=== PATIENT | male | born 1965 | race Caucasian/White ===

== ENCOUNTER 2017-02-04 12:13 | Emergency (ER) | payer OTHER, BC ==
[2017-02-04] MEDS ORDERED: Sodium Chloride 0.9% 10 ML Syringe FLUSH PRN (12:27)
[2017-02-04] MEDS ORDERED: Ondansetron 4 MG/2 ML SDV IVPUSH ONE (12:48)
[2017-02-04] MEDS ORDERED: Sodium Chloride 0.9% 1,000 ML IV ONE (12:48)
[2017-02-04] MEDS ORDERED: Morphine 2 MG/ML Syringe IVPUSH ONE (12:48)
[2017-02-04] MEDS ORDERED: Loperamide 1 MG/5 ML Soln 5 ML UD Cup PO ONE (13:02)
[2017-02-04] MEDS ORDERED: Ketorolac 30 MG/ML SDV IVPUSH ONE (13:02)
[2017-02-04] MEDS ORDERED: Loperamide 2 MG Tab PO ONE (13:06)
[2017-02-04 13:11] LABS: CHLORIDE,CL 100 mmol/L (98-107); SODIUM,NA 135 mmol/L (136-145)
[2017-02-04 13:39] VITALS: BP 143/77
--- NOTE | 2017-02-04 14:12 | EDM.PDOC ---
ED HPI GENERAL MEDICAL PROBLEM - General Chief Complaint: Abdominal Pain Stated Complaint: abdominal pain, diarrhea Time Seen by Provider: 02/04/17 12:27 Source of Information: Reports: Patient History Limitations: Reports: No Limitations - History of Present Illness INITIAL COMMENTS - FREE TEXT/NARRATIVE: Patient drove self to ER with complaint of 12 hours of loose stools and abdominal cramping. No obvious food exposures yesterday to suggest food poisoning. ate same food and feels well. Stools are watery and without blood. Cramping improves after each bowel movement and worsens prior to BM. Feels sweaty when cramping peaks, but otherwise has had no fever/chills. Nauseated. No emesis. Approximately 15 bowel movements since symptoms began. ROS negative for HEENT changes/headache. Resp negative for cough/wheezing/changes. No chest or back pain. negative for changes. No generalized aches/limb changes. Denies neuro changes. Did take first dose of new Statin yesterday. Abdomen Pain Score (Numeric/FACES): 6 - Related Data Allergies Allergy/AdvReac Type Severity Reaction Status Date / Time No Known Allergies Allergy Verified 02/04/17 12:14 Home Meds: Home Meds Metoprolol Succinate [Toprol XL] 200 mg PO DAILY 02/04/17 [History] atorvaSTATin [Lipitor] 10 mg PO DAILY 02/04/17 [History] Past Medical History Cardiovascular History: Reports: High Cholesterol, Hypertension Gastrointestinal History: Reports: Gastritis Social & Family History - Tobacco Use Smoking Status *Q: Former Smoker Used Tobacco, but Quit: Yes Month Tobacco Last Used: Quit years ago - Recreational Drug Use Recreational Drug Use: No ED ROS GENERAL - Review of Systems Review Of Systems: ROS reveals no pertinent complaints other than HPI. ED EXAM, GI/ABD - Physical Exam Exam: See Below Exam Limited By: No Limitations General Appearance: Alert, WD/WN, No Apparent Distress Eyes: Bilateral: Normal Appearance, EOMI Ears: Normal External Exam Nose: Normal Inspection Throat/Mouth: Normal Inspection, Normal Lips, Normal Teeth, Normal Gums, Normal Oropharynx, Normal Voice, No Airway Compromise Head: Atraumatic, Normocephalic Neck: Normal Inspection, Supple, Non-Tender, Full Range of Motion Respiratory/Chest: No Respiratory Distress, Lungs Clear, Normal Breath Sounds, No Accessory Muscle Use, Chest Non-Tender Cardiovascular: Normal Peripheral Pulses, Regular Rate, Rhythm, No Edema, No Murmur GI/Abdominal Exam: Soft, No Distention, No Mass, Tender (mildly tender all 4 quadrants, more so periumbilically.), Abnormal Bowel Sounds (diminished in all 4 quadrants). No: Guarding, Rigid, Rebound (Male) Exam: Deferred Rectal (Males) Exam: Deferred Back Exam: Normal Inspection, Full Range of Motion. No: CVA Tenderness (L), CVA Tenderness (R), Muscle Spasm, Paraspinal Tenderness, Vertebral Tenderness Extremities: Normal Inspection, Normal Range of Motion, Non-Tender, No Pedal Edema, Normal Capillary Refill Neurological: Alert, Oriented, Normal Cognition, Normal Gait, No Motor/Sensory Deficits Psychiatric: Normal Affect, Normal Mood Skin Exam: Warm, Dry, Intact, Normal Color, No Rash Course - Vital Signs Last Recorded V/S: Last Vital Signs Temp 36.8 C 02/04/17 12:27 Pulse 69 02/04/17 12:27 Resp 20 02/04/17 12:27 BP 143/77 H 02/04/17 12:27 Pulse Ox 99 02/04/17 12:27 - Orders/Labs/Meds Orders: Active Orders 24 hr Category Date Time Status Abdomen 2V AP Flat Upright [CR] Stat Exams 02/04/17 12:27 Taken UA W/MICROSCOPIC [URIN] Stat Lab 02/04/17 12:27 Uncollected Sodium Chloride 0.9% [Saline Flush] Med 02/04/17 12:27 Active 10 ml FLUSH ASDIRECTED PRN Saline Lock Insert [OM.PC] Routine Oth 02/04/17 12:27 Ordered Medication Orders Sodium Chloride (Saline Flush) 10 ml FLUSH ASDIRECTED PRN PRN Reason: Keep Vein Open Last Admin: 02/04/17 13:16 Dose: 10 ml Labs: Laboratory Tests 02/04/17 02/04/17 Range/Units 12:44 12:44 WBC 10.0 (4.0-10.2) K/uL RBC 5.24 (4.33-5.41) M/uL Hgb 16.5 (13.1-16.8) g/dL Hct 47.2 (39.0-49.0) % MCV 90.1 (84.0-98.0) fL MCH 31.5 (28.2-33.3) pg MCHC 35.0 (31.7-36.0) g/dL RDW 12.7 (11.2-14.1) % Plt Count 203 (150-350) K/uL Neut % (Auto) 80.9 H (45.0-80.0) % Lymph % (Auto) 10.1 (10.0-50.0) % Real % (Auto) 8.0 (2.0-14.0) % Eos % (Auto) 0.8 (0.0-5.0) % Baso % (Auto) 0.2 (0.0-2.0) % Neut # (Auto) 8.12 H (1.40-7.00) K/uL Lymph # (Auto) 1.01 (0.50-3.50) K/uL Real # (Auto) 0.80 (0.00-1.00) K/uL Eos # (Auto) 0.08 (0.00-0.50) K/uL Baso # (Auto) 0.02 (0.00-0.20) K/uL Sodium 135 L (136-145) mmol/L Potassium 4.3 (3.5-5.1) mmol/L Chloride 100 (98-107) mmol/L Carbon Dioxide 24.3 (21.0-32.0) mmol/L BUN 18 (7-18) mg/dL Creatinine 1.03 (0.51-1.17) mg/dL Est Cr Clr Drug Dosing TNP Estimated GFR (MDRD) > 60 mL/min Glucose 112 H (74-106) mg/dL Calcium 9.6 (8.5-10.1) mg/dL Total Bilirubin 0.6 (0.2-1.0) mg/dL AST 31 (15-37) U/L ALT 80 H (12-78) U/L Alkaline Phosphatase 101 (46-116) IU/L Total Protein 8.4 H (6.4-8.2) g/dL Albumin 4.4 (3.4-5.0) g/dL Meds: Medications Generic Name Dose Route Start Last Admin Trade Name Freq PRN Reason Stop Dose Admin Sodium Chloride 10 ml 02/04/17 12:27 02/04/17 13:16 Saline Flush FLUSH 10 ml ASDIRECTED PRN Administration Keep Vein Open Discontinued Medications Generic Name Dose Route Start Last Admin Trade Name Dino PRN Reason Stop Dose Admin Sodium Chloride 1,000 mls @ 999 mls/hr 02/04/17 12:48 02/04/17 12:56 Normal Saline IV 02/04/17 13:48 999 mls/hr .BOLUS ONE Administration Ketorolac Tromethamine 30 mg 02/04/17 13:02 02/04/17 13:14 Toradol IVPUSH 02/04/17 13:03 30 mg ONETIME ONE Administration Loperamide HCl 4 mg 02/04/17 13:02 02/04/17 13:08 Imodium PO 02/04/17 13:03 Not Given ONETIME ONE Loperamide HCl 4 mg 02/04/17 13:06 02/04/17 13:14 Imodium Ad PO 02/04/17 13:07 4 mg ONETIME ONE Administration Morphine Sulfate 2 mg 02/04/17 12:48 02/04/17 13:08 Morphine IVPUSH 02/04/17 12:49 Not Given ONETIME ONE Ondansetron HCl 4 mg 02/04/17 12:48 02/04/17 13:14 Zofran IVPUSH 02/04/17 12:49 4 mg ONETIME ONE Administration - Radiology Interpretation Free Text/Narrative:: Some air/fluid levels noted suggestive of viral ileus. No free air noted. - Re-Assessments/Exams Free Text/Narrative Re-Assessment/Exam: Patient given IV fluid bolus along with Toradol and Zofran. Was feeling much improved when re-evaluated. WBC normal. Did not give UA. CBC and Chem overall unremarkable. Work slip given. Patient to advance fluids/food as tolerated. Recommended clear liquids for now. To follow up as needed. Suspect single dose Lipitor would not give this amount of GI disturbance, however diarrhea is a listed side effect of Lipitor. Recommended that patient hold off on taking additional Lipitor for one week then trying it again. If similar GI symptoms return then he should discontinue that medication and follow up with his provider. Departure - Departure Time of Disposition: 14:10 Disposition: Home, Self-Care 01 Condition: Good Clinical Impression: Gastroenteritis - Discharge Information Instructions: Loperamide tablets or capsules, Ketorolac injection, Ondansetron injection, Viral Gastroenteritis, Adult, [id number], Diarrhea, Adult, Easy-to- Read Referrals: Kala Sommers PA-C [Primary Care Provider] - Forms: ED Department Discharge, ED Return to Work/School Form Additional Instructions: Advance diet as tolerated. Imodium as needed for continued loose stools. Follow up as needed if you have worsening problems. - My Orders Last 24 Hours: My Active Orders 02/04/17 12:27 Abdomen 2V AP Flat Upright [CR] Stat UA W/MICROSCOPIC [URIN] Stat Sodium Chloride 0.9% [Saline Flush] 10 ml FLUSH ASDIRECTED PRN Saline Lock Insert [OM.PC] Routine - Assessment/Plan Last 24 Hours: My Active Orders 02/04/17 12:27 Abdomen 2V AP Flat Upright [CR] Stat UA W/MICROSCOPIC [URIN] Stat Sodium Chloride 0.9% [Saline Flush] 10 ml FLUSH ASDIRECTED PRN Saline Lock Insert [OM.PC] Routine
== END 2017-02-04 14:20 | disposition home or self-care (01) ==
LOC: LL.ED 12:13
DX: K52.9 Noninfective gastroenteritis and colitis, unspecified (principal); Z87.891 Personal history of nicotine dependence
CPT/HCPCS: 36415; 74020; 80053; 85025; 96361; 96374; 96375; 99284; A9270; J1885; J2405; J7030; J7050

== ENCOUNTER 2017-04-10 12:03 | Day surgery (SDC) | payer OTHER, BC ==
[~2017-04-10 12:03] MED LIST: Lactated Ringers 1,000 ML IV SCH; Sodium Chloride 0.9% 10 ML Syringe FLUSH PRN
[2017-04-10] MEDS ORDERED: fentaNYL 100 MCG/2 ML SDV ONE ×2 (14:21→14:27)
[2017-04-10] MEDS ORDERED: Midazolam 1 MG/ML 2 ML SDV ONE ×2 (14:21→14:27)
[2017-04-10] MEDS ORDERED: Propofol 200 MG/20 ML SDV ONE ×2 (14:22→14:27)
--- NOTE | 2017-04-10 14:24 | PCM.PN ---
- General Info Date of Service: 04/10/17 - Review of Systems Systems Review Comment:: 51-year-old male referred by Arnav Horne for colonoscopy. This is his initial screening colonoscopy. He denies any recent colon problems. He states his mother had colon polyps. He is medically stable to proceed with no significant change in his health status since his recent history and physical which is reviewed. I discussed the proposed colonoscopy with the patient. Risks such as but not limited to bleeding and GI injury reviewed. He appears to understand and agrees to proceed. - Patient Data Vitals - Most Recent: Last Vital Signs Temp 97.7 F 04/10/17 12:24 Pulse 56 L 04/10/17 12:24 Resp 20 04/10/17 12:24 BP 136/95 H 04/10/17 12:24 Pulse Ox 100 04/10/17 12:24 Weight - Most Recent: 113.398 kg Med Orders - Current: Current Medications Lactated Ringer's (Ringers, Lactated) 1,000 mls @ 125 mls/hr IV ASDIRECTED MAXINE Last Admin: 04/10/17 12:43 Dose: 125 mls/hr Sodium Chloride (Saline Flush) 10 ml FLUSH ASDIRECTED PRN PRN Reason: Keep Vein Open - Problem List Review Problem List Initiated/Reviewed/Updated: Yes - My Orders Last 24 Hours: My Active Orders 04/10/17 12:00 Patient Status [ADT] Routine Peripheral IV Care [RC] . DIRECTED Verify Patient Consent Obtain [RC] ASDIRECTED Lactated Ringers [Ringers, Lactated] 1,000 ml IV ASDIRECTED Sodium Chloride 0.9% [Saline Flush] 10 ml FLUSH ASDIRECTED PRN Peripheral IV Insertion Adult [OM.PC] Routine - Assessment Assessment:: Colon cancer screening - Plan Plan:: Colonoscopy
--- NOTE | 2017-04-10 15:12 | PCM.OPNOTE ---
- General Post-Op/Procedure Note Date of Surgery/Procedure: 04/10/17 Operative Procedure(s): Colonoscopy with polypectomy Findings: Multiple colon polyps Pre Op Diagnosis: Colon cancer screening Post-Op Diagnosis: Colon polyps Anesthesia Technique: MAC Primary Surgeon: Kobe Lebron Pathology: Colon polyps Output, Urine Amount: 0 EBL in mLs: 0 Complications: None Condition: Good Free Text/Narrative:: Intake & Output 04/10/17 04/10/17 04/10/17 06:59 14:59 22:59 Intake Total 1000 Balance 1000
[2017-04-10 19:04] VITALS: BP 161/92
--- NOTE | 2017-04-11 08:06 | OR ---
Date of Procedure: 04/10/2017 PREOPERATIVE DIAGNOSIS: Colon cancer screening. POSTOPERATIVE DIAGNOSIS: Colon polyps. OPERATION PERFORMED: Colonoscopy with polypectomy. INDICATIONS FOR SURGERY: This 51-year-old male presents today for his initial screening colonoscopy. He denies any recent change in bowel pattern. FINDINGS: Multiple polyps were noted on today's exam. There is a 6-mm polyp in the rectum, 10 cm from the anal verge, an 8 mm polyp in the sigmoid colon, 15 cm from the anal verge. There was a 5 mm polyp of the splenic flexure, a 5 mm polyp in the mid transverse colon, and cluster of three polyps in the region of the hepatic flexure, these range in size from 5 to 8 mm. Each of these polyps is semi pedunculated. The remainder of the colon appears normal as does the distal portion of the terminal ileum. PROCEDURE IN DETAIL: The patient was taken to the operating room. He was given intravenous sedation and with him in the left lateral decubitus position, digital rectal exam was performed showing no rectal masses. The Olympus colonoscope was inserted into the rectum. Retroflexed examination of the rectal canal was performed. The scope was then carefully advanced under direct visualization and during advancement of the scope, the above-described polyps were identified. As these polyps were encountered, each are removed with cautery snare and retrieved into a polyp trap. Once the cecum had been reached, cecal acquisition was confirmed by noting the normal internal cecal anatomy including the appendiceal orifice and ileocecal valve. The light was also noted to transilluminate the abdominal wall in the right lower quadrant. The ileocecal valve was cannulated and the terminal ileum also examined and found to appear normal. Slowly, the scope was then withdrawn, sequentially re-examining the colonic segments. Once the entire colon and rectum had been fully examined with no sign of any complicating process, the scope was removed and the patient was taken from the operating room in satisfactory condition. ESTIMATED BLOOD LOSS: Zero. COMPLICATIONS: None. PROGNOSIS: Good. STEVE Lebron MD /[id number]
== END 2017-04-10 17:00 | disposition home or self-care (01) ==
LOC: LL.SDS 12:03
PROVIDERS: ATTEND Surgery
DX: Z12.11 Encounter for screening for malignant neoplasm of colon (principal); D12.3 Benign neoplasm of transverse colon; D12.5 Benign neoplasm of sigmoid colon; K62.1 Rectal polyp; I10 Essential (primary) hypertension; E78.00 Pure hypercholesterolemia, unspecified; Z79.899 Other long term (current) drug therapy; Z87.891 Personal history of nicotine dependence; Z83.71 Family history of colonic polyps; Z98.890 Other specified postprocedural states; Z83.3 Family history of diabetes mellitus
CPT/HCPCS: 45385; J2250; J2704; J3010; J7120; 00810-QZ

== ENCOUNTER 2021-04-09 20:13 | Inpatient (IN) | payer BC, OTHER ==
[2021-04-09] MEDS ORDERED: Sodium Chloride 0.9% 1,000 ML IV SCH ×2 (20:30→21:30)
--- NOTE | 2021-04-09 20:43 | EDM.PDOC ---
ED HPI GENERAL MEDICAL PROBLEM - General Chief Complaint: General Stated Complaint: cough, syncopal episode, SOB Time Seen by Provider: 04/09/21 20:25 Source of Information: Reports: Patient, Family History Limitations: Reports: No Limitations - History of Present Illness INITIAL COMMENTS - FREE TEXT/NARRATIVE: Patient presents to the ED with his after a syncopal event at home. He has been ill for 6 days with fever that was present for about three days, followed by cough, headache, bodyaches and loss of appetite. he has been taking aleve for pain with last dose at 15:00. He has not sick contacts. Is not vaccinated against COVID 19. Has hypertension and takes a beta anibal for this. Notes that his urine has been dark in the last couple of days, but thinks it could be due to his alkaselzer cold medication that he is taking. Normal stools, but less due to less food intake. No loss of taste or smell. biggest complaint over the last couple of days is fatigue, shortness of breath with activity. Tonight he got up to get a glass of milk, sat back down with it and had a syncopal episode. He slumped over in his chair on the counter. He came to quickly and was fine. no headache, premonition or chest pain prior to. brought him in with no neurological deficit. No lung disease. 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: aleve - Related Data Allergies Allergy/AdvReac Type Severity Reaction Status Date / Time No Known Allergies Allergy Verified 04/10/17 12:26 Home Meds: Home Meds Metoprolol Succinate [Toprol XL] 200 mg PO DAILY 02/04/17 [History] atorvaSTATin [Lipitor] 10 mg PO BEDTIME 04/09/21 [History] Past Medical History Cardiovascular History: Reports: High Cholesterol, Hypertension Respiratory History: Reports: None Gastrointestinal History: Reports: None Genitourinary History: Reports: None Musculoskeletal History: Reports: Fracture Neurological History: Reports: None Psychiatric History: Reports: None Endocrine/Metabolic History: Reports: Obesity/BMI 30+ Other Endocrine/Metabolic History: Hx mildly elevated glucose levels with normal A1c Hematologic History: Reports: None Immunologic History: Reports: None Oncologic (Cancer) History: Reports: None Dermatologic History: Reports: None - Past Surgical History HEENT Surgical History: Reports: Other (See Below) Other HEENT Surgeries/Procedures: Cyst removal on neck Social & Family History - Tobacco Use Tobacco Use Status *Q: Never Tobacco User - Caffeine Use Caffeine Use: Reports: Tea - Alcohol Use Alcohol Use History: Yes Date/Time of Last Drink Comment: 04/02/2021 - Recreational Drug Use Recreational Drug Use: No Drug Use in Last 12 Months: No ED ROS GENERAL - Review of Systems Review Of Systems: See Below Constitutional: Reports: Fever, Chills, Malaise, Weakness, Fatigue, Decreased Appetite HEENT: Denies: Ear Discharge, Eye Discharge, Sinus Problem, Throat Pain, Throat Swelling, Vertigo Respiratory: Reports: Shortness of Breath, Cough. Denies: Wheezing, Pleuritic Chest Pain, Sputum Cardiovascular: Reports: Dyspnea on Exertion, Syncope. Denies: Chest Pain, Blood Pressure Problem, Edema GI/Abdominal: Denies: Abdominal Pain, Constipation, Diarrhea, Nausea, Stool Incontinence, Vomiting : Reports: Other (dark urine for a couple of days) Skin: Reports: No Symptoms Neurological: Reports: Headache, Syncope, Weakness Psychiatric: Reports: No Symptoms Hematologic/Lymphatic: Reports: No Symptoms Immunologic: Reports: No Symptoms ED EXAM, GENERAL - Physical Exam Exam: See Below Exam Limited By: No Limitations General Appearance: Alert, WD/WN, No Apparent Distress Eye Exam: Bilateral Eye: EOMI, Normal Inspection, PERRL Ears: Normal External Exam, Normal Canal, Hearing Grossly Normal, Normal TMs Nose: Normal Inspection, Normal Mucosa, No Blood Throat/Mouth: Normal Lips, Normal Teeth, Normal Voice, Other (mild tacky mucous membranes) Head: Atraumatic Neck: Normal Inspection Respiratory/Chest: No Respiratory Distress, Normal Breath Sounds, No Accessory Muscle Use, Decreased Breath Sounds (bases). No: Crackles, Rales, Wheezing Cardiovascular: Normal Peripheral Pulses, Regular Rate, Rhythm, No Edema, No Murmur GI/Abdominal: Normal Bowel Sounds, Soft, Non-Tender, No Distention Back Exam: Normal Inspection, Full Range of Motion. No: CVA Tenderness (L), CVA Tenderness (R) Extremities: Normal Inspection, Normal Range of Motion, Non-Tender, Normal Capillary Refill, Other (skin tenting) Neurological: Alert, Oriented, CN II-XII Intact, Normal Cognition, Normal Gait, No Motor/Sensory Deficits Psychiatric: Normal Affect Skin Exam: Warm, Dry, No Rash #1 Interpretation EKG Date: 04/09/21 Time: 22:24 Rhythm: NSR Campbell: Normal P-Wave: Present QRS: Normal ST-T: Normal Comparison: NA - No Prior EKG EKG Interpretation Comments: baseline artifact, poor quality Course - Vital Signs Last Recorded V/S: Last Vital Signs Temp 36.9 C 04/09/21 22:49 Pulse 81 04/09/21 22:49 Resp 20 04/09/21 22:49 BP 152/86 H 04/09/21 22:49 Pulse Ox 91 L 04/09/21 22:49 - Orders/Labs/Meds Orders: Active Orders 24 hr Category Date Time Status Admission Status [Patient Status] [ADT] Routine ADT 04/09/21 21:52 Active EKG Documentation Completion [RC] ASDIRECTED Care 04/09/21 21:30 Active Peripheral IV Care [RC] . DIRECTED Care 04/09/21 20:25 Active PE Chest [Ang Chest] [CT] Stat Exams 04/09/21 21:35 Taken UA RFX MILTON AND CULT IF INDIC [URIN] Stat Lab 04/09/21 20:39 Ordered Sodium Chloride 0.9% [Normal Saline] 1,000 ml Med 04/09/21 20:30 Active IV ASDIRECTED Sodium Chloride 0.9% [Normal Saline] 1,000 ml Med 04/09/21 21:30 Active IV ASDIRECTED Sodium Chloride 0.9% [Saline Flush] Med 04/09/21 20:25 Active 10 ml FLUSH ASDIRECTED PRN atorvaSTATin [Lipitor] Med 04/10/21 20:00 Active 10 mg PO BEDTIME Peripheral IV Insertion Adult [OM.PC] Routine Oth 04/09/21 20:25 Ordered Medication Orders Acetaminophen (Acetaminophen 325 Mg Tab) 650 mg PO Q4H PRN PRN Reason: Fever Greater Than 101 Hydrocodone Bitart/Acetaminophen (Acetaminophen/Hydrocodone 325-5 Mg Tab) 1 tab PO Q4H PRN PRN Reason: Pain (moderate 4-6) Albuterol (Albuterol 0.083% 2.5 Mg/3 Ml Neb Soln) 2.5 mg NEB Q2H PRN PRN Reason: Shortness Of Breath/wheezing Albuterol/Ipratropium (Albuterol/Ipratropium 3.0-0.5 Mg/3 Ml Neb Soln) 3 ml NEB BID [facility] Ascorbic Acid (Ascorbic Acid 500 Mg Tab) 500 mg PO BID [facility] Atorvastatin Calcium (Atorvastatin 10 Mg Tab) 10 mg PO BEDTIME [facility] Benzonatate (Benzonatate 100 Mg Cap) 200 mg PO TID [facility] Bisacodyl (Bisacodyl 5 Mg Tab) 5 mg PO DAILY PRN PRN Reason: Constipation Cholecalciferol (Cholecalciferol (Vitamin D3) 5,000 Unit Tab) 5,000 unit PO DAILY [facility] Dexamethasone (Dexamethasone 2 Mg Tab) 6 mg PO DAILY [facility] Stop: 04/19/21 08:01 Enoxaparin Sodium (Enoxaparin 40 Mg/0.4 Ml Syringe) 40 mg SUBCUT DAILY [facility] Sodium Chloride (Normal Saline) 1,000 mls @ 999 mls/hr IV ASDIRECTED [facility] Last Admin: 04/09/21 20:50 Dose: 999 mls/hr Documented by: BERHANE Sodium Chloride (Normal Saline) 1,000 mls @ 999 mls/hr IV ASDIRECTED [facility] Last Admin: 04/09/21 21:50 Dose: 999 mls/hr Documented by: BERHANE Remdesivir 100 mg/ Sodium (Chloride) 100 mls @ 100 mls/hr IV Q24H [facility] Stop: 04/13/21 09:59 Ibuprofen (Ibuprofen 600 Mg Tab) 600 mg PO Q6H PRN PRN Reason: Pain (mild 1-3) Melatonin (Melatonin 3 Mg Tab) 6 mg PO BEDTIME PRN PRN Reason: Insomnia Metoprolol Succinate (Metoprolol Succinate 50 Mg Tab.Er) 200 mg PO DAILY [facility] Ondansetron HCl (Ondansetron 4 Mg Tab.Dis) 4 mg PO Q4H PRN PRN Reason: Nausea/Vomiting Ondansetron HCl (Ondansetron 4 Mg/2 Ml Sdv) 4 mg IVPUSH Q4H PRN PRN Reason: Nausea/Vomiting Sodium Chloride (Sodium Chloride 0.9% 10 Ml Syringe) 10 ml FLUSH ASDIRECTED PRN PRN Reason: Keep Vein Open Zinc Gluconate (Zinc (Zinc Gluconate) 50 Mg Tab) 50 mg PO DAILY [facility] Labs: Laboratory Tests 04/09/21 04/09/21 04/09/21 Range/Units 20:25 20:45 20:45 WBC 6.2 (4.0-10.2) K/uL RBC 4.68 (4.33-5.41) M/uL Hgb 14.3 D (13.1-16.8) g/dL Hct 42.4 (39.0-49.0) % MCV 90.6 (84.0-98.0) fL MCH 30.6 (28.2-33.3) pg MCHC 33.7 (31.7-36.0) g/dL RDW 12.8 (11.2-14.1) % Plt Count 105 L D (150-350) K/uL Neut % (Auto) 84.2 H (45.0-80.0) % Lymph % (Auto) 11.6 (10.0-50.0) % Bulloch % (Auto) 4.2 (2.0-14.0) % Eos % (Auto) 0.0 (0.0-5.0) % Baso % (Auto) 0.0 (0.0-2.0) % Neut # (Auto) 5.22 (1.40-7.00) K/uL Lymph # (Auto) 0.72 (0.50-3.50) K/uL Bulloch # (Auto) 0.26 (0.00-1.00) K/uL Eos # (Auto) 0.00 (0.00-0.50) K/uL Baso # (Auto) 0.00 (0.00-0.20) K/uL D-Dimer, Quantitative 1710 H (0-400) ng/mL Sodium (136-145) mmol/L Potassium (3.5-5.1) mmol/L Chloride (98-107) mmol/L Carbon Dioxide (21.0-32.0) mmol/L Anion Gap (7-15) meq/L BUN (7-18) mg/dL Creatinine (0.51-1.17) mg/dL Est Cr Clr Drug Dosing Estimated GFR (MDRD) mL/min Glucose (70-99) mg/dL Calcium (8.5-10.1) mg/dL Magnesium (1.8-2.4) mg/dL Total Bilirubin (0.2-1.0) mg/dL AST (15-37) U/L ALT (12-78) U/L Alkaline Phosphatase (46-116) IU/L Troponin I High Sens (<=76) ng/L C-Reactive Protein (<=0.9) mg/dL Total Protein (6.4-8.2) g/dL Albumin (3.4-5.0) g/dL SARS-CoV-2 Ag (Rapid) Positive A (NEGATIVE) 04/09/21 04/09/21 Range/Units 20:45 20:45 WBC (4.0-10.2) K/uL RBC (4.33-5.41) M/uL Hgb (13.1-16.8) g/dL Hct (39.0-49.0) % MCV (84.0-98.0) fL MCH (28.2-33.3) pg MCHC (31.7-36.0) g/dL RDW (11.2-14.1) % Plt Count (150-350) K/uL Neut % (Auto) (45.0-80.0) % Lymph % (Auto) (10.0-50.0) % Bulloch % (Auto) (2.0-14.0) % Eos % (Auto) (0.0-5.0) % Baso % (Auto) (0.0-2.0) % Neut # (Auto) (1.40-7.00) K/uL Lymph # (Auto) (0.50-3.50) K/uL Bulloch # (Auto) (0.00-1.00) K/uL Eos # (Auto) (0.00-0.50) K/uL Baso # (Auto) (0.00-0.20) K/uL D-Dimer, Quantitative (0-400) ng/mL Sodium 137 (136-145) mmol/L Potassium 4.1 (3.5-5.1) mmol/L Chloride 99 (98-107) mmol/L Carbon Dioxide 27.5 (21.0-32.0) mmol/L Anion Gap 10.5 (7-15) meq/L BUN 14 (7-18) mg/dL Creatinine 0.98 (0.51-1.17) mg/dL Est Cr Clr Drug Dosing TNP Estimated GFR (MDRD) > 60 mL/min Glucose 139 H (70-99) mg/dL Calcium 8.4 L (8.5-10.1) mg/dL Magnesium 2.4 (1.8-2.4) mg/dL Total Bilirubin 0.5 (0.2-1.0) mg/dL AST 57 H (15-37) U/L ALT 64 (12-78) U/L Alkaline Phosphatase 72 (46-116) IU/L Troponin I High Sens 5 (<=76) ng/L C-Reactive Protein 23.2 H (<=0.9) mg/dL Total Protein 6.9 (6.4-8.2) g/dL Albumin 3.3 L (3.4-5.0) g/dL SARS-CoV-2 Ag (Rapid) (NEGATIVE) Meds: Medications Generic Name Dose Route Start Last Admin Trade Name Freq PRN Reason Stop Dose Admin Acetaminophen 650 mg 04/09/21 22:04 Acetaminophen 325 Mg Tab PO Q4H PRN Fever Greater Than 101 Hydrocodone Bitart/Acetaminophen 1 tab 04/09/21 22:04 Acetaminophen/Hydrocodone 325-5 Mg Tab PO Q4H PRN Pain (moderate 4-6) Albuterol 2.5 mg 04/09/21 22:04 Albuterol 0.083% 2.5 Mg/3 Ml Neb Soln NEB Q2H PRN Shortness Of Breath/wheezing Albuterol/Ipratropium 3 ml 04/10/21 08:00 Albuterol/Ipratropium 3.0-0.5 Mg/3 Ml Neb Soln NEB BID [facility] Ascorbic Acid 500 mg 04/10/21 08:00 Ascorbic Acid 500 Mg Tab PO BID [facility] Atorvastatin Calcium 10 mg 04/10/21 20:00 Atorvastatin 10 Mg Tab PO BEDTIME [facility] Benzonatate 200 mg 04/10/21 08:00 Benzonatate 100 Mg Cap PO TID [facility] Bisacodyl 5 mg 04/09/21 22:04 Bisacodyl 5 Mg Tab PO DAILY PRN Constipation Cholecalciferol 5,000 unit 04/10/21 08:00 Cholecalciferol (Vitamin D3) 5,000 Unit Tab PO DAILY [facility] Dexamethasone 6 mg 04/10/21 08:00 Dexamethasone 2 Mg Tab PO 04/19/21 08:01 DAILY [facility] Enoxaparin Sodium 40 mg 04/10/21 08:00 Enoxaparin 40 Mg/0.4 Ml Syringe SUBCUT DAILY [facility] Sodium Chloride 1,000 mls @ 999 mls/hr 04/09/21 20:30 04/09/21 20:50 Normal Saline IV 999 mls/hr ASDIRECTED [facility] Administration Sodium Chloride 1,000 mls @ 999 mls/hr 04/09/21 21:30 04/09/21 21:50 Normal Saline IV 999 mls/hr ASDIRECTED [facility] Administration Remdesivir 100 mg/ Sodium 100 mls @ 100 mls/hr 04/10/21 09:00 Chloride IV 04/13/21 09:59 Q24H [facility] Ibuprofen 600 mg 04/09/21 22:04 Ibuprofen 600 Mg Tab PO Q6H PRN Pain (mild 1-3) Melatonin 6 mg 04/09/21 22:04 Melatonin 3 Mg Tab PO BEDTIME PRN Insomnia Metoprolol Succinate 200 mg 04/10/21 08:00 Metoprolol Succinate 50 Mg Tab.Er PO DAILY [facility] Ondansetron HCl 4 mg 04/09/21 22:04 Ondansetron 4 Mg Tab.Dis PO Q4H PRN Nausea/Vomiting Ondansetron HCl 4 mg 04/09/21 22:04 Ondansetron 4 Mg/2 Ml Sdv IVPUSH Q4H PRN Nausea/Vomiting Sodium Chloride 10 ml 04/09/21 20:25 Sodium Chloride 0.9% 10 Ml Syringe FLUSH ASDIRECTED PRN Keep Vein Open Zinc Gluconate 50 mg 04/10/21 08:00 Zinc (Zinc Gluconate) 50 Mg Tab PO DAILY [facility] Discontinued Medications Generic Name Dose Route Start Last Admin Trade Name Freq PRN Reason Stop Dose Admin Dexamethasone 6 mg 04/09/21 21:48 04/09/21 21:57 Dexamethasone 2 Mg Tab PO 04/09/21 21:49 6 mg ONETIME ONE Administration Remdesivir 200 mg/ Sodium 250 mls @ 250 mls/hr 04/09/21 21:49 04/09/21 23:14 Chloride IV 04/09/21 22:48 250 mls/hr ONETIME ONE Administration Iopamidol 100 ml 04/09/21 21:52 04/09/21 22:42 Iopamidol 755 Mg/Ml 100 Ml Bottle IVPUSH 04/09/21 21:53 100 ml ONETIME ONE Administration Non-Formulary Medication 200 mg 04/10/21 08:00 Metoprolol Succinate [Toprol Xl] PO DAILY [facility] - Radiology Interpretation Free Text/Narrative:: ct pe protocol with moderate covid pneumonia, no PE, discussed with radiologist, see report - Re-Assessments/Exams Free Text/Narrative Re-Assessment/Exam: 04/09/21 20:44 patient is clinically dehydrated, not taking in fluids, but difficult to find a vein in. Will start an IV, give one liter of normal saline, check labs, to include troponin, ddimer and check covid. Not a smoker, last drink 7 days ago. no drug use. Is open to treatments for covid. Sats at rest on room air are 89- 91%. Breathing is not labored. will await the ddimer to determine imaging 04/09/21 21:32 Patient is positive for covid. sats of 89% at rest. Needs admission, remdesivir and decadron. Discussed incentive spirometer, nebs, oxygen, and proning. patient is agreeable. is vaccinated and he has notified work as he has been there this week 04/09/21 21:48 ddimer and crp are elevated, will get a ct pe protocol, then admit. 04/09/21 23:00 Patient is moved to his room as inpatient. Allowed to walk to the bathroom without oxygen. Did drop to 75%, recovered quickly with oxygen at 2-3 liters. Needs oxygen at all times. Departure - Departure Time of Disposition: 23:00 Disposition: Admitted As Inpatient 66 Condition: Good Clinical Impression: Acute respiratory disease due to COVID-19 virus, Hypoxia, Thrombocytopenia associated with COVID-19 - Discharge Information Sepsis Event Note (ED) - Evaluation Sepsis Screening Result: No Definite Risk - Focused Exam Vital Signs: Vital Signs Temp Pulse Resp BP Pulse Ox 04/09/21 21:25 37.6 C 86 27 H 152/77 H 91 L 04/09/21 21:10 84 28 H 139/69 91 L 04/09/21 20:55 84 26 H 137/74 91 L 04/09/21 20:24 81 24 H 135/72 91 L 04/09/21 20:17 37.2 C 79 18 138/75 91 L - My Orders Last 24 Hours: My Active Orders 04/09/21 20:25 Peripheral IV Care [RC] . DIRECTED Sodium Chloride 0.9% [Saline Flush] 10 ml FLUSH ASDIRECTED PRN Peripheral IV Insertion Adult [OM.PC] Routine 04/09/21 20:30 Sodium Chloride 0.9% [Normal Saline] 1,000 ml IV ASDIRECTED 04/09/21 20:39 UA RFX MILTON AND CULT IF INDIC [URIN] Stat 04/09/21 21:30 EKG Documentation Completion [RC] ASDIRECTED Sodium Chloride 0.9% [Normal Saline] 1,000 ml IV ASDIRECTED 04/09/21 21:35 PE Chest [Ang Chest] [CT] Stat 04/09/21 21:52 Admission Status [Patient Status] [ADT] Routine 04/10/21 20:00 atorvaSTATin [Lipitor] 10 mg PO BEDTIME - Assessment/Plan Last 24 Hours: My Active Orders 04/09/21 20:25 Peripheral IV Care [RC] . DIRECTED Sodium Chloride 0.9% [Saline Flush] 10 ml FLUSH ASDIRECTED PRN Peripheral IV Insertion Adult [OM.PC] Routine 04/09/21 20:30 Sodium Chloride 0.9% [Normal Saline] 1,000 ml IV ASDIRECTED 04/09/21 20:39 UA RFX [place] AND CULT IF INDIC [URIN] Stat 04/09/21 21:30 EKG Documentation Completion [RC] ASDIRECTED Sodium Chloride 0.9% [Normal Saline] 1,000 ml IV ASDIRECTED 04/09/21 21:35 PE Chest [Ang Chest] [CT] Stat 04/09/21 21:52 Admission Status [Patient Status] [ADT] Routine 04/10/21 20:00 atorvaSTATin [Lipitor] 10 mg PO BEDTIME
[2021-04-09 21:24] LABS: ANION GAP 10.5 meq/L (7-15); CHLORIDE,CL 99 mmol/L (98-107); SODIUM,NA 137 mmol/L (136-145)
[2021-04-09] MEDS ORDERED: Dexamethasone 2 MG Tab PO ONE (21:48)
[2021-04-09] MEDS ORDERED: REMDESIVIR 200 MG in Sodium Chloride 0.9% 250 ML IV ONE (21:49)
[2021-04-09] MEDS ORDERED: Iopamidol 755 Mg/ML 100 ML Bottle IVPUSH ONE (21:52)
[2021-04-09] MEDS ORDERED: Melatonin 3 MG Tab PO PRN (22:04)
[2021-04-09] MEDS ORDERED: Ondansetron 4 MG/2 ML SDV IVPUSH PRN (22:04)
[2021-04-09] MEDS ORDERED: Ibuprofen 600 MG Tab PO PRN (22:04)
[2021-04-09] MEDS ORDERED: Acetaminophen/HYDROcodone 325-5 MG Tab PO PRN (22:04)
[2021-04-09] MEDS ORDERED: Ondansetron 4 MG Tab.DIS PO PRN (22:04)
[2021-04-09] MEDS ORDERED: Bisacodyl 5 MG Tab PO PRN (22:04)
[2021-04-10] MEDS: Albuterol 0.083% 2.5 MG/3 ML Neb Soln NEB PRN (00:34)
[2021-04-10] MEDS: Sodium Chloride 0.9% 10 ML Syringe FLUSH PRN (00:35)
[2021-04-10] MEDS ORDERED: METOPROLOL SUCCINATE 200 MG PO SCH (08:00)
[2021-04-10] MEDS: Albuterol/Ipratropium 3.0-0.5 MG/3 ML Neb Soln NEB SCH ×2 (08:01→17:30)
[2021-04-10] MEDS: Enoxaparin 40 MG/0.4 ML Syringe SUBCUT SCH (08:01)
[2021-04-10] MEDS: Dexamethasone 2 MG Tab PO SCH (08:02)
[2021-04-10] MEDS: Cholecalciferol (Vitamin D3) 5,000 UNIT Tab PO SCH (08:03)
[2021-04-10] MEDS: Metoprolol Succinate 50 MG Tab.ER PO SCH (08:03)
[2021-04-10] MEDS: Zinc (Zinc Gluconate) 50 MG Tab PO SCH (08:03)
[2021-04-10] MEDS: Benzonatate 100 MG Cap PO SCH ×3 (08:03→17:31)
[2021-04-10] MEDS: Ascorbic Acid 500 MG Tab PO SCH ×2 (08:03→17:30)
[2021-04-10 08:19] LABS: ANION GAP 9.3 meq/L (7-15); CHLORIDE,CL 103 mmol/L (98-107); SODIUM,NA 140 mmol/L (136-145)
[2021-04-10] MEDS ORDERED: REMDESIVIR 100 MG in Sodium Chloride 0.9% 100 ML IV SCH (09:00)
--- NOTE | 2021-04-10 10:30 | PCM.PN ---
- General Info Date of Service: 04/10/21 Admission Dx/Problem (Free Text): Admission Diagnosis/Problem Admission Diagnosis/Problem Acute respiratory failure with hypoxemia due to covid 19 Subjective Update: Patient had a good night. Managed to sleep prone. Sats are 93% on 3.5 lpm nc. feeling better. Doing the incentive spirometer to 1999. EAting today and taking in fluids. no pain. no fevers. Had first dose of remdesivir yesterday Functional Status: Reports: Pain Controlled, Tolerating Diet, Ambulating, Urinating, Incentive Spirometry. Denies: New Symptoms - Review of Systems General: Reports: Fatigue HEENT: Reports: No Symptoms Pulmonary: Reports: Shortness of Breath, Cough (unchanged, but improvement in deep breaths) Cardiovascular: Reports: No Symptoms Gastrointestinal: Reports: No Symptoms Genitourinary: Reports: No Symptoms Musculoskeletal: Reports: Other (myalgias improving) Skin: Reports: No Symptoms Neurological: Reports: No Symptoms. Denies: Confusion (improving mentation per the ) Psychiatric: Reports: No Symptoms - Patient Data Vitals - Most Recent: Last Vital Signs Temp 36.4 C 04/10/21 08:00 Pulse 70 04/10/21 08:03 Resp 20 04/10/21 08:00 BP 134/86 04/10/21 08:03 Pulse Ox 96 04/10/21 08:00 Weight - Most Recent: 114.305 kg I&O - Last 24 Hours: Intake & Output 04/09/21 04/10/21 04/10/21 22:59 06:59 14:59 Intake Total 2690 Output Total 850 Balance 1840 Imaging Impressions - Last 24 Hours: CT chest PE without pulmonary embolus, moderate covid pneumonia Lab Results Last 24 Hours: Laboratory Results - last 24 hr 04/09/21 04/09/21 04/09/21 Range/Units 20:25 20:39 20:45 WBC 6.2 (4.0-10.2) K/uL RBC 4.68 (4.33-5.41) M/uL Hgb 14.3 D (13.1-16.8) g/dL Hct 42.4 (39.0-49.0) % MCV 90.6 (84.0-98.0) fL MCH 30.6 (28.2-33.3) pg MCHC 33.7 (31.7-36.0) g/dL RDW 12.8 (11.2-14.1) % Plt Count 105 L D (150-350) K/uL Neut % (Auto) 84.2 H (45.0-80.0) % Lymph % (Auto) 11.6 (10.0-50.0) % Donley % (Auto) 4.2 (2.0-14.0) % Eos % (Auto) 0.0 (0.0-5.0) % Baso % (Auto) 0.0 (0.0-2.0) % Neut # (Auto) 5.22 (1.40-7.00) K/uL Lymph # (Auto) 0.72 (0.50-3.50) K/uL Donley # (Auto) 0.26 (0.00-1.00) K/uL Eos # (Auto) 0.00 (0.00-0.50) K/uL Baso # (Auto) 0.00 (0.00-0.20) K/uL D-Dimer, Quantitative (0-400) ng/mL Sodium (136-145) mmol/L Potassium (3.5-5.1) mmol/L Chloride (98-107) mmol/L Carbon Dioxide (21.0-32.0) mmol/L Anion Gap (7-15) meq/L BUN (7-18) mg/dL Creatinine (0.51-1.17) mg/dL Est Cr Clr Drug Dosing Estimated GFR (MDRD) mL/min Glucose (70-99) mg/dL Calcium (8.5-10.1) mg/dL Magnesium (1.8-2.4) mg/dL Total Bilirubin (0.2-1.0) mg/dL Direct Bilirubin (0.0-0.2) mg/dL AST (15-37) U/L ALT (12-78) U/L Alkaline Phosphatase (46-116) IU/L Troponin I High Sens (<=76) ng/L C-Reactive Protein (<=0.9) mg/dL Total Protein (6.4-8.2) g/dL Albumin (3.4-5.0) g/dL Specimen Type Urincc Urine Color Yellow Urine Appearance Clear Urine pH 7.0 (5.0-9.0) Ur Specific Cutler 1.010 (1.005-1.030) Urine Protein Negative (NEGATIVE) mg/dL Urine Glucose (UA) Negative (NEGATIVE) mg/dL Urine Ketones Negative (NEGATIVE) mg/dL Urine Occult Blood Negative (NEGATIVE) Urine Nitrite Negative (NEGATIVE) Urine Bilirubin Negative (NEGATIVE) Urine Urobilinogen 1.0 (0.2-1.0) E.U./dL Ur Leukocyte Esterase Negative (NEGATIVE) SARS-CoV-2 Ag (Rapid) Positive A (NEGATIVE) 04/09/21 04/09/21 04/09/21 Range/Units 20:45 20:45 20:45 WBC (4.0-10.2) K/uL RBC (4.33-5.41) M/uL Hgb (13.1-16.8) g/dL Hct (39.0-49.0) % MCV (84.0-98.0) fL MCH (28.2-33.3) pg MCHC (31.7-36.0) g/dL RDW (11.2-14.1) % Plt Count (150-350) K/uL Neut % (Auto) (45.0-80.0) % Lymph % (Auto) (10.0-50.0) % Donley % (Auto) (2.0-14.0) % Eos % (Auto) (0.0-5.0) % Baso % (Auto) (0.0-2.0) % Neut # (Auto) (1.40-7.00) K/uL Lymph # (Auto) (0.50-3.50) K/uL Donley # (Auto) (0.00-1.00) K/uL Eos # (Auto) (0.00-0.50) K/uL Baso # (Auto) (0.00-0.20) K/uL D-Dimer, Quantitative 1710 H (0-400) ng/mL Sodium 137 (136-145) mmol/L Potassium 4.1 (3.5-5.1) mmol/L Chloride 99 (98-107) mmol/L Carbon Dioxide 27.5 (21.0-32.0) mmol/L Anion Gap 10.5 (7-15) meq/L BUN 14 (7-18) mg/dL Creatinine 0.98 (0.51-1.17) mg/dL Est Cr Clr Drug Dosing TNP Estimated GFR (MDRD) > 60 mL/min Glucose 139 H (70-99) mg/dL Calcium 8.4 L (8.5-10.1) mg/dL Magnesium 2.4 (1.8-2.4) mg/dL Total Bilirubin 0.5 (0.2-1.0) mg/dL Direct Bilirubin (0.0-0.2) mg/dL AST 57 H (15-37) U/L ALT 64 (12-78) U/L Alkaline Phosphatase 72 (46-116) IU/L Troponin I High Sens 5 (<=76) ng/L C-Reactive Protein 23.2 H (<=0.9) mg/dL Total Protein 6.9 (6.4-8.2) g/dL Albumin 3.3 L (3.4-5.0) g/dL Specimen Type Urine Color Urine Appearance Urine pH (5.0-9.0) Ur Specific Cutler (1.005-1.030) Urine Protein (NEGATIVE) mg/dL Urine Glucose (UA) (NEGATIVE) mg/dL Urine Ketones (NEGATIVE) mg/dL Urine Occult Blood (NEGATIVE) Urine Nitrite (NEGATIVE) Urine Bilirubin (NEGATIVE) Urine Urobilinogen (0.2-1.0) E.U./dL Ur Leukocyte Esterase (NEGATIVE) SARS-CoV-2 Ag (Rapid) (NEGATIVE) 04/10/21 04/10/21 04/10/21 Range/Units 07:35 07:35 07:35 WBC 6.3 (4.0-10.2) K/uL RBC 4.69 (4.33-5.41) M/uL Hgb 14.5 (13.1-16.8) g/dL Hct 43.0 (39.0-49.0) % MCV 91.7 (84.0-98.0) fL MCH 30.9 (28.2-33.3) pg MCHC 33.7 (31.7-36.0) g/dL RDW 13.0 (11.2-14.1) % Plt Count 127 L (150-350) K/uL Neut % (Auto) 88.0 H (45.0-80.0) % Lymph % (Auto) 8.2 L (10.0-50.0) % Donley % (Auto) 3.8 (2.0-14.0) % Eos % (Auto) 0.0 (0.0-5.0) % Baso % (Auto) 0.0 (0.0-2.0) % Neut # (Auto) 5.58 (1.40-7.00) K/uL Lymph # (Auto) 0.52 (0.50-3.50) K/uL Donley # (Auto) 0.24 (0.00-1.00) K/uL Eos # (Auto) 0.00 (0.00-0.50) K/uL Baso # (Auto) 0.00 (0.00-0.20) K/uL D-Dimer, Quantitative (0-400) ng/mL Sodium 140 (136-145) mmol/L Potassium 4.7 (3.5-5.1) mmol/L Chloride 103 (98-107) mmol/L Carbon Dioxide 27.7 (21.0-32.0) mmol/L Anion Gap 9.3 (7-15) meq/L BUN 11 (7-18) mg/dL Creatinine 0.93 (0.51-1.17) mg/dL Est Cr Clr Drug Dosing 92.67 Estimated GFR (MDRD) > 60 mL/min Glucose 158 H (70-99) mg/dL Calcium 8.6 (8.5-10.1) mg/dL Magnesium (1.8-2.4) mg/dL Total Bilirubin 0.4 (0.2-1.0) mg/dL Direct Bilirubin 0.1 (0.0-0.2) mg/dL AST 50 H (15-37) U/L ALT 60 (12-78) U/L Alkaline Phosphatase 71 (46-116) IU/L Troponin I High Sens 6 (<=76) ng/L C-Reactive Protein (<=0.9) mg/dL Total Protein 7.0 (6.4-8.2) g/dL Albumin 3.0 L (3.4-5.0) g/dL Specimen Type Urine Color Urine Appearance Urine pH (5.0-9.0) Ur Specific Cutler (1.005-1.030) Urine Protein (NEGATIVE) mg/dL Urine Glucose (UA) (NEGATIVE) mg/dL Urine Ketones (NEGATIVE) mg/dL Urine Occult Blood (NEGATIVE) Urine Nitrite (NEGATIVE) Urine Bilirubin (NEGATIVE) Urine Urobilinogen (0.2-1.0) E.U./dL Ur Leukocyte Esterase (NEGATIVE) SARS-CoV-2 Ag (Rapid) (NEGATIVE) Med Orders - Current: Current Medications Acetaminophen (Acetaminophen 325 Mg Tab) 650 mg PO Q4H PRN PRN Reason: Fever Greater Than 101 Hydrocodone Bitart/Acetaminophen (Acetaminophen/Hydrocodone 325-5 Mg Tab) 1 tab PO Q4H PRN PRN Reason: Pain (moderate 4-6) Albuterol (Albuterol 0.083% 2.5 Mg/3 Ml Neb Soln) 2.5 mg NEB Q2H PRN PRN Reason: Shortness Of Breath/wheezing Last Admin: 04/10/21 00:34 Dose: 2.5 mg Documented by: Albuterol/Ipratropium (Albuterol/Ipratropium 3.0-0.5 Mg/3 Ml Neb Soln) 3 ml NEB BID [facility] Last Admin: 04/10/21 08:01 Dose: 3 ml Documented by: Ascorbic Acid (Ascorbic Acid 500 Mg Tab) 500 mg PO BID [facility] Last Admin: 04/10/21 08:03 Dose: 500 mg Documented by: Atorvastatin Calcium (Atorvastatin 10 Mg Tab) 10 mg PO BEDTIME [facility] Benzonatate (Benzonatate 100 Mg Cap) 200 mg PO TID [facility] Last Admin: 04/10/21 08:03 Dose: 200 mg Documented by: Bisacodyl (Bisacodyl 5 Mg Tab) 5 mg PO DAILY PRN PRN Reason: Constipation Cholecalciferol (Cholecalciferol (Vitamin D3) 5,000 Unit Tab) 5,000 unit PO DAILY [facility] Last Admin: 04/10/21 08:03 Dose: 5,000 unit Documented by: Dexamethasone (Dexamethasone 2 Mg Tab) 6 mg PO DAILY [facility] Stop: 04/19/21 08:01 Last Admin: 04/10/21 08:02 Dose: 6 mg Documented by: Enoxaparin Sodium (Enoxaparin 40 Mg/0.4 Ml Syringe) 40 mg SUBCUT DAILY [facility] Last Admin: 04/10/21 08:01 Dose: 40 mg Documented by: Sodium Chloride (Normal Saline) 1,000 mls @ 999 mls/hr IV ASDIRECTED [facility] Last Admin: 04/09/21 20:50 Dose: 999 mls/hr Documented by: Sodium Chloride (Normal Saline) 1,000 mls @ 999 mls/hr IV ASDIRECTED [facility] Last Admin: 04/09/21 21:50 Dose: 999 mls/hr Documented by: Remdesivir 100 mg/ Sodium (Chloride) 100 mls @ 100 mls/hr IV Q24H [facility] Stop: 04/13/21 21:59 Ibuprofen (Ibuprofen 600 Mg Tab) 600 mg PO Q6H PRN PRN Reason: Pain (mild 1-3) Melatonin (Melatonin 3 Mg Tab) 6 mg PO BEDTIME PRN PRN Reason: Insomnia Metoprolol Succinate (Metoprolol Succinate 50 Mg Tab.Er) 200 mg PO DAILY [facility] Last Admin: 04/10/21 08:03 Dose: 200 mg Documented by: Ondansetron HCl (Ondansetron 4 Mg Tab.Dis) 4 mg PO Q4H PRN PRN Reason: Nausea/Vomiting Ondansetron HCl (Ondansetron 4 Mg/2 Ml Sdv) 4 mg IVPUSH Q4H PRN PRN Reason: Nausea/Vomiting Sodium Chloride (Sodium Chloride 0.9% 10 Ml Syringe) 10 ml FLUSH ASDIRECTED PRN PRN Reason: Keep Vein Open Last Admin: 04/10/21 00:35 Dose: 10 ml Documented by: Zinc Gluconate (Zinc (Zinc Gluconate) 50 Mg Tab) 50 mg PO DAILY [facility] Last Admin: 04/10/21 08:03 Dose: 50 mg Documented by: Discontinued Medications Dexamethasone (Dexamethasone 2 Mg Tab) 6 mg PO ONETIME ONE Stop: 04/09/21 21:49 Last Admin: 04/09/21 21:57 Dose: 6 mg Documented by: Remdesivir 200 mg/ Sodium (Chloride) 250 mls @ 250 mls/hr IV ONETIME ONE Stop: 04/09/21 22:48 Last Admin: 04/09/21 23:14 Dose: 250 mls/hr Documented by: Remdesivir 100 mg/ Sodium (Chloride) 100 mls @ 100 mls/hr IV Q24H [facility] Stop: 04/13/21 09:59 Iopamidol (Iopamidol 755 Mg/Ml 100 Ml Bottle) 100 ml IVPUSH ONETIME ONE Stop: 04/09/21 21:53 Last Admin: 04/09/21 22:42 Dose: 100 ml Documented by: Non-Formulary Medication (Metoprolol Succinate [Toprol Xl]) 200 mg PO DAILY MAIXNE - Exam Quality Assessment: Supplemental Oxygen (3.5 lpm nc) General: Alert, Oriented, Cooperative HEENT: Pupils Equal, Pupils Reactive Neck: Trachea Midline, No JVD Lungs: Normal Respiratory Effort, Decreased Breath Sounds (bases, but improved inspirations). No: Crackles, Rales Cardiovascular: Regular Rate, Regular Rhythm, No Murmurs GI/Abdominal Exam: Normal Bowel Sounds, Soft, Non-Tender, No Organomegaly Extremities: Normal Inspection, Normal Range of Motion, Non-Tender, No Pedal Edema, Normal Capillary Refill Peripheral Pulses: 3+: Posterior Tibial (L), Posterior Tibial (R), Dorsalis Pedis (L), Dorsalis Pedis (R) Skin: Warm Neurological: No New Focal Deficit Psy/Mental Status: Alert, Normal Affect, Normal Mood - Patient Data Lab Results Last 24 hrs: Laboratory Results - last 24 hr 04/09/21 04/09/21 04/09/21 Range/Units 20:25 20:39 20:45 WBC 6.2 (4.0-10.2) K/uL RBC 4.68 (4.33-5.41) M/uL Hgb 14.3 D (13.1-16.8) g/dL Hct 42.4 (39.0-49.0) % MCV 90.6 (84.0-98.0) fL MCH 30.6 (28.2-33.3) pg MCHC 33.7 (31.7-36.0) g/dL RDW 12.8 (11.2-14.1) % Plt Count 105 L D (150-350) K/uL Neut % (Auto) 84.2 H (45.0-80.0) % Lymph % (Auto) 11.6 (10.0-50.0) % Donley % (Auto) 4.2 (2.0-14.0) % Eos % (Auto) 0.0 (0.0-5.0) % Baso % (Auto) 0.0 (0.0-2.0) % Neut # (Auto) 5.22 (1.40-7.00) K/uL Lymph # (Auto) 0.72 (0.50-3.50) K/uL Donley # (Auto) 0.26 (0.00-1.00) K/uL Eos # (Auto) 0.00 (0.00-0.50) K/uL Baso # (Auto) 0.00 (0.00-0.20) K/uL D-Dimer, Quantitative (0-400) ng/mL Sodium (136-145) mmol/L Potassium (3.5-5.1) mmol/L Chloride (98-107) mmol/L Carbon Dioxide (21.0-32.0) mmol/L Anion Gap (7-15) meq/L BUN (7-18) mg/dL Creatinine (0.51-1.17) mg/dL Est Cr Clr Drug Dosing Estimated GFR (MDRD) mL/min Glucose (70-99) mg/dL Calcium (8.5-10.1) mg/dL Magnesium (1.8-2.4) mg/dL Total Bilirubin (0.2-1.0) mg/dL Direct Bilirubin (0.0-0.2) mg/dL AST (15-37) U/L ALT (12-78) U/L Alkaline Phosphatase (46-116) IU/L Troponin I High Sens (<=76) ng/L C-Reactive Protein (<=0.9) mg/dL Total Protein (6.4-8.2) g/dL Albumin (3.4-5.0) g/dL Specimen Type Urincc Urine Color Yellow Urine Appearance Clear Urine pH 7.0 (5.0-9.0) Ur Specific Cutler 1.010 (1.005-1.030) Urine Protein Negative (NEGATIVE) mg/dL Urine Glucose (UA) Negative (NEGATIVE) mg/dL Urine Ketones Negative (NEGATIVE) mg/dL Urine Occult Blood Negative (NEGATIVE) Urine Nitrite Negative (NEGATIVE) Urine Bilirubin Negative (NEGATIVE) Urine Urobilinogen 1.0 (0.2-1.0) E.U./dL Ur Leukocyte Esterase Negative (NEGATIVE) SARS-CoV-2 Ag (Rapid) Positive A (NEGATIVE) 04/09/21 04/09/21 04/09/21 Range/Units 20:45 20:45 20:45 WBC (4.0-10.2) K/uL RBC (4.33-5.41) M/uL Hgb (13.1-16.8) g/dL Hct (39.0-49.0) % MCV (84.0-98.0) fL MCH (28.2-33.3) pg MCHC (31.7-36.0) g/dL RDW (11.2-14.1) % Plt Count (150-350) K/uL Neut % (Auto) (45.0-80.0) % Lymph % (Auto) (10.0-50.0) % Donley % (Auto) (2.0-14.0) % Eos % (Auto) (0.0-5.0) % Baso % (Auto) (0.0-2.0) % Neut # (Auto) (1.40-7.00) K/uL Lymph # (Auto) (0.50-3.50) K/uL Donley # (Auto) (0.00-1.00) K/uL Eos # (Auto) (0.00-0.50) K/uL Baso # (Auto) (0.00-0.20) K/uL D-Dimer, Quantitative 1710 H (0-400) ng/mL Sodium 137 (136-145) mmol/L Potassium 4.1 (3.5-5.1) mmol/L Chloride 99 (98-107) mmol/L Carbon Dioxide 27.5 (21.0-32.0) mmol/L Anion Gap 10.5 (7-15) meq/L BUN 14 (7-18) mg/dL Creatinine 0.98 (0.51-1.17) mg/dL Est Cr Clr Drug Dosing TNP Estimated GFR (MDRD) > 60 mL/min Glucose 139 H (70-99) mg/dL Calcium 8.4 L (8.5-10.1) mg/dL Magnesium 2.4 (1.8-2.4) mg/dL Total Bilirubin 0.5 (0.2-1.0) mg/dL Direct Bilirubin (0.0-0.2) mg/dL AST 57 H (15-37) U/L ALT 64 (12-78) U/L Alkaline Phosphatase 72 (46-116) IU/L Troponin I High Sens 5 (<=76) ng/L C-Reactive Protein 23.2 H (<=0.9) mg/dL Total Protein 6.9 (6.4-8.2) g/dL Albumin 3.3 L (3.4-5.0) g/dL Specimen Type Urine Color Urine Appearance Urine pH (5.0-9.0) Ur Specific Cutler (1.005-1.030) Urine Protein (NEGATIVE) mg/dL Urine Glucose (UA) (NEGATIVE) mg/dL Urine Ketones (NEGATIVE) mg/dL Urine Occult Blood (NEGATIVE) Urine Nitrite (NEGATIVE) Urine Bilirubin (NEGATIVE) Urine Urobilinogen (0.2-1.0) E.U./dL Ur Leukocyte Esterase (NEGATIVE) SARS-CoV-2 Ag (Rapid) (NEGATIVE) 04/10/21 04/10/21 04/10/21 Range/Units 07:35 07:35 07:35 WBC 6.3 (4.0-10.2) K/uL RBC 4.69 (4.33-5.41) M/uL Hgb 14.5 (13.1-16.8) g/dL Hct 43.0 (39.0-49.0) % MCV 91.7 (84.0-98.0) fL MCH 30.9 (28.2-33.3) pg MCHC 33.7 (31.7-36.0) g/dL RDW 13.0 (11.2-14.1) % Plt Count 127 L (150-350) K/uL Neut % (Auto) 88.0 H (45.0-80.0) % Lymph % (Auto) 8.2 L (10.0-50.0) % Donley % (Auto) 3.8 (2.0-14.0) % Eos % (Auto) 0.0 (0.0-5.0) % Baso % (Auto) 0.0 (0.0-2.0) % Neut # (Auto) 5.58 (1.40-7.00) K/uL Lymph # (Auto) 0.52 (0.50-3.50) K/uL Donley # (Auto) 0.24 (0.00-1.00) K/uL Eos # (Auto) 0.00 (0.00-0.50) K/uL Baso # (Auto) 0.00 (0.00-0.20) K/uL D-Dimer, Quantitative (0-400) ng/mL Sodium 140 (136-145) mmol/L Potassium 4.7 (3.5-5.1) mmol/L Chloride 103 (98-107) mmol/L Carbon Dioxide 27.7 (21.0-32.0) mmol/L Anion Gap 9.3 (7-15) meq/L BUN 11 (7-18) mg/dL Creatinine 0.93 (0.51-1.17) mg/dL Est Cr Clr Drug Dosing 92.67 Estimated GFR (MDRD) > 60 mL/min Glucose 158 H (70-99) mg/dL Calcium 8.6 (8.5-10.1) mg/dL Magnesium (1.8-2.4) mg/dL Total Bilirubin 0.4 (0.2-1.0) mg/dL Direct Bilirubin 0.1 (0.0-0.2) mg/dL AST 50 H (15-37) U/L ALT 60 (12-78) U/L Alkaline Phosphatase 71 (46-116) IU/L Troponin I High Sens 6 (<=76) ng/L C-Reactive Protein (<=0.9) mg/dL Total Protein 7.0 (6.4-8.2) g/dL Albumin 3.0 L (3.4-5.0) g/dL Specimen Type Urine Color Urine Appearance Urine pH (5.0-9.0) Ur Specific Cutler (1.005-1.030) Urine Protein (NEGATIVE) mg/dL Urine Glucose (UA) (NEGATIVE) mg/dL Urine Ketones (NEGATIVE) mg/dL Urine Occult Blood (NEGATIVE) Urine Nitrite (NEGATIVE) Urine Bilirubin (NEGATIVE) Urine Urobilinogen (0.2-1.0) E.U./dL Ur Leukocyte Esterase (NEGATIVE) SARS-CoV-2 Ag (Rapid) (NEGATIVE) Result Diagrams: 04/10/21 07:35 04/10/21 07:35 Sepsis Event Note - Evaluation Sepsis Screening Result: No Definite Risk - Focused Exam Vital Signs: Vital Signs Temp Pulse Pulse Resp BP BP Pulse Ox 04/10/21 08:03 70 134/86 11/28/21 08:00 36.4 C 70 20 134/86 96 04/10/21 06:04 20 94 L 04/10/21 02:00 94 L 04/09/21 22:49 36.9 C 81 20 152/86 H 91 L - Problem List & Annotations (1) Hypoxia SNOMED Code(s): 841304729 Code(s): R09.02 - HYPOXEMIA Status: Acute Priority: High Current Visit: No Annotation/Comment:: doing well on 3.5 lpm on NC. Doing incentive spirometery. increased ability for deep breathing. had one dose of remdesivir, decadron, continue course (2) Thrombocytopenia associated with COVID-19 SNOMED Code(s): 290268321 Code(s): U07.1 - COVID-19; D69.59 - OTHER SECONDARY THROMBOCYTOPENIA Sta tus: Acute Priority: Medium Current Visit: No Annotation/Comment:: Improved slight, associated withacute COVID 19. will continue to monitor. no bleeding. (3) Acute respiratory disease due to COVID-19 virus SNOMED Code(s): 692954751, 629467440 Code(s): U07.1 - COVID-19; J06.9 - ACUTE UPPER RESPIRATORY INFECTION, UNSPECIFIED Status: Acute Priority: High Current Visit: No Annotation/Comment:: see above hypoxemia , continue covid 19 treatments. - Problem List Review Problem List Initiated/Reviewed/Updated: Yes - My Orders Last 24 Hours: My Active Orders 04/09/21 20:25 Peripheral IV Care [RC] . DIRECTED Sodium Chloride 0.9% [Saline Flush] 10 ml FLUSH ASDIRECTED PRN Peripheral IV Insertion Adult [OM.PC] Routine 04/09/21 20:30 Sodium Chloride 0.9% [Normal Saline] 1,000 ml IV ASDIRECTED 04/09/21 21:30 Sodium Chloride 0.9% [Normal Saline] 1,000 ml IV ASDIRECTED 04/09/21 21:35 PE Chest [Ang Chest] [CT] Stat 04/09/21 21:52 Admission Status [Patient Status] [ADT] Routine 04/09/21 22:04 Ambulate [RC] ASDIRECTED Height and Weight [RC] DAILY May Shower [RC] ASDIRECTED RT Incentive Spirometry [RC] Q1HWA Up ad Emily [RC] ASDIRECTED Vital Signs [RC] 00,08,16 Acetaminophen [TylenoL] 650 mg PO Q4H PRN Acetaminophen/HYDROcodone [[place] 325-5 MG] 1 tab PO Q4H PRN Albuterol [Proventil Neb Soln] 2.5 mg NEB Q2H PRN Ibuprofen [Motrin] 600 mg PO Q6H PRN Melatonin 6 mg PO BEDTIME PRN Ondansetron [Zofran ODT] 4 mg PO Q4H PRN Ondansetron [Zofran] 4 mg IVPUSH Q4H PRN bisacodyL [Dulcolax] 5 mg PO DAILY PRN Resuscitation Status Routine 04/09/21 22:05 Oxygen Therapy [RC] 2300 Positioning, Patient [RC] ASDIRECTED VTE/DVT Education [RC] PER UNIT ROUTINE Isolation [COMM] Stat 04/09/21 22:08 Intake and Output [RC] 06,18 Pulse Oximetry [RC] 04/09/21 22:09 RT Aerosol Therapy [RC] 04/10/21 Breakfast Regular Diet [DIET] 04/10/21 08:00 Albuterol/Ipratropium [DuoNeb 3.0-0.5 MG/3 ML] 3 ml NEB BID Ascorbic Acid [Vitamin C] 500 mg PO BID Benzonatate [Tessalon Perles] 200 mg PO TID Cholecalciferol (Vitamin D3) [Vitamin D3] 5,000 unit PO DAILY Enoxaparin [Lovenox] 40 mg SUBCUT DAILY Metoprolol Succinate [Toprol XL] 200 mg PO DAILY Zinc Gluconate [Zinc] 50 mg PO DAILY dexAMETHasone 6 mg PO DAILY 04/10/21 20:00 atorvaSTATin [Lipitor] 10 mg PO BEDTIME 04/10/21 21:00 Remdesivir 100 mg Sodium Chloride 0.9% [Normal Saline] 100 ml IV Q24H 04/11/21 05:00 BILIRUBIN DIRECT [CHEM] DAILY CBC WITH AUTO DIFF [HEME] DAILY COMPREHENSIVE METABOLIC PN,CMP [CHEM] DAILY 04/12/21 05:00 BILIRUBIN DIRECT [CHEM] DAILY CBC WITH AUTO DIFF [HEME] DAILY COMPREHENSIVE METABOLIC PN,CMP [CHEM] DAILY 04/13/21 05:00 BILIRUBIN DIRECT [CHEM] DAILY CBC WITH AUTO DIFF [HEME] DAILY COMPREHENSIVE METABOLIC PN,CMP [CHEM] DAILY - Assessment Assessment:: Acute respiratory failure from covid 19 getting remdesivir and decadron on supplemental oxygen thrombocytopenia due to covid 19 - Plan Plan:: Continue remdesivir, and decadron with supplemental oxygen. Getting vitamin c, d and zinc. continue current medications for chronic hypertension and hyperlipidemia as they are stable. Anticipate discharge after last dose of remdesivir. May need supplemental oxygen. Continue prone position, continue lovenox prophylaxis for dvt
[2021-04-10] MEDS: atorvaSTATin 10 MG Tab PO SCH (21:16)
[2021-04-10] MEDS: REMDESIVIR 100 MG in Sodium Chloride 0.9% 100 ML IV SCH (21:16)
[2021-04-10] MEDS: Sodium Chloride 0.9% 10 ML Syringe FLUSH SCH (21:19)
[2021-04-11] MEDS: Albuterol 0.083% 2.5 MG/3 ML Neb Soln NEB PRN (04:39)
[2021-04-11] MEDS: Enoxaparin 40 MG/0.4 ML Syringe SUBCUT SCH (07:28)
[2021-04-11] MEDS: Benzonatate 100 MG Cap PO SCH ×3 (07:28→17:20)
[2021-04-11] MEDS: Zinc (Zinc Gluconate) 50 MG Tab PO SCH (07:29)
[2021-04-11] MEDS: Cholecalciferol (Vitamin D3) 5,000 UNIT Tab PO SCH (07:29)
[2021-04-11] MEDS: Dexamethasone 2 MG Tab PO SCH (07:29)
[2021-04-11] MEDS: Metoprolol Succinate 50 MG Tab.ER PO SCH (07:30)
[2021-04-11] MEDS: Ascorbic Acid 500 MG Tab PO SCH ×2 (07:30→17:20)
[2021-04-11] MEDS: Albuterol/Ipratropium 3.0-0.5 MG/3 ML Neb Soln NEB SCH ×2 (07:31→17:20)
--- NOTE | 2021-04-11 08:10 | PCM.PN ---
- General Info Date of Service: 04/11/21 Admission Dx/Problem (Free Text): Admission Diagnosis/Problem Admission Diagnosis/Problem Acute respiratory failure with hypoxemia due to COVID19 Subjective Update: Patient is doing better mentation thomas. Thinking clear, doing daily tasks like ambulating the room, doing some squats in the room and doing his own nebulizer. He does well when he is prone and likes to sleep this way. Sats are usually 94% on 3-4 liters when prone. When he is upright on laying supine, his sats are 89- 90%. Did have an episode of losing his oxygen during sleep last night, sats dropped significantly and he developed some right chest pain. This resolved with replacement of the oxygen and a nebulizer. This morning he is feeling ok, sats are a little lower, was sweaty once last night when he lost his oxygen but otherwise feeling ok Functional Status: Reports: Pain Controlled, Tolerating Diet, Ambulating, Incentive Spirometry - Review of Systems General: Reports: Weakness. Denies: Fever HEENT: Reports: No Symptoms. Denies: Sinus Congestion, Rhinitis Pulmonary: Reports: Shortness of Breath, Cough (no new symptoms) Cardiovascular: Reports: Chest Pain (rigthsided last night briefly) Genitourinary: Reports: No Symptoms Musculoskeletal: Reports: No Symptoms Skin: Reports: No Symptoms Neurological: Reports: No Symptoms Psychiatric: Reports: No Symptoms - Patient Data Vitals - Most Recent: Last Vital Signs Temp 37.2 C 04/11/21 07:25 Pulse 65 04/11/21 07:30 Resp 18 04/11/21 07:25 BP 134/82 04/11/21 07:30 Pulse Ox 93 L 04/11/21 07:25 Weight - Most Recent: 113.398 kg I&O - Last 24 Hours: Intake & Output 04/10/21 04/11/21 04/11/21 22:59 06:59 14:59 Intake Total 800 500 Balance 800 500 Imaging Impressions - Last 24 Hours: chest x-ray portable today, preliminary reading Lab Results Last 24 Hours: Laboratory Results - last 24 hr 04/09/21 04/10/21 04/10/21 Range/Units 20:39 07:35 07:35 WBC (4.0-10.2) K/uL RBC (4.33-5.41) M/uL Hgb (13.1-16.8) g/dL Hct (39.0-49.0) % MCV (84.0-98.0) fL MCH (28.2-33.3) pg MCHC (31.7-36.0) g/dL RDW (11.2-14.1) % Plt Count (150-350) K/uL Neut % (Auto) (45.0-80.0) % Lymph % (Auto) (10.0-50.0) % Bland % (Auto) (2.0-14.0) % Eos % (Auto) (0.0-5.0) % Baso % (Auto) (0.0-2.0) % Neut # (Auto) (1.40-7.00) K/uL Lymph # (Auto) (0.50-3.50) K/uL Bland # (Auto) (0.00-1.00) K/uL Eos # (Auto) (0.00-0.50) K/uL Baso # (Auto) (0.00-0.20) K/uL Sodium 140 (136-145) mmol/L Potassium 4.7 (3.5-5.1) mmol/L Chloride 103 (98-107) mmol/L Carbon Dioxide 27.7 (21.0-32.0) mmol/L Anion Gap 9.3 (7-15) meq/L BUN 11 (7-18) mg/dL Creatinine 0.93 (0.51-1.17) mg/dL Est Cr Clr Drug Dosing 92.67 mL/min Estimated GFR (MDRD) > 60 mL/min Glucose 158 H (70-99) mg/dL Calcium 8.6 (8.5-10.1) mg/dL Total Bilirubin 0.4 (0.2-1.0) mg/dL Direct Bilirubin 0.1 (0.0-0.2) mg/dL AST 50 H (15-37) U/L ALT 60 (12-78) U/L Alkaline Phosphatase 71 (46-116) IU/L Troponin I High Sens 6 (<=76) ng/L Total Protein 7.0 (6.4-8.2) g/dL Albumin 3.0 L (3.4-5.0) g/dL Specimen Type Urincc Urine Color Yellow Urine Appearance Clear Urine pH 7.0 (5.0-9.0) Ur Specific [place] 1.010 (1.005-1.030) Urine Protein Negative (NEGATIVE) mg/dL Urine Glucose (UA) Negative (NEGATIVE) mg/dL Urine Ketones Negative (NEGATIVE) mg/dL Urine Occult Blood Negative (NEGATIVE) Urine Nitrite Negative (NEGATIVE) Urine Bilirubin Negative (NEGATIVE) Urine Urobilinogen 1.0 (0.2-1.0) E.U./dL Ur Leukocyte Esterase Negative (NEGATIVE) 04/11/21 Range/Units 07:05 WBC 10.3 H (4.0-10.2) K/uL RBC 4.55 (4.33-5.41) M/uL Hgb 13.9 (13.1-16.8) g/dL Hct 41.7 (39.0-49.0) % MCV 91.6 (84.0-98.0) fL MCH 30.5 (28.2-33.3) pg MCHC 33.3 (31.7-36.0) g/dL RDW 12.9 (11.2-14.1) % Plt Count 166 (150-350) K/uL Neut % (Auto) 86.1 H (45.0-80.0) % Lymph % (Auto) 8.1 L (10.0-50.0) % Bland % (Auto) 5.7 (2.0-14.0) % Eos % (Auto) 0.0 (0.0-5.0) % Baso % (Auto) 0.1 (0.0-2.0) % Neut # (Auto) 8.88 H (1.40-7.00) K/uL Lymph # (Auto) 0.83 (0.50-3.50) K/uL Bland # (Auto) 0.59 (0.00-1.00) K/uL Eos # (Auto) 0.00 (0.00-0.50) K/uL Baso # (Auto) 0.01 (0.00-0.20) K/uL Sodium (136-145) mmol/L Potassium (3.5-5.1) mmol/L Chloride (98-107) mmol/L Carbon Dioxide (21.0-32.0) mmol/L Anion Gap (7-15) meq/L BUN (7-18) mg/dL Creatinine (0.51-1.17) mg/dL Est Cr Clr Drug Dosing mL/min Estimated GFR (MDRD) mL/min Glucose (70-99) mg/dL Calcium (8.5-10.1) mg/dL Total Bilirubin (0.2-1.0) mg/dL Direct Bilirubin (0.0-0.2) mg/dL AST (15-37) U/L ALT (12-78) U/L Alkaline Phosphatase (46-116) IU/L Troponin I High Sens (<=76) ng/L Total Protein (6.4-8.2) g/dL Albumin (3.4-5.0) g/dL Specimen Type Urine Color Urine Appearance Urine pH (5.0-9.0) Ur Specific [place] (1.005-1.030) Urine Protein (NEGATIVE) mg/dL Urine Glucose (UA) (NEGATIVE) mg/dL Urine Ketones (NEGATIVE) mg/dL Urine Occult Blood (NEGATIVE) Urine Nitrite (NEGATIVE) Urine Bilirubin (NEGATIVE) Urine Urobilinogen (0.2-1.0) E.U./dL Ur Leukocyte Esterase (NEGATIVE) Med Orders - Current: Current Medications Acetaminophen (Acetaminophen 325 Mg Tab) 650 mg PO Q4H PRN PRN Reason: Fever Greater Than 101 Hydrocodone Bitart/Acetaminophen (Acetaminophen/Hydrocodone 325-5 Mg Tab) 1 tab PO Q4H PRN PRN Reason: Pain (moderate 4-6) Albuterol (Albuterol 0.083% 2.5 Mg/3 Ml Neb Soln) 2.5 mg NEB Q2H PRN PRN Reason: Shortness Of Breath/wheezing Last Admin: 04/11/21 04:39 Dose: 2.5 mg Documented by: Albuterol/Ipratropium (Albuterol/Ipratropium 3.0-0.5 Mg/3 Ml Neb Soln) 3 ml NEB BID [facility] Last Admin: 04/11/21 07:31 Dose: 3 ml Documented by: Ascorbic Acid (Ascorbic Acid 500 Mg Tab) 500 mg PO BID [facility] Last Admin: 04/11/21 07:30 Dose: 500 mg Documented by: Atorvastatin Calcium (Atorvastatin 10 Mg Tab) 10 mg PO BEDTIME [facility] Last Admin: 04/10/21 21:16 Dose: 10 mg Documented by: Benzonatate (Benzonatate 100 Mg Cap) 200 mg PO TID [facility] Last Admin: 04/11/21 07:28 Dose: 200 mg Documented by: Bisacodyl (Bisacodyl 5 Mg Tab) 5 mg PO DAILY PRN PRN Reason: Constipation Cholecalciferol (Cholecalciferol (Vitamin D3) 5,000 Unit Tab) 5,000 unit PO DAILY [facility] Last Admin: 04/11/21 07:29 Dose: 5,000 unit Documented by: Dexamethasone (Dexamethasone 2 Mg Tab) 6 mg PO DAILY [facility] Stop: 04/19/21 08:01 Last Admin: 04/11/21 07:29 Dose: 6 mg Documented by: Enoxaparin Sodium (Enoxaparin 40 Mg/0.4 Ml Syringe) 40 mg SUBCUT DAILY [facility] Last Admin: 04/11/21 07:28 Dose: 40 mg Documented by: Sodium Chloride (Normal Saline) 1,000 mls @ 999 mls/hr IV ASDIRECTED [facility] Last Admin: 04/09/21 20:50 Dose: 999 mls/hr Documented by: Sodium Chloride (Normal Saline) 1,000 mls @ 999 mls/hr IV ASDIRECTED [facility] Last Admin: 04/09/21 21:50 Dose: 999 mls/hr Documented by: Remdesivir 100 mg/ Sodium (Chloride) 100 mls @ 100 mls/hr IV Q24H [facility] Stop: 04/13/21 21:59 Last Admin: 04/10/21 21:16 Dose: 100 mls/hr Documented by: Ibuprofen (Ibuprofen 600 Mg Tab) 600 mg PO Q6H PRN PRN Reason: Pain (mild 1-3) Melatonin (Melatonin 3 Mg Tab) 6 mg PO BEDTIME PRN PRN Reason: Insomnia Metoprolol Succinate (Metoprolol Succinate 50 Mg Tab.Er) 200 mg PO DAILY [facility] Last Admin: 04/11/21 07:30 Dose: 200 mg Documented by: Ondansetron HCl (Ondansetron 4 Mg Tab.Dis) 4 mg PO Q4H PRN PRN Reason: Nausea/Vomiting Ondansetron HCl (Ondansetron 4 Mg/2 Ml Sdv) 4 mg IVPUSH Q4H PRN PRN Reason: Nausea/Vomiting Sodium Chloride (Sodium Chloride 0.9% 10 Ml Syringe) 10 ml FLUSH ASDIRECTED PRN PRN Reason: Keep Vein Open Last Admin: 04/10/21 00:35 Dose: 10 ml Documented by: Sodium Chloride (Sodium Chloride 0.9% 10 Ml Syringe) 30 ml FLUSH DAILY@2200 [facility] Stop: 04/13/21 22:01 Last Admin: 04/10/21 21:19 Dose: 30 ml Documented by: Zinc Gluconate (Zinc (Zinc Gluconate) 50 Mg Tab) 50 mg PO DAILY [facility] Last Admin: 04/11/21 07:29 Dose: 50 mg Documented by: Discontinued Medications Dexamethasone (Dexamethasone 2 Mg Tab) 6 mg PO ONETIME ONE Stop: 04/09/21 21:49 Last Admin: 04/09/21 21:57 Dose: 6 mg Documented by: Remdesivir 200 mg/ Sodium (Chloride) 250 mls @ 250 mls/hr IV ONETIME ONE Stop: 04/09/21 22:48 Last Admin: 04/09/21 23:14 Dose: 250 mls/hr Documented by: Remdesivir 100 mg/ Sodium (Chloride) 100 mls @ 100 mls/hr IV Q24H [facility] Stop: 04/13/21 09:59 Iopamidol (Iopamidol 755 Mg/Ml 100 Ml Bottle) 100 ml IVPUSH ONETIME ONE Stop: 04/09/21 21:53 Last Admin: 04/09/21 22:42 Dose: 100 ml Documented by: Non-Formulary Medication (Metoprolol Succinate [Toprol Xl]) 200 mg PO DAILY [facility] - Exam Quality Assessment: Supplemental Oxygen (4lpm) General: Alert, Oriented, Cooperative HEENT: Pupils Equal Neck: Supple Lungs: Decreased Breath Sounds (bases, right greatly than left, no wheezes or crackles) Cardiovascular: Regular Rate, Regular Rhythm GI/Abdominal Exam: Normal Bowel Sounds, Soft Extremities: Normal Inspection, Normal Range of Motion, Non-Tender, No Pedal Edema Skin: Warm Neurological: No New Focal Deficit Psy/Mental Status: Alert, Normal Affect, Normal Mood - Patient Data Lab Results Last 24 hrs: Laboratory Results - last 24 hr 04/09/21 04/10/21 04/10/21 Range/Units 20:39 07:35 07:35 WBC (4.0-10.2) K/uL RBC (4.33-5.41) M/uL Hgb (13.1-16.8) g/dL Hct (39.0-49.0) % MCV (84.0-98.0) fL MCH (28.2-33.3) pg MCHC (31.7-36.0) g/dL RDW (11.2-14.1) % Plt Count (150-350) K/uL Neut % (Auto) (45.0-80.0) % Lymph % (Auto) (10.0-50.0) % Bland % (Auto) (2.0-14.0) % Eos % (Auto) (0.0-5.0) % Baso % (Auto) (0.0-2.0) % Neut # (Auto) (1.40-7.00) K/uL Lymph # (Auto) (0.50-3.50) K/uL Bland # (Auto) (0.00-1.00) K/uL Eos # (Auto) (0.00-0.50) K/uL Baso # (Auto) (0.00-0.20) K/uL Sodium 140 (136-145) mmol/L Potassium 4.7 (3.5-5.1) mmol/L Chloride 103 (98-107) mmol/L Carbon Dioxide 27.7 (21.0-32.0) mmol/L Anion Gap 9.3 (7-15) meq/L BUN 11 (7-18) mg/dL Creatinine 0.93 (0.51-1.17) mg/dL Est Cr Clr Drug Dosing 92.67 mL/min Estimated GFR (MDRD) > 60 mL/min Glucose 158 H (70-99) mg/dL Calcium 8.6 (8.5-10.1) mg/dL Total Bilirubin 0.4 (0.2-1.0) mg/dL Direct Bilirubin 0.1 (0.0-0.2) mg/dL AST 50 H (15-37) U/L ALT 60 (12-78) U/L Alkaline Phosphatase 71 (46-116) IU/L Troponin I High Sens 6 (<=76) ng/L Total Protein 7.0 (6.4-8.2) g/dL Albumin 3.0 L (3.4-5.0) g/dL Specimen Type Urincc Urine Color Yellow Urine Appearance Clear Urine pH 7.0 (5.0-9.0) Ur Specific [place] 1.010 (1.005-1.030) Urine Protein Negative (NEGATIVE) mg/dL Urine Glucose (UA) Negative (NEGATIVE) mg/dL Urine Ketones Negative (NEGATIVE) mg/dL Urine Occult Blood Negative (NEGATIVE) Urine Nitrite Negative (NEGATIVE) Urine Bilirubin Negative (NEGATIVE) Urine Urobilinogen 1.0 (0.2-1.0) E.U./dL Ur Leukocyte Esterase Negative (NEGATIVE) 04/11/21 Range/Units 07:05 WBC 10.3 H (4.0-10.2) K/uL RBC 4.55 (4.33-5.41) M/uL Hgb 13.9 (13.1-16.8) g/dL Hct 41.7 (39.0-49.0) % MCV 91.6 (84.0-98.0) fL MCH 30.5 (28.2-33.3) pg MCHC 33.3 (31.7-36.0) g/dL RDW 12.9 (11.2-14.1) % Plt Count 166 (150-350) K/uL Neut % (Auto) 86.1 H (45.0-80.0) % Lymph % (Auto) 8.1 L (10.0-50.0) % Bland % (Auto) 5.7 (2.0-14.0) % Eos % (Auto) 0.0 (0.0-5.0) % Baso % (Auto) 0.1 (0.0-2.0) % Neut # (Auto) 8.88 H (1.40-7.00) K/uL Lymph # (Auto) 0.83 (0.50-3.50) K/uL Bland # (Auto) 0.59 (0.00-1.00) K/uL Eos # (Auto) 0.00 (0.00-0.50) K/uL Baso # (Auto) 0.01 (0.00-0.20) K/uL Sodium (136-145) mmol/L Potassium (3.5-5.1) mmol/L Chloride (98-107) mmol/L Carbon Dioxide (21.0-32.0) mmol/L Anion Gap (7-15) meq/L BUN (7-18) mg/dL Creatinine (0.51-1.17) mg/dL Est Cr Clr Drug Dosing mL/min Estimated GFR (MDRD) mL/min Glucose (70-99) mg/dL Calcium (8.5-10.1) mg/dL Total Bilirubin (0.2-1.0) mg/dL Direct Bilirubin (0.0-0.2) mg/dL AST (15-37) U/L ALT (12-78) U/L Alkaline Phosphatase (46-116) IU/L Troponin I High Sens (<=76) ng/L Total Protein (6.4-8.2) g/dL Albumin (3.4-5.0) g/dL Specimen Type Urine Color Urine Appearance Urine pH (5.0-9.0) Ur Specific [place] (1.005-1.030) Urine Protein (NEGATIVE) mg/dL Urine Glucose (UA) (NEGATIVE) mg/dL Urine Ketones (NEGATIVE) mg/dL Urine Occult Blood (NEGATIVE) Urine Nitrite (NEGATIVE) Urine Bilirubin (NEGATIVE) Urine Urobilinogen (0.2-1.0) E.U./dL Ur Leukocyte Esterase (NEGATIVE) Result Diagrams: 04/11/21 07:05 04/10/21 07:35 Imaging Impressions Last 24 hrs: chest x-ray wtih hazy opacities diffusely throughout the lungs are probably witout significant change when compared to the 04/09/[address] see report. Sepsis Event Note - Evaluation Sepsis Screening Result: No Definite Risk - Focused Exam Vital Signs: Vital Signs Temp Pulse Pulse Resp BP BP Pulse Ox 04/11/21 07:30 65 134/82 04/11/21 07:25 37.2 C 65 18 134/82 93 L 04/10/21 21:11 36.9 C 67 14 120/76 92 L - Problem List & Annotations (1) Hypoxia SNOMED Code(s): 297462894 Code(s): R09.02 - HYPOXEMIA Status: Acute Priority: High Current Visit: No Annotation/Comment:: doing incentive spirometer, on 4 lpm today, gets winded with ambulation, sats better with proning to 94%, marginal at 89-90% otherwise. Continue with redmesivir, decadron. White count increased today, with increased need of oxygen and marginal turn on his sats, chest x-ray done portable, will cover with azithromycin. will increase O2 to 5 lpm and if this does not help, highflow will be initiated. doing well on 3.5 lpm on NC. Doing incentive spirometery. increased ability for deep breathing. had one dose of remdesivir, decadron, continue course (2) Thrombocytopenia associated with COVID-19 SNOMED Code(s): 091843461 Code(s): U07.1 - COVID-19; D69.59 - OTHER SECONDARY THROMBOCYTOPENIA Status: Acute Priority: Medium Current Visit: No Annotation/Comment:: 04/11/2021 improved, above 150 now, continue to monitor. (3) Acute respiratory disease due to COVID-19 virus SNOMED Code(s): 424578786, 817501115 Code(s): U07.1 - COVID-19; J06.9 - ACUTE UPPER RESPIRATORY INFECTION, UNSPECIFIED Status: Acute Priority: High Current Visit: No Annotation/Comment:: 04/11/2021 stable, slight increased need for oxygen, continue treatments Improved slight, associated withacute COVID 19. will continue to monitor. no bleeding see above hypoxemia , continue covid 19 treatments. - Problem List Review Problem List Initiated/Reviewed/Updated: Yes - My Orders Last 24 Hours: My Active Orders 04/10/21 Breakfast Regular Diet [DIET] 04/10/21 08:00 Albuterol/Ipratropium [DuoNeb 3.0-0.5 MG/3 ML] 3 ml NEB BID Ascorbic Acid [Vitamin C] 500 mg PO BID Benzonatate [Tessalon Perles] 200 mg PO TID Cholecalciferol (Vitamin D3) [Vitamin D3] 5,000 unit PO DAILY Enoxaparin [Lovenox] 40 mg SUBCUT DAILY Metoprolol Succinate [Toprol XL] 200 mg PO DAILY Zinc Gluconate [Zinc] 50 mg PO DAILY dexAMETHasone 6 mg PO DAILY 04/10/21 20:00 atorvaSTATin [Lipitor] 10 mg PO BEDTIME 04/10/21 21:00 Remdesivir 100 mg Sodium Chloride 0.9% [Normal Saline] 100 ml IV Q24H 04/10/21 22:00 Sodium Chloride 0.9% [Saline Flush] 30 ml FLUSH DAILY@2200 04/11/21 07:05 BILIRUBIN DIRECT [CHEM] DAILY COMPREHENSIVE METABOLIC PN,CMP [CHEM] DAILY 04/11/21 07:40 Chest 1V Frontal [CR] Stat 04/12/21 05:00 BILIRUBIN DIRECT [CHEM] DAILY CBC WITH AUTO DIFF [HEME] DAILY COMPREHENSIVE METABOLIC PN,CMP [CHEM] DAILY 04/13/21 05:00 BILIRUBIN DIRECT [CHEM] DAILY CBC WITH AUTO DIFF [HEME] DAILY COMPREHENSIVE METABOLIC PN,CMP [CHEM] DAILY - Assessment Assessment:: 04/11/2021 covid pneumonia with increasing white count, oxygen needs on Day 8 of symptoms. improved thrombocytopenia Acute respiratory failure from covid 19 getting remdesivir and decadron on supplemental oxygen thrombocytopenia due to covid 19 - Plan Plan:: 04/11/2021 increase oxygen or switch to high flow, add azithromycin, continue previous plan Continue remdesivir, and decadron with supplemental oxygen. Getting vitamin c, d and zinc. continue current medications for chronic hypertension and hype rlipidemia as they are stable. Anticipate discharge after last dose of remdesivir. May need supplemental oxygen. Continue prone position, continue lovenox prophylaxis for dvt
[2021-04-11] MEDS ORDERED: Azithromycin 250 MG Tab PO ONE (08:56)
[2021-04-11 09:02] LABS: ANION GAP 10.7 meq/L (7-15); CHLORIDE,CL 105 mmol/L (98-107); SODIUM,NA 141 mmol/L (136-145)
[2021-04-11] MEDS: REMDESIVIR 100 MG in Sodium Chloride 0.9% 100 ML IV SCH (21:28)
[2021-04-11] MEDS: atorvaSTATin 10 MG Tab PO SCH (21:28)
[2021-04-11] MEDS: Sodium Chloride 0.9% 10 ML Syringe FLUSH SCH (21:29)
[2021-04-12 07:44] LABS: ANION GAP 8.8 meq/L (7-15); CHLORIDE,CL 104 mmol/L (98-107); SODIUM,NA 139 mmol/L (136-145)
[2021-04-12] MEDS: Benzonatate 100 MG Cap PO SCH ×3 (08:08→17:41)
[2021-04-12] MEDS: Metoprolol Succinate 50 MG Tab.ER PO SCH (08:08)
[2021-04-12] MEDS: Cholecalciferol (Vitamin D3) 5,000 UNIT Tab PO SCH (08:08)
[2021-04-12] MEDS: Zinc (Zinc Gluconate) 50 MG Tab PO SCH (08:08)
[2021-04-12] MEDS: Albuterol/Ipratropium 3.0-0.5 MG/3 ML Neb Soln NEB SCH ×3 (08:08→17:41)
[2021-04-12] MEDS: Azithromycin 250 MG Tab PO SCH (08:08)
[2021-04-12] MEDS: Ascorbic Acid 500 MG Tab PO SCH ×2 (08:08→17:41)
[2021-04-12] MEDS: Dexamethasone 2 MG Tab PO SCH (08:08)
[2021-04-12] MEDS: Enoxaparin 40 MG/0.4 ML Syringe SUBCUT SCH (08:09)
[2021-04-12] MEDS: Sodium Chloride 0.9% 10 ML Syringe FLUSH PRN (08:10)
[2021-04-12] MEDS ORDERED: Sodium Chloride 0.65% Nasal Spray 45 ML Bottle NAS PRN (09:37)
--- NOTE | 2021-04-12 16:08 | PCM.PN ---
- General Info Date of Service: 04/12/21 Admission Dx/Problem (Free Text): Admission Diagnosis/Problem Admission Diagnosis/Problem Acute respiratory failure with hypoxemia due to COVID19 Subjective Update: Patient is doing better mentation thomas. Thinking clear, doing daily tasks like ambulating the room, doing some squats in the room and doing his own nebulizer. He does well when he is prone and likes to sleep this way. Sats are usually 90% on 3-4 liters when prone. When he is upright on laying supine, his sats are 89- 90%. [place] more breathless when up showering today. Sats with activity upper 80s Functional Status: Reports: Pain Controlled, Tolerating Diet, Ambulating, Urinating, Incentive Spirometry. Denies: New Symptoms Pain Score: 1 - Review of Systems General: Reports: Fatigue, Malaise, Appetite (good). Denies: Fever, Chills, Night Sweats HEENT: Reports: Sinus Congestion, Rhinitis Pulmonary: Reports: Shortness of Breath, Cough, Sputum. Denies: Pleuritic Chest Pain, Hemoptysis, Wheezing Cardiovascular: Reports: Other (central chest hurts when he coughs). Denies: Palpitations, Orthopnea, Edema, Lightheadedness Gastrointestinal: Reports: No Symptoms Genitourinary: Reports: No Symptoms Musculoskeletal: Reports: Other (mild aches) Skin: Reports: No Symptoms Neurological: Reports: No Symptoms Psychiatric: Reports: No Symptoms - Patient Data Vitals - Most Recent: Last Vital Signs Temp 36.8 C 04/12/21 14:00 Pulse 72 04/12/21 14:00 Resp 18 04/12/21 14:00 BP 128/78 04/12/21 14:00 Pulse Ox 88 L 04/12/21 14:00 Weight - Most Recent: 113.398 kg I&O - Last 24 Hours: Intake & Output 04/12/21 04/12/21 04/12/21 06:59 14:59 22:59 Intake Total 500 416 Balance 500 416 Lab Results Last 24 Hours: Laboratory Results - last 24 hr 04/12/21 04/12/21 Range/Units 07:08 07:08 WBC 11.7 H (4.0-10.2) K/uL RBC 4.76 (4.33-5.41) M/uL Hgb 14.5 (13.1-16.8) g/dL Hct 43.7 (39.0-49.0) % MCV 91.8 (84.0-98.0) fL MCH 30.5 (28.2-33.3) pg MCHC 33.2 (31.7-36.0) g/dL RDW 13.0 (11.2-14.1) % Plt Count 201 (150-350) K/uL Neut % (Auto) 84.2 H (45.0-80.0) % Lymph % (Auto) 8.3 L (10.0-50.0) % [place] % (Auto) 7.4 (2.0-14.0) % Eos % (Auto) 0.0 (0.0-5.0) % Baso % (Auto) 0.1 (0.0-2.0) % Neut # (Auto) 9.88 H (1.40-7.00) K/uL Lymph # (Auto) 0.97 (0.50-3.50) K/uL [place] # (Auto) 0.87 (0.00-1.00) K/uL Eos # (Auto) 0.00 (0.00-0.50) K/uL Baso # (Auto) 0.01 (0.00-0.20) K/uL Sodium 139 (136-145) mmol/L Potassium 4.9 (3.5-5.1) mmol/L Chloride 104 (98-107) mmol/L Carbon Dioxide 26.2 (21.0-32.0) mmol/L Anion Gap 8.8 (7-15) meq/L BUN 19 H (7-18) mg/dL Creatinine 0.96 (0.51-1.17) mg/dL Est Cr Clr Drug Dosing 89.77 mL/min Estimated GFR (MDRD) > 60 mL/min Glucose 131 H (70-99) mg/dL Calcium 8.8 (8.5-10.1) mg/dL Total Bilirubin 0.5 (0.2-1.0) mg/dL Direct Bilirubin 0.2 (0.0-0.2) mg/dL AST 43 H (15-37) U/L ALT 47 (12-78) U/L Alkaline Phosphatase 68 (46-116) IU/L Total Protein 6.4 (6.4-8.2) g/dL Albumin 2.8 L (3.4-5.0) g/dL Med Orders - Current: Current Medications Acetaminophen (Acetaminophen 325 Mg Tab) 650 mg PO Q4H PRN PRN Reason: Fever Greater Than 101 Hydrocodone Bitart/Acetaminophen (Acetaminophen/Hydrocodone 325-5 Mg Tab) 1 tab PO Q4H PRN PRN Reason: Pain (moderate 4-6) Albuterol (Albuterol 0.083% 2.5 Mg/3 Ml Neb Soln) 2.5 mg NEB Q2H PRN PRN Reason: Shortness Of Breath/wheezing Last Admin: 04/11/21 04:39 Dose: 2.5 mg Documented by: Albuterol/Ipratropium (Albuterol/Ipratropium 3.0-0.5 Mg/3 Ml Neb Soln) 3 ml NEB TID [facility] Last Admin: 04/12/21 11:31 Dose: 3 ml Documented by: Ascorbic Acid (Ascorbic Acid 500 Mg Tab) 500 mg PO BID [facility] Last Admin: 04/12/21 08:08 Dose: 500 mg Documented by: Atorvastatin Calcium (Atorvastatin 10 Mg Tab) 10 mg PO BEDTIME [facility] Last Admin: 04/11/21 21:28 Dose: 10 mg Documented by: Azithromycin (Azithromycin 250 Mg Tab) 250 mg PO DAILY [facility] Last Admin: 04/12/21 08:08 Dose: 250 mg Documented by: Benzonatate (Benzonatate 100 Mg Cap) 200 mg PO TID [facility] Last Admin: 04/12/21 11:31 Dose: 200 mg Documented by: Bisacodyl (Bisacodyl 5 Mg Tab) 5 mg PO DAILY PRN PRN Reason: Constipation Cholecalciferol (Cholecalciferol (Vitamin D3) 5,000 Unit Tab) 5,000 unit PO DAILY [facility] Last Admin: 04/12/21 08:08 Dose: 5,000 unit Documented by: Dexamethasone (Dexamethasone 2 Mg Tab) 6 mg PO DAILY [facility] Stop: 04/19/21 08:01 Last Admin: 04/12/21 08:08 Dose: 6 mg Documented by: Enoxaparin Sodium (Enoxaparin 40 Mg/0.4 Ml Syringe) 40 mg SUBCUT DAILY [facility] Last Admin: 04/12/21 08:09 Dose: 40 mg Documented by: Remdesivir 100 mg/ Sodium (Chloride) 100 mls @ 100 mls/hr IV Q24H [facility] Stop: 04/13/21 21:59 Last Admin: 04/11/21 21:28 Dose: 100 mls/hr Documented by: Ibuprofen (Ibuprofen 600 Mg Tab) 600 mg PO Q6H PRN PRN Reason: Pain (mild 1-3) Melatonin (Melatonin 3 Mg Tab) 6 mg PO BEDTIME PRN PRN Reason: Insomnia Metoprolol Succinate (Metoprolol Succinate 50 Mg Tab.Er) 200 mg PO DAILY [facility] Last Admin: 04/12/21 08:08 Dose: 200 mg Documented by: Ondansetron HCl (Ondansetron 4 Mg Tab.Dis) 4 mg PO Q4H PRN PRN Reason: Nausea/Vomiting Ondansetron HCl (Ondansetron 4 Mg/2 Ml Sdv) 4 mg IVPUSH Q4H PRN PRN Reason: Nausea/Vomiting Sodium Chloride (Sodium Chloride 0.9% 10 Ml Syringe) 10 ml FLUSH ASDIRECTED PRN PRN Reason: Keep Vein Open Last Admin: 04/12/21 08:10 Dose: 10 ml Documented by: Sodium Chloride (Sodium Chloride 0.9% 10 Ml Syringe) 30 ml FLUSH DAILY@2200 [facility] Stop: 04/13/21 22:01 Last Admin: 04/11/21 21:29 Dose: 30 ml Documented by: Sodium Chloride (Sodium Chloride 0.65% Nasal [place] 45 Ml Bottle) 0 ml KAMRAN Q2H PRN PRN Reason: Nasal Dryness Last Admin: 04/12/21 11:31 Dose: 2 spray Documented by: Zinc Gluconate (Zinc (Zinc Gluconate) 50 Mg Tab) 50 mg PO DAILY [facility] Last Admin: 04/12/21 08:08 Dose: 50 mg Documented by: Discontinued Medications Albuterol/Ipratropium (Albuterol/Ipratropium 3.0-0.5 Mg/3 Ml Neb Soln) 3 ml NEB BID [facility] Last Admin: 04/12/21 08:08 Dose: 3 ml Documented by: Azithromycin (Azithromycin 250 Mg Tab) 500 mg PO ONETIME ONE Stop: 04/11/21 08:57 Last Admin: 04/11/21 09:57 Dose: 500 mg Documented by: Dexamethasone (Dexamethasone 2 Mg Tab) 6 mg PO ONETIME ONE Stop: 04/09/21 21:49 Last Admin: 04/09/21 21:57 Dose: 6 mg Documented by: Sodium Chloride (Normal Saline) 1,000 mls @ 999 mls/hr IV ASDIRECTED [facility] Last Admin: 04/09/21 20:50 Dose: 999 mls/hr Documented by: Sodium Chloride (Normal Saline) 1,000 mls @ 999 mls/hr IV ASDIRECTED [facility] Last Admin: 04/09/21 21:50 Dose: 999 mls/hr Documented by: Remdesivir 200 mg/ Sodium (Chloride) 250 mls @ 250 mls/hr IV ONETIME ONE Stop: 04/09/21 22:48 Last Admin: 04/09/21 23:14 Dose: 250 mls/hr Documented by: Remdesivir 100 mg/ Sodium (Chloride) 100 mls @ 100 mls/hr IV Q24H [facility] Stop: 04/13/21 09:59 Iopamidol (Iopamidol 755 Mg/Ml 100 Ml Bottle) 100 ml IVPUSH ONETIME ONE Stop: 04/09/21 21:53 Last Admin: 04/09/21 22:42 Dose: 100 ml Documented by: Non-Formulary Medication (Metoprolol Succinate [Toprol Xl]) 200 mg PO DAILY [facility] - Exam Quality Assessment: Supplemental Oxygen, DVT Prophylaxis General: Alert, Oriented, Cooperative, No Acute Distress HEENT: Pupils Equal, Pupils Reactive, EOMI, Mucous Membr. Moist/[place] Neck: Supple Lungs: Decreased Breath Sounds (throughout). No: Crackles, Rales, Rhonchi, Stridor, Wheezing Cardiovascular: Regular Rate, Regular Rhythm GI/Abdominal Exam: Normal Bowel Sounds, Soft, Non-Tender, No Distention (Male) Exam: Deferred Back Exam: No: CVA Tenderness (L), CVA Tenderness (R), Muscle Spasm Extremities: Normal Range of Motion, Non-Tender, Normal Capillary Refill Skin: Warm, Dry Neurological: No New Focal Deficit Psy/Mental Status: Alert, Normal Affect, Normal Mood - Patient Data Lab Results Last 24 hrs: Laboratory Results - last 24 hr 04/12/21 04/12/21 Range/Units 07:08 07:08 WBC 11.7 H (4.0-10.2) K/uL RBC 4.76 (4.33-5.41) M/uL Hgb 14.5 (13.1-16.8) g/dL Hct 43.7 (39.0-49.0) % MCV 91.8 (84.0-98.0) fL MCH 30.5 (28.2-33.3) pg MCHC 33.2 (31.7-36.0) g/dL RDW 13.0 (11.2-14.1) % Plt Count 201 (150-350) K/uL Neut % (Auto) 84.2 H (45.0-80.0) % Lymph % (Auto) 8.3 L (10.0-50.0) % [place] % (Auto) 7.4 (2.0-14.0) % Eos % (Auto) 0.0 (0.0-5.0) % Baso % (Auto) 0.1 (0.0-2.0) % Neut # (Auto) 9.88 H (1.40-7.00) K/uL Lymph # (Auto) 0.97 (0.50-3.50) K/uL [place] # (Auto) 0.87 (0.00-1.00) K/uL Eos # (Auto) 0.00 (0.00-0.50) K/uL Baso # (Auto) 0.01 (0.00-0.20) K/uL Sodium 139 (136-145) mmol/L Potassium 4.9 (3.5-5.1) mmol/L Chloride 104 (98-107) mmol/L Carbon Dioxide 26.2 (21.0-32.0) mmol/L Anion Gap 8.8 (7-15) meq/L BUN 19 H (7-18) mg/dL Creatinine 0.96 (0.51-1.17) mg/dL Est Cr Clr Drug Dosing 89.77 mL/min Estimated GFR (MDRD) > 60 mL/min Glucose 131 H (70-99) mg/dL Calcium 8.8 (8.5-10.1) mg/dL Total Bilirubin 0.5 (0.2-1.0) mg/dL Direct Bilirubin 0.2 (0.0-0.2) mg/dL AST 43 H (15-37) U/L ALT 47 (12-78) U/L Alkaline Phosphatase 68 (46-116) IU/L Total Protein 6.4 (6.4-8.2) g/dL Albumin 2.8 L (3.4-5.0) g/dL Result Diagrams: 04/12/21 07:08 04/12/21 07:08 Sepsis Event Note - Evaluation Sepsis Screening Result: No Definite Risk - Focused Exam Vital Signs: Vital Signs Temp Pulse Pulse Resp BP BP Pulse Ox 04/12/21 14:00 36.8 C 72 18 128/78 88 L 04/12/21 08:08 61 126/76 04/12/21 08:00 36.6 C 61 18 126/76 87 L - Problem List & Annotations (1) Acute respiratory disease due to COVID-19 virus SNOMED Code(s): 888797064, 718296564 Code(s): U07.1 - COVID-19; J06.9 - ACUTE UPPER RESPIRATORY INFECTION, UNSPECIFIED Status: Acute Priority: High Current Visit: Yes Annotati on/Comment:: 04/11/2021 stable, needing supplemental oxygen. Receiving Remdesivir and Dexamethasone. Added Zithromax due to elevating white count and increased O2 requirement. (2) Hypoxia SNOMED Code(s): 437500285 Code(s): R09.02 - HYPOXEMIA Status: Acute Priority: High Current Visit: Yes Annotation/Comment:: Continue with redmesivir, decadron. Incentive spirometry. Patient proning. O2 sats on 4L in mid/upper 80s with activity. 88-90 at rest. Neb frequency increased. Will increase O2 to 5 lpm. Consider highflow if worsens. (3) Thrombocytopenia associated with COVID-19 SNOMED Code(s): 223462345 Code(s): U07.1 - COVID-19; D69.59 - OTHER SECONDARY THROMBOCYTOPENIA Status: Resolved Priority: Medium Current Visit: Yes Annotation/Comment:: 04/11/2021 improved, above 150 now, continue to monitor. (4) Hyperlipidemia SNOMED Code(s): 59133829 Code(s): E78.5 - HYPERLIPIDEMIA, UNSPECIFIED Status: Chronic Priority: Low Current Visit: No Qualifiers: Hyperlipidemia type: unspecified Qualified Code(s): E78.5 - Hyperlipidemia, unspecified Annotation/Comment:: Continue home medication (5) HTN (hypertension) SNOMED Code(s): 01453298 Code(s): I10 - ESSENTIAL (PRIMARY) HYPERTENSION Status: Chronic Priority: Low Current Visit: No Qualifiers: Hypertension type: primary hypertension Qualified Code(s): I10 - Essential (primary) hypertension Annotation/Comment:: Observe trends and continue home medication - Problem List Review Problem List Initiated/Reviewed/Updated: Yes - My Orders Last 24 Hours: My Active Orders 04/12/21 09:37 Sodium Chloride 0.65% [[place] Nasal [place]] 0 ml KAMRAN Q2H PRN 04/12/21 12:00 Albuterol/Ipratropium [DuoNeb 3.0-0.5 MG/3 ML] 3 ml NEB TID - Assessment Assessment:: 04/12/2021 covid pneumonia with increased white count, oxygen needs on Day 9 of symptoms. Improved thrombocytopenia Acute respiratory failure from covid 19. Receiving remdesivir and decadron, on supplemental oxygen - Plan Plan:: 04/12/2021 As above. Iincrease oxygen or switch to high flow if indicated Continue remdesivir, and decadron with supplemental oxygen. Getting vitamin c, d and zinc. continue current medications for chronic hypertension and hyperlipidemia as they are stable. Anticipate discharge after last dose of remdesivir and once O2 requirements improve and appear stable. May need supplemental oxygen for home use at time of discharge. Continue prone position, continue Lovenox prophylaxis for dvt
[2021-04-12] MEDS: atorvaSTATin 10 MG Tab PO SCH (20:58)
[2021-04-12] MEDS: REMDESIVIR 100 MG in Sodium Chloride 0.9% 100 ML IV SCH (20:59)
[2021-04-12] MEDS: Albuterol 0.083% 2.5 MG/3 ML Neb Soln NEB PRN (21:41)
[2021-04-12] MEDS: Sodium Chloride 0.9% 10 ML Syringe FLUSH SCH (22:11)
[2021-04-13] MEDS: Enoxaparin 40 MG/0.4 ML Syringe SUBCUT SCH (07:53)
[2021-04-13] MEDS: Albuterol/Ipratropium 3.0-0.5 MG/3 ML Neb Soln NEB SCH ×3 (07:55→17:28)
[2021-04-13] MEDS: Benzonatate 100 MG Cap PO SCH ×3 (07:55→17:28)
[2021-04-13] MEDS: Dexamethasone 2 MG Tab PO SCH (07:55)
[2021-04-13] MEDS: Ascorbic Acid 500 MG Tab PO SCH ×2 (07:56→17:28)
[2021-04-13] MEDS: Cholecalciferol (Vitamin D3) 5,000 UNIT Tab PO SCH (07:56)
[2021-04-13] MEDS: Azithromycin 250 MG Tab PO SCH (07:56)
[2021-04-13] MEDS: Metoprolol Succinate 50 MG Tab.ER PO SCH (07:56)
[2021-04-13] MEDS: Zinc (Zinc Gluconate) 50 MG Tab PO SCH (07:56)
[2021-04-13] MEDS: Sodium Chloride 0.9% 10 ML Syringe FLUSH PRN (07:58)
[2021-04-13] MEDS: Acetaminophen 325 MG Tab PO PRN ×2 (08:06→17:42)
[2021-04-13 08:30] LABS: ANION GAP 9.7 meq/L (7-15); CHLORIDE,CL 103 mmol/L (98-107); SODIUM,NA 141 mmol/L (136-145)
--- NOTE | 2021-04-13 10:29 | PCM.PN ---
- General Info Date of Service: 04/13/21 Admission Dx/Problem (Free Text): Admission Diagnosis/Problem Admission Diagnosis/Problem Acute respiratory failure with hypoxemia due to COVID19 Subjective Update: continues to feel short of breath even at rest. coughing up blood tinged sputum. no other acute concerns. Functional Status: Reports: Pain Controlled - Review of Systems General: Reports: Weakness HEENT: Reports: Glasses. Denies: Headaches Pulmonary: Reports: Shortness of Breath, Cough, Sputum. Denies: Wheezing Cardiovascular: Reports: Dyspnea on Exertion. Denies: Chest Pain, Edema, Lightheadedness Gastrointestinal: Reports: No Symptoms Genitourinary: Reports: No Symptoms Musculoskeletal: Reports: No Symptoms Skin: Reports: No Symptoms Neurological: Reports: No Symptoms Psychiatric: Reports: No Symptoms - Patient Data Vitals - Most Recent: Last Vital Signs Temp 98.8 F 04/13/21 08:00 Pulse 58 L 04/13/21 08:00 Resp 28 H 04/13/21 08:00 BP 135/82 04/13/21 08:00 Pulse Ox 90 L 04/13/21 08:00 Weight - Most Recent: 250 lb I&O - Last 24 Hours: Intake & Output 04/12/21 04/13/21 04/13/21 22:59 06:59 14:59 Intake Total 960 Output Total 800 400 700 Balance -800 -400 260 Lab Results Last 24 Hours: Laboratory Results - last 24 hr 04/13/21 04/13/21 Range/Units 07:15 07:15 WBC 10.6 H (4.0-10.2) K/uL RBC 4.77 (4.33-5.41) M/uL Hgb 14.6 (13.1-16.8) g/dL Hct 43.2 (39.0-49.0) % MCV 90.6 (84.0-98.0) fL MCH 30.6 (28.2-33.3) pg MCHC 33.8 (31.7-36.0) g/dL RDW 12.9 (11.2-14.1) % Plt Count 241 (150-350) K/uL Neut % (Auto) 81.0 H (45.0-80.0) % Lymph % (Auto) 10.3 (10.0-50.0) % [place] % (Auto) 8.6 (2.0-14.0) % Eos % (Auto) 0.0 (0.0-5.0) % Baso % (Auto) 0.1 (0.0-2.0) % Neut # (Auto) 8.57 H (1.40-7.00) K/uL Lymph # (Auto) 1.09 (0.50-3.50) K/uL [place] # (Auto) 0.91 (0.00-1.00) K/uL Eos # (Auto) 0.00 (0.00-0.50) K/uL Baso # (Auto) 0.01 (0.00-0.20) K/uL Sodium 141 (136-145) mmol/L Potassium 4.7 (3.5-5.1) mmol/L Chloride 103 (98-107) mmol/L Carbon Dioxide 28.3 (21.0-32.0) mmol/L Anion Gap 9.7 (7-15) meq/L BUN 21 H (7-18) mg/dL Creatinine 0.89 (0.51-1.17) mg/dL Est Cr Clr Drug Dosing 96.83 mL/min Estimated GFR (MDRD) > 60 mL/min Glucose 121 H (70-99) mg/dL Calcium 8.6 (8.5-10.1) mg/dL Total Bilirubin 0.5 (0.2-1.0) mg/dL Direct Bilirubin 0.2 (0.0-0.2) mg/dL AST 38 H (15-37) U/L ALT 44 (12-78) U/L Alkaline Phosphatase 68 (46-116) IU/L Total Protein 6.6 (6.4-8.2) g/dL Albumin 2.7 L (3.4-5.0) g/dL Med Orders - Current: Current Medications Acetaminophen (Acetaminophen 325 Mg Tab) 650 mg PO Q4H PRN PRN Reason: Fever Greater Than 101 Last Admin: 04/13/21 08:06 Dose: 650 mg Documented by: Hydrocodone Bitart/Acetaminophen (Acetaminophen/Hydrocodone 325-5 Mg Tab) 1 tab PO Q4H PRN PRN Reason: Pain (moderate 4-6) Albuterol (Albuterol 0.083% 2.5 Mg/3 Ml Neb Soln) 2.5 mg NEB Q2H PRN PRN Reason: Shortness Of Breath/wheezing Last Admin: 04/12/21 21:41 Dose: 2.5 mg Documented by: Albuterol/Ipratropium (Albuterol/Ipratropium 3.0-0.5 Mg/3 Ml Neb Soln) 3 ml NEB TID [facility] Last Admin: 04/13/21 07:55 Dose: 3 ml Documented by: Ascorbic Acid (Ascorbic Acid 500 Mg Tab) 500 mg PO BID [facility] Last Admin: 04/13/21 07:56 Dose: 500 mg Documented by: Atorvastatin Calcium (Atorvastatin 10 Mg Tab) 10 mg PO BEDTIME [facility] Last Admin: 04/12/21 20:58 Dose: 10 mg Documented by: Azithromycin (Azithromycin 250 Mg Tab) 250 mg PO DAILY [facility] Last Admin: 04/13/21 07:56 Dose: 250 mg Documented by: Benzonatate (Benzonatate 100 Mg Cap) 200 mg PO TID [facility] Last Admin: 04/13/21 07:55 Dose: 200 mg Documented by: Bisacodyl (Bisacodyl 5 Mg Tab) 5 mg PO DAILY PRN PRN Reason: Constipation Cholecalciferol (Cholecalciferol (Vitamin D3) 5,000 Unit Tab) 5,000 unit PO DAILY [facility] Last Admin: 04/13/21 07:56 Dose: 5,000 unit Documented by: Dexamethasone (Dexamethasone 2 Mg Tab) 6 mg PO DAILY [facility] Stop: 04/19/21 08:01 Last Admin: 04/13/21 07:55 Dose: 6 mg Documented by: Enoxaparin Sodium (Enoxaparin 40 Mg/0.4 Ml Syringe) 40 mg SUBCUT DAILY [facility] Last Admin: 04/13/21 07:53 Dose: 40 mg Documented by: Remdesivir 100 mg/ Sodium (Chloride) 100 mls @ 100 mls/hr IV Q24H [facility] Stop: 04/13/21 21:59 Last Admin: 04/12/21 20:59 Dose: 100 mls/hr Documented by: Ibuprofen (Ibuprofen 600 Mg Tab) 600 mg PO Q6H PRN PRN Reason: Pain (mild 1-3) Melatonin (Melatonin 3 Mg Tab) 6 mg PO BEDTIME PRN PRN Reason: Insomnia Metoprolol Succinate (Metoprolol Succinate 50 Mg Tab.Er) 200 mg PO DAILY [facility] Last Admin: 04/13/21 07:56 Dose: 200 mg Documented by: Ondansetron HCl (Ondansetron 4 Mg Tab.Dis) 4 mg PO Q4H PRN PRN Reason: Nausea/Vomiting Ondansetron HCl (Ondansetron 4 Mg/2 Ml Sdv) 4 mg IVPUSH Q4H PRN PRN Reason: Nausea/Vomiting Sodium Chloride (Sodium Chloride 0.9% 10 Ml Syringe) 10 ml FLUSH ASDIRECTED PRN PRN Reason: Keep Vein Open Last Admin: 04/13/21 07:58 Dose: 10 ml Documented by: Sodium Chloride (Sodium Chloride 0.9% 10 Ml Syringe) 30 ml FLUSH DAILY@2200 [facility] Stop: 04/13/21 22:01 Last Admin: 04/12/21 22:11 Dose: 30 ml Documented by: Sodium Chloride (Sodium Chloride 0.65% Nasal [place] 45 Ml Bottle) 0 ml K[facility]AN Q2H PRN PRN Reason: Nasal Dryness Last Admin: 04/12/21 11:31 Dose: 2 spray Documented by: Zinc Gluconate (Zinc (Zinc Gluconate) 50 Mg Tab) 50 mg PO DAILY [facility] Last Admin: 04/13/21 07:56 Dose: 50 mg Documented by: Discontinued Medications Albuterol/Ipratropium (Albuterol/Ipratropium 3.0-0.5 Mg/3 Ml Neb Soln) 3 ml NEB BID [facility] Last Admin: 04/12/21 08:08 Dose: 3 ml Documented by: Azithromycin (Azithromycin 250 Mg Tab) 500 mg PO ONETIME ONE Stop: 04/11/21 08:57 Last Admin: 04/11/21 09:57 Dose: 500 mg Documented by: Dexamethasone (Dexamethasone 2 Mg Tab) 6 mg PO ONETIME ONE Stop: 04/09/21 21:49 Last Admin: 04/09/21 21:57 Dose: 6 mg Documented by: Sodium Chloride (Normal Saline) 1,000 mls @ 999 mls/hr IV ASDIRECTED [facility] Last Admin: 04/09/21 20:50 Dose: 999 mls/hr Documented by: Sodium Chloride (Normal Saline) 1,000 mls @ 999 mls/hr IV ASDIRECTED [facility] Last Admin: 04/09/21 21:50 Dose: 999 mls/hr Documented by: Remdesivir 200 mg/ Sodium (Chloride) 250 mls @ 250 mls/hr IV ONETIME ONE Stop: 04/09/21 22:48 Last Admin: 04/09/21 23:14 Dose: 250 mls/hr Documented by: Remdesivir 100 mg/ Sodium (Chloride) 100 mls @ 100 mls/hr IV Q24H [facility] Stop: 04/13/21 09:59 Iopamidol (Iopamidol 755 Mg/Ml 100 Ml Bottle) 100 ml IVPUSH ONETIME ONE Stop: 04/09/21 21:53 Last Admin: 04/09/21 22:42 Dose: 100 ml Documented by: Non-Formulary Medication (Metoprolol Succinate [Toprol Xl]) 200 mg PO DAILY [facility] - Exam Quality Assessment: Supplemental Oxygen, DVT Prophylaxis. No: Urine Catheter General: Alert, Oriented, Mild Distress HEENT: EOMI Neck: Supple, No JVD Lungs: Rales (scattered). No: Clear to Auscultation, Normal Respiratory Effort, Crackles, Rub (increased work of breathing), Wheezing GI/Abdominal Exam: Soft, Non-Tender (Male) Exam: Deferred Back Exam: Normal Inspection, Full Range of Motion Extremities: Normal Range of Motion, Non-Tender Skin: Warm, Dry Neurological: No New Focal Deficit Psy/Mental Status: Normal Affect, Normal Mood - Patient Data Lab Results Last 24 hrs: Laboratory Results - last 24 hr 04/13/21 04/13/21 Range/Units 07:15 07:15 WBC 10.6 H (4.0-10.2) K/uL RBC 4.77 (4.33-5.41) M/uL Hgb 14.6 (13.1-16.8) g/dL Hct 43.2 (39.0-49.0) % MCV 90.6 (84.0-98.0) fL MCH 30.6 (28.2-33.3) pg MCHC 33.8 (31.7-36.0) g/dL RDW 12.9 (11.2-14.1) % Plt Count 241 (150-350) K/uL Neut % (Auto) 81.0 H (45.0-80.0) % Lymph % (Auto) 10.3 (10.0-50.0) % [place] % (Auto) 8.6 (2.0-14.0) % Eos % (Auto) 0.0 (0.0-5.0) % Baso % (Auto) 0.1 (0.0-2.0) % Neut # (Auto) 8.57 H (1.40-7.00) K/uL Lymph # (Auto) 1.09 (0.50-3.50) K/uL [place] # (Auto) 0.91 (0.00-1.00) K/uL Eos # (Auto) 0.00 (0.00-0.50) K/uL Baso # (Auto) 0.01 (0.00-0.20) K/uL Sodium 141 (136-145) mmol/L Potassium 4.7 (3.5-5.1) mmol/L Chloride 103 (98-107) mmol/L Carbon Dioxide 28.3 (21.0-32.0) mmol/L Anion Gap 9.7 (7-15) meq/L BUN 21 H (7-18) mg/dL Creatinine 0.89 (0.51-1.17) mg/dL Est Cr Clr Drug Dosing 96.83 mL/min Estimated GFR (MDRD) > 60 mL/min Glucose 121 H (70-99) mg/dL Calcium 8.6 (8.5-10.1) mg/dL Total Bilirubin 0.5 (0.2-1.0) mg/dL Direct Bilirubin 0.2 (0.0-0.2) mg/dL AST 38 H (15-37) U/L ALT 44 (12-78) U/L Alkaline Phosphatase 68 (46-116) IU/L Total Protein 6.6 (6.4-8.2) g/dL Albumin 2.7 L (3.4-5.0) g/dL Result Diagrams: 04/13/21 07:15 04/13/21 07:15 Sepsis Event Note - Evaluation Sepsis Screening Result: No Definite Risk - Focused Exam Vital Signs: Vital Signs Temp Pulse Pulse Resp BP BP Pulse Ox 04/13/21 08:00 98.8 F 58 L 28 H 135/82 90 L 04/13/21 07:56 58 L 135/82 - Problem List Review Problem List Initiated/Reviewed/Updated: Yes - Assessment Assessment:: Covid 19 viral pneumonia acute respiratory failure with hypoxia 2/2 above: - currently requiring 5L supplemental oxygen to maintain saturations >90% Plan: - continue remdesivir for 5 days and decacron for 10 days. - wean oxygen as tolerated - DC vitamin C and zinc - convert nebulizers to MDIs per COVID 19 recommendations. Essential HTN: - plan to wean off of toprol XL by decreasing to 100mg once daily for one week then 50 mg once daily for one week then stop - start lisinopril 20mg once daily. - consider adding HCTZ if blood pressure is not well controlled at the end of toprol XL taper Chronic conditions: - mixed HLD: continue statin - severe obesity with BMI 35-39 on admit - Plan Plan:: 04/12/2021 As above. Iincrease oxygen or switch to high flow if indicated Continue remdesivir, and decadron with supplemental oxygen. Getting vitamin c, d and zinc. continue current medications for chronic hypertension and hyperlipidemia as they are stable. Anticipate discharge after last dose of remdesivir and once O2 requirements improve and appear stable. May need supplemental oxygen for home use at time of discharge. Continue prone position, continue Lovenox prophylaxis for dvt
[2021-04-13] MEDS: atorvaSTATin 10 MG Tab PO SCH (21:16)
[2021-04-13] MEDS: Sodium Chloride 0.9% 10 ML Syringe FLUSH SCH (21:17)
[2021-04-13] MEDS: REMDESIVIR 100 MG in Sodium Chloride 0.9% 100 ML IV SCH (21:17)
[2021-04-14] MEDS: Enoxaparin 40 MG/0.4 ML Syringe SUBCUT SCH (07:56)
[2021-04-14] MEDS: Metoprolol Succinate 50 MG Tab.ER PO SCH (07:56)
[2021-04-14] MEDS: Dexamethasone 2 MG Tab PO SCH (07:56)
[2021-04-14] MEDS: Benzonatate 100 MG Cap PO SCH ×3 (07:57→17:39)
[2021-04-14] MEDS: Azithromycin 250 MG Tab PO SCH (07:57)
[2021-04-14] MEDS: Lisinopril 20 MG Tab PO SCH (07:57)
[2021-04-14] MEDS: Cholecalciferol (Vitamin D3) 5,000 UNIT Tab PO SCH (07:57)
[2021-04-14] MEDS: Sodium Chloride 0.9% 10 ML Syringe FLUSH PRN (07:58)
--- NOTE | 2021-04-14 18:02 | PCM.PN ---
- General Info Date of Service: 04/14/21 Admission Dx/Problem (Free Text): Admission Diagnosis/Problem Admission Diagnosis/Problem Acute respiratory failure with hypoxemia due to COVID19 Subjective Update: Hospital day 5 for this patient with Acute hypoxic respiratory failure secondary to COVID. Still continued shortness of breath at rest but improving. He was able to shower today got fairly weak with this. No other symptoms at this time. He would like to get home. Functional Status: Reports: Pain Controlled, Tolerating Diet, Ambulating, Incentive Spirometry (qhr). Denies: New Symptoms - Review of Systems General: Reports: No Symptoms HEENT: Reports: No Symptoms Pulmonary: Reports: Shortness of Breath (Minimal same over past few days. ) Cardiovascular: Reports: Chest Pain (Tightness in chest constant since arrival and hospitalization. ), Dyspnea on Exertion. Denies: Palpitations, Orthopnea, Lightheadedness Gastrointestinal: Reports: No Symptoms Genitourinary: Reports: No Symptoms Musculoskeletal: Reports: No Symptoms. Denies: Leg Pain, Foot Pain, Joint Pain, Joint Swelling Skin: Reports: No Symptoms Neurological: Reports: No Symptoms Psychiatric: Reports: No Symptoms - Patient Data Vitals - Most Recent: Last Vital Signs Temp 97.8 F 04/14/21 14:00 Pulse 55 L 04/14/21 14:00 Resp 17 04/14/21 14:00 BP 106/60 04/14/21 14:00 Pulse Ox 93 L 04/14/21 14:00 Weight - Most Recent: 246 lb 4.8 oz I&O - Last 24 Hours: Intake & Output 04/14/21 04/14/21 04/14/21 06:59 14:59 22:59 Intake Total 500 710 Output Total 500 Balance 0 710 Med Orders - Current: Current Medications Acetaminophen (Acetaminophen 325 Mg Tab) 650 mg PO Q4H PRN PRN Reason: Fever Greater Than 101 Last Admin: 04/13/21 17:42 Dose: 650 mg Documented by: Atorvastatin Calcium (Atorvastatin 10 Mg Tab) 10 mg PO BEDTIME [facility] Last Admin: 04/13/21 21:16 Dose: 10 mg Documented by: Azithromycin (Azithromycin 250 Mg Tab) 250 mg PO DAILY [facility] Last Admin: 04/14/21 07:57 Dose: 250 mg Documented by: Benzonatate (Benzonatate 100 Mg Cap) 200 mg PO TID [facility] Last Admin: 04/14/21 17:39 Dose: 200 mg Documented by: Bisacodyl (Bisacodyl 5 Mg Tab) 5 mg PO DAILY PRN PRN Reason: Constipation Cholecalciferol (Cholecalciferol (Vitamin D3) 5,000 Unit Tab) 5,000 unit PO DAILY [facility] Last Admin: 04/14/21 07:57 Dose: 5,000 unit Documented by: Dexamethasone (Dexamethasone 2 Mg Tab) 6 mg PO DAILY [facility] Stop: 04/19/21 08:01 Last Admin: 04/14/21 07:56 Dose: 6 mg Documented by: Enoxaparin Sodium (Enoxaparin 40 Mg/0.4 Ml Syringe) 40 mg SUBCUT DAILY [facility] Last Admin: 04/14/21 07:56 Dose: 40 mg Documented by: Lisinopril (Lisinopril 20 Mg Tab) 20 mg PO DAILY [facility] Last Admin: 04/14/21 07:57 Dose: 20 mg Documented by: Melatonin (Melatonin 3 Mg Tab) 6 mg PO BEDTIME PRN PRN Reason: Insomnia Metoprolol Succinate (Metoprolol Succinate 50 Mg Tab.Er) 100 mg PO DAILY [facility] Last Admin: 04/14/21 07:56 Dose: 100 mg Documented by: Ondansetron HCl (Ondansetron 4 Mg Tab.Dis) 4 mg PO Q4H PRN PRN Reason: Nausea/Vomiting Ondansetron HCl (Ondansetron 4 Mg/2 Ml Sdv) 4 mg IVPUSH Q4H PRN PRN Reason: Nausea/Vomiting Sodium Chloride (Sodium Chloride 0.9% 10 Ml Syringe) 10 ml FLUSH ASDIRECTED PRN PRN Reason: Keep Vein Open Last Admin: 04/14/21 07:58 Dose: 10 ml Documented by: Sodium Chloride (Sodium Chloride 0.65% Nasal [place] 45 Ml Bottle) 0 ml KAMRAN Q2H PRN PRN Reason: Nasal Dryness Last Admin: 04/12/21 11:31 Dose: 2 spray Documented by: Discontinued Medications Hydrocodone Bitart/Acetaminophen (Acetaminophen/Hydrocodone 325-5 Mg Tab) 1 tab PO Q4H PRN PRN Reason: Pain (moderate 4-6) Albuterol (Albuterol 0.083% 2.5 Mg/3 Ml Neb Soln) 2.5 mg NEB Q2H PRN PRN Reason: Shortness Of Breath/wheezing Last Admin: 04/12/21 21:41 Dose: 2.5 mg Documented by: Albuterol/Ipratropium (Albuterol/Ipratropium 3.0-0.5 Mg/3 Ml Neb Soln) 3 ml NEB BID [facility] Last Admin: 04/12/21 08:08 Dose: 3 ml Documented by: Albuterol/Ipratropium (Albuterol/Ipratropium 3.0-0.5 Mg/3 Ml Neb Soln) 3 ml NEB TID [facility] Last Admin: 04/13/21 17:28 Dose: 3 ml Documented by: Ascorbic Acid (Ascorbic Acid 500 Mg Tab) 500 mg PO BID [facility] Last Admin: 04/13/21 17:28 Dose: 500 mg Documented by: Azithromycin (Azithromycin 250 Mg Tab) 500 mg PO ONETIME ONE Stop: 04/11/21 08:57 Last Admin: 04/11/21 09:57 Dose: 500 mg Documented by: Dexamethasone (Dexamethasone 2 Mg Tab) 6 mg PO ONETIME ONE Stop: 04/09/21 21:49 Last Admin: 04/09/21 21:57 Dose: 6 mg Documented by: Sodium Chloride (Normal Saline) 1,000 mls @ 999 mls/hr IV ASDIRECTED [facility] Last Admin: 04/09/21 20:50 Dose: 999 mls/hr Documented by: Sodium Chloride (Normal Saline) 1,000 mls @ 999 mls/hr IV ASDIRECTED [facility] Last Admin: 04/09/21 21:50 Dose: 999 mls/hr Documented by: Remdesivir 200 mg/ Sodium (Chloride) 250 mls @ 250 mls/hr IV ONETIME ONE Stop: 04/09/21 22:48 Last Admin: 04/09/21 23:14 Dose: 250 mls/hr Documented by: Remdesivir 100 mg/ Sodium (Chloride) 100 mls @ 100 mls/hr IV Q24H [facility] Stop: 04/13/21 09:59 Remdesivir 100 mg/ Sodium (Chloride) 100 mls @ 100 mls/hr IV Q24H [facility] Stop: 04/13/21 21:59 Last Admin: 04/13/21 21:17 Dose: 100 mls/hr Documented by: Ibuprofen (Ibuprofen 600 Mg Tab) 600 mg PO Q6H PRN PRN Reason: Pain (mild 1-3) Iopamidol (Iopamidol 755 Mg/Ml 100 Ml Bottle) 100 ml IVPUSH ONETIME ONE Stop: 04/09/21 21:53 Last Admin: 04/09/21 22:42 Dose: 100 ml Documented by: Metoprolol Succinate (Metoprolol Succinate 50 Mg Tab.Er) 200 mg PO DAILY [facility] Last Admin: 04/13/21 07:56 Dose: 200 mg Documented by: Non-Formulary Medication (Metoprolol Succinate [Toprol Xl]) 200 mg PO DAILY [facility] Sodium Chloride (Sodium Chloride 0.9% 10 Ml Syringe) 30 ml FLUSH DAILY@2200 [facility] Stop: 04/13/21 22:01 Last Admin: 04/13/21 21:17 Dose: 30 ml Documented by: Zinc Gluconate (Zinc (Zinc Gluconate) 50 Mg Tab) 50 mg PO DAILY [facility] Last Admin: 04/13/21 07:56 Dose: 50 mg Documented by: - Exam Quality Assessment: Supplemental Oxygen (4liters ), DVT Prophylaxis (Lovenox) General: Alert, Oriented, No Acute Distress (He can converse easily and speak in full sentences. No distress. ) HEENT: Pupils Equal, Pupils Reactive Neck: Supple Lungs: Crackles (Fine inspiratory crackles bilaterally. ). No: Rhonchi, Wheezing Cardiovascular: Regular Rate, Regular Rhythm GI/Abdominal Exam: Normal Bowel Sounds, Soft, Non-Tender (Male) Exam: Deferred Back Exam: Normal Inspection Extremities: Normal Inspection, Normal Range of Motion, Non-Tender, No Pedal Edema, Normal Capillary Refill Peripheral Pulses: 2+: Radial (L), Radial (R), Posterior Tibial (L), Posterior Tibial (R), Dorsalis Pedis (L), Dorsalis Pedis (R) Skin: Warm, Dry, Intact Neurological: No New Focal Deficit Psy/Mental Status: Alert, Normal Affect, Normal Mood - Patient Data Result Diagrams: 04/13/21 07:15 04/13/21 07:15 Sepsis Event Note - Evaluation Sepsis Screening Result: No Definite Risk - Focused Exam Vital Signs: Vital Signs Temp Pulse Pulse Resp BP BP Pulse Ox 04/14/21 14:00 97.8 F 55 L 17 106/60 93 L 04/14/21 08:00 97.6 F 61 18 112/73 90 L 04/14/21 07:57 112/73 04/14/21 07:56 61 112/73 - Problem List Review Problem List Initiated/Reviewed/Updated: Yes - Assessment Assessment:: Covid 19 viral pneumonia acute respiratory failure with hypoxia 2/2 above: - currently requiring 4L supplemental oxygen to maintain saturations >90% Plan: - Remdesivir finished and continue decadron for 10 days total - wean oxygen as tolerated - DC vitamin C and zinc - convert nebulizers to MDIs per COVID 19 recommendations. Essential HTN: - plan to wean off of toprol XL by decreasing to 100mg once daily for one week then 50 mg once daily (04/20/21) for one week then stop - start lisinopril 20mg once daily. - BP 106/60, 112/73 asymptomatic. Will watch closely no change at this time. - consider adding HCTZ if blood pressure is not well controlled at the end of toprol XL taper Chronic conditions: - mixed HLD: continue statin - severe obesity with BMI 35-39 on admit VTE: Lovenox 40mg subcut qd Sepsis: No signs of sepsis at this time. Continue to monitor. Code Status: Full Code. Will continue on inpatient care as he is still requiring quite a bit of oxygen as well as monitoring for his blood pressure changes and medication changes. [place]. Consider DC tomorrow after ensuring BP is okay with the aggressive changes in his home meds.
[2021-04-14] MEDS: atorvaSTATin 10 MG Tab PO SCH (20:20)
[2021-04-14] MEDS ORDERED: Calcium Carbonate 500 MG Tab.Chew PO PRN (20:21)
[2021-04-15] MEDS: Enoxaparin 40 MG/0.4 ML Syringe SUBCUT SCH (07:51)
[2021-04-15] MEDS: Benzonatate 100 MG Cap PO SCH ×3 (07:52→17:13)
[2021-04-15] MEDS: Azithromycin 250 MG Tab PO SCH (07:52)
[2021-04-15] MEDS: Dexamethasone 2 MG Tab PO SCH (07:52)
[2021-04-15] MEDS: Metoprolol Succinate 50 MG Tab.ER PO SCH (07:53)
[2021-04-15] MEDS: Cholecalciferol (Vitamin D3) 5,000 UNIT Tab PO SCH (07:53)
[2021-04-15] MEDS: Lisinopril 20 MG Tab PO SCH (07:53)
[2021-04-15] MEDS: atorvaSTATin 10 MG Tab PO SCH (19:14)
[2021-04-15] MEDS ORDERED: Albuterol 6.7 GM Inhaler INH PRN (21:19)
--- NOTE | 2021-04-15 21:20 | PCM.PN ---
- General Info Date of Service: 04/15/21 Admission Dx/Problem (Free Text): Admission Diagnosis/Problem Admission Diagnosis/Problem Acute respiratory failure with hypoxemia due to COVID19 Subjective Update: Breathlessness with activity is improving but unable to tolerate room air. Functional Status: Reports: Pain Controlled, Tolerating Diet, Ambulating, Urinating, Incentive Spirometry. Denies: New Symptoms - Review of Systems General: Reports: Fatigue. Denies: Fever, Weakness, Chills, Night Sweats HEENT: Reports: No Symptoms Pulmonary: Reports: Shortness of Breath, Cough. Denies: Pleuritic Chest Pain, Sputum, Hemoptysis, Wheezing Cardiovascular: Reports: No Symptoms Gastrointestinal: Reports: No Symptoms Genitourinary: Reports: No Symptoms Musculoskeletal: Reports: No Symptoms Skin: Reports: No Symptoms Neurological: Reports: No Symptoms Psychiatric: Reports: No Symptoms - Patient Data Vitals - Most Recent: Last Vital Signs Temp 36.9 C 04/15/21 19:15 Pulse 63 04/15/21 19:15 Resp 20 04/15/21 19:15 BP 110/66 04/15/21 19:15 Pulse Ox 97 04/15/21 20:00 Weight - Most Recent: 111.266 kg I&O - Last 24 Hours: Intake & Output 04/15/21 04/15/21 04/15/21 06:59 14:59 22:59 Intake Total 913 656 0428 Output Total 825 Balance 500 -105 1480 Med Orders - Current: Current Medications Acetaminophen (Acetaminophen 325 Mg Tab) 650 mg PO Q4H PRN PRN Reason: Fever Greater Than 101 Last Admin: 04/13/21 17:42 Dose: 650 mg Documented by: Atorvastatin Calcium (Atorvastatin 10 Mg Tab) 10 mg PO BEDTIME [facility] Last Admin: 04/15/21 19:14 Dose: 10 mg Documented by: Azithromycin (Azithromycin 250 Mg Tab) 250 mg PO DAILY [facility] Last Admin: 04/15/21 07:52 Dose: 250 mg Documented by: Benzonatate (Benzonatate 100 Mg Cap) 200 mg PO TID [facility] Last Admin: 04/15/21 17:13 Dose: 200 mg Documented by: Bisacodyl (Bisacodyl 5 Mg Tab) 5 mg PO DAILY PRN PRN Reason: Constipation Calcium Carbonate/Glycine (Calcium Carbonate 500 Mg Tab.Chew) 1,000 mg PO Q2HR PRN PRN Reason: Indigestion Last Admin: 04/14/21 20:29 Dose: 1,000 mg Documented by: Cholecalciferol (Cholecalciferol (Vitamin D3) 5,000 Unit Tab) 5,000 unit PO DAILY [facility] Last Admin: 04/15/21 07:53 Dose: 5,000 unit Documented by: Dexamethasone (Dexamethasone 2 Mg Tab) 6 mg PO DAILY [facility] Stop: 04/19/21 08:01 Last Admin: 04/15/21 07:52 Dose: 6 mg Documented by: Enoxaparin Sodium (Enoxaparin 40 Mg/0.4 Ml Syringe) 40 mg SUBCUT DAILY [facility] Last Admin: 04/15/21 07:51 Dose: 40 mg Documented by: Lisinopril (Lisinopril 20 Mg Tab) 20 mg PO DAILY [facility] Last Admin: 04/15/21 07:53 Dose: 20 mg Documented by: Melatonin (Melatonin 3 Mg Tab) 6 mg PO BEDTIME PRN PRN Reason: Insomnia Metoprolol Succinate (Metoprolol Succinate 50 Mg Tab.Er) 100 mg PO DAILY [facility] Last Admin: 04/15/21 07:53 Dose: 100 mg Documented by: Ondansetron HCl (Ondansetron 4 Mg Tab.Dis) 4 mg PO Q4H PRN PRN Reason: Nausea/Vomiting Ondansetron HCl (Ondansetron 4 Mg/2 Ml Sdv) 4 mg IVPUSH Q4H PRN PRN Reason: Nausea/Vomiting Sodium Chloride (Sodium Chloride 0.9% 10 Ml Syringe) 10 ml FLUSH ASDIRECTED PRN PRN Reason: Keep Vein Open Last Admin: 04/14/21 07:58 Dose: 10 ml Documented by: Sodium Chloride (Sodium Chloride 0.65% Nasal [place] 45 Ml Bottle) 0 ml KAMRAN Q2H PRN PRN Reason: Nasal Dryness Last Admin: 04/12/21 11:31 Dose: 2 spray Documented by: Discontinued Medications Hydrocodone Bitart/Acetaminophen (Acetaminophen/Hydrocodone 325-5 Mg Tab) 1 tab PO Q4H PRN PRN Reason: Pain (moderate 4-6) Albuterol (Albuterol 0.083% 2.5 Mg/3 Ml Neb Soln) 2.5 mg NEB Q2H PRN PRN Reason: Shortness Of Breath/wheezing Last Admin: 04/12/21 21:41 Dose: 2.5 mg Documented by: Albuterol/Ipratropium (Albuterol/Ipratropium 3.0-0.5 Mg/3 Ml Neb Soln) 3 ml NEB BID [facility] Last Admin: 04/12/21 08:08 Dose: 3 ml Documented by: Albuterol/Ipratropium (Albuterol/Ipratropium 3.0-0.5 Mg/3 Ml Neb Soln) 3 ml NEB TID [facility] Last Admin: 04/13/21 17:28 Dose: 3 ml Documented by: Ascorbic Acid (Ascorbic Acid 500 Mg Tab) 500 mg PO BID [facility] Last Admin: 04/13/21 17:28 Dose: 500 mg Documented by: Azithromycin (Azithromycin 250 Mg Tab) 500 mg PO ONETIME ONE Stop: 04/11/21 08:57 Last Admin: 04/11/21 09:57 Dose: 500 mg Documented by: Dexamethasone (Dexamethasone 2 Mg Tab) 6 mg PO ONETIME ONE Stop: 04/09/21 21:49 Last Admin: 04/09/21 21:57 Dose: 6 mg Documented by: Sodium Chloride (Normal Saline) 1,000 mls @ 999 mls/hr IV ASDIRECTED [facility] Last Admin: 04/09/21 20:50 Dose: 999 mls/hr Documented by: Sodium Chloride (Normal Saline) 1,000 mls @ 999 mls/hr IV ASDIRECTED [facility] Last Admin: 04/09/21 21:50 Dose: 999 mls/hr Documented by: Remdesivir 200 mg/ Sodium (Chloride) 250 mls @ 250 mls/hr IV ONETIME ONE Stop: 04/09/21 22:48 Last Admin: 04/09/21 23:14 Dose: 250 mls/hr Documented by: Remdesivir 100 mg/ Sodium (Chloride) 100 mls @ 100 mls/hr IV Q24H [facility] Stop: 04/13/21 09:59 Remdesivir 100 mg/ Sodium (Chloride) 100 mls @ 100 mls/hr IV Q24H [facility] Stop: 04/13/21 21:59 Last Admin: 04/13/21 21:17 Dose: 100 mls/hr Documented by: Ibuprofen (Ibuprofen 600 Mg Tab) 600 mg PO Q6H PRN PRN Reason: Pain (mild 1-3) Iopamidol (Iopamidol 755 Mg/Ml 100 Ml Bottle) 100 ml IVPUSH ONETIME ONE Stop: 04/09/21 21:53 Last Admin: 04/09/21 22:42 Dose: 100 ml Documented by: Metoprolol Succinate (Metoprolol Succinate 50 Mg Tab.Er) 200 mg PO DAILY [facility] Last Admin: 04/13/21 07:56 Dose: 200 mg Documented by: Non-Formulary Medication (Metoprolol Succinate [Toprol Xl]) 200 mg PO DAILY [facility] Sodium Chloride (Sodium Chloride 0.9% 10 Ml Syringe) 30 ml FLUSH DAILY@2200 [facility] Stop: 04/13/21 22:01 Last Admin: 04/13/21 21:17 Dose: 30 ml Documented by: Zinc Gluconate (Zinc (Zinc Gluconate) 50 Mg Tab) 50 mg PO DAILY [facility] Last Admin: 04/13/21 07:56 Dose: 50 mg Documented by: - Exam Quality Assessment: Supplemental Oxygen, DVT Prophylaxis General: Alert, Oriented, Cooperative, No Acute Distress HEENT: Pupils Equal, Pupils Reactive, EOMI, Mucous Membr. Moist/[place] Neck: Supple Lungs: Normal Respiratory Effort, Decreased Breath Sounds (throughout). No: Crackles, Rales, Rhonchi, Rub, Stridor, Wheezing Cardiovascular: Regular Rate, Regular Rhythm GI/Abdominal Exam: Normal Bowel Sounds, Soft, Non-Tender, No Distention (Male) Exam: Deferred Back Exam: Normal Inspection Extremities: Normal Inspection, Normal Range of Motion, Non-Tender, Normal Capillary Refill Skin: Warm, Dry Neurological: No New Focal Deficit Psy/Mental Status: Alert, Normal Affect, Normal Mood - Patient Data Result Diagrams: 04/13/21 07:15 04/13/21 07:15 Sepsis Event Note - Evaluation Sepsis Screening Result: No Definite Risk - Focused Exam Vital Signs: Vital Signs Temp Pulse Resp BP Pulse Ox 04/15/21 20:00 97 04/15/21 19:15 36.9 C 63 20 110/66 90 L 04/15/21 16:33 92 L 04/15/21 13:43 36.9 C 60 14 100/62 86 L - Problem List & Annotations (1) Acute respiratory disease due to COVID-19 virus SNOMED Code(s): 537229778, 894399050 Code(s): U07.1 - COVID-19; J06.9 - ACUTE UPPER RESPIRATORY INFECTION, UNSPECIFIED Status: Acute Priority: High Current Visit: Yes Annotation/Comment:: Continues to need supplemental oxygen and currently at 5liters. Dexamethasone/Combivent and PRN Albuterol MDI (2) Hypoxia SNOMED Code(s): 486152198 Code(s): R09.02 - HYPOXEMIA Status: Acute Priority: High Current Visit: Yes Annotation/Comment:: Incentive spirometry. Combivent/dexamethasone. Patient proning. Stable on 5L [place] O2 (3) Thrombocytopenia associated with COVID-19 SNOMED Code(s): 914446095 Code(s): U07.1 - COVID-19; D69.59 - OTHER SECONDARY THROMBOCYTOPENIA Status: Resolved Priority: Medium Current Visit: Yes Annotation/Comment:: 04/11/2021 improved, above 150 now, continue to monitor. (4) Hyperlipidemia SNOMED Code(s): 75395315 Code(s): E78.5 - HYPERLIPIDEMIA, UNSPECIFIED Status: Chronic Priority: L ow Current Visit: No Qualifiers: Hyperlipidemia type: unspecified Qualified Code(s): E78.5 - Hyperlipidemia, unspecified Annotation/Comment:: Continue home medication (5) HTN (hypertension) SNOMED Code(s): 16626264 Code(s): I10 - ESSENTIAL (PRIMARY) HYPERTENSION Status: Chronic Priority: Low Current Visit: No Qualifiers: Hypertension type: primary hypertension Qualified Code(s): I10 - Essential (primary) hypertension Annotation/Comment:: Observe trends and continue home medication (6) Obesity SNOMED Code(s): 307951139, 504526723 Code(s): E66.9 - OBESITY, UNSPECIFIED Status: Acute Priority: Low Current Visit: Yes Qualifiers: Obesity type: unspecified obesity type Obesity classification: unspecified obesity classification Serious obesity comorbidity presence: without serious comorbidity Qualified Code(s): E66.9 - Obesity, unspecified Annotation/Comment:: Diet/excercise recommendations reviewed with patient. - Problem List Review Problem List Initiated/Reviewed/Updated: Yes - Assessment Assessment:: Covid 19 viral pneumonia acute respiratory failure with hypoxia 2/2 above: - currently requiring 5L supplemental oxygen to maintain saturations >90% Plan: - Remdesivir finished and continue decadron for 10 days total - wean oxygen as tolerated - DC vitamin C and zinc - convert nebulizers to MDIs per COVID 19 recommendations. Essential HTN: - plan to wean off of toprol XL by decreasing to 100mg once daily for one week then 50 mg once daily (04/20/21) for one week then stop - start lisinopril 20mg once daily. - BP 106/60, 112/73 asymptomatic. Will watch closely no change at this time. - consider adding HCTZ if blood pressure is not well controlled at the end of toprol XL taper Chronic conditions: - mixed HLD: continue statin - severe obesity with BMI 35-39 on admit VTE: Lovenox 40mg subcut qd Sepsis: No signs of sepsis at this time. Continue to monitor. Code Status: Full Code. - Plan Plan:: 04/12/2021 As above. Iincrease oxygen or switch to high flow if indicated Continue Combivent, Albuterol, decadron with supplemental oxygen. Continue current medications for chronic hypertension and hyperlipidemia as they are stable. Continue prone position, continue Lovenox prophylaxis for dvt Discharge home on home O2 once oxygenation levels stabilize and supplemental O2 is at 3L [place].
[2021-04-16] MEDS: Enoxaparin 40 MG/0.4 ML Syringe SUBCUT SCH (07:51)
[2021-04-16] MEDS: Azithromycin 250 MG Tab PO SCH (07:52)
[2021-04-16] MEDS: Dexamethasone 2 MG Tab PO SCH (07:52)
[2021-04-16] MEDS: Benzonatate 100 MG Cap PO SCH ×3 (07:52→17:10)
[2021-04-16] MEDS: Cholecalciferol (Vitamin D3) 5,000 UNIT Tab PO SCH (07:52)
[2021-04-16] MEDS: Lisinopril 20 MG Tab PO SCH (07:59)
[2021-04-16] MEDS: Metoprolol Succinate 50 MG Tab.ER PO SCH (07:59)
[2021-04-16] MEDS: Albuterol/Ipratropium 4 GM Inhalation Spray INH SCH ×4 (08:03→19:14)
[2021-04-16 08:37] LABS: CHLORIDE,CL 99 mmol/L (98-107); SODIUM,NA 135 mmol/L (136-145)
[2021-04-16 08:42] LABS: ANION GAP 14.2 meq/L (7-15)
[2021-04-16] MEDS: Acetaminophen 325 MG Tab PO PRN ×2 (10:10→19:13)
[2021-04-16] MEDS ORDERED: Sodium Chloride 0.9% 1,000 ML IV ONE (11:32)
--- NOTE | 2021-04-16 11:41 | PCM.PN ---
- General Info Date of Service: 04/16/21 Admission Dx/Problem (Free Text): Admission Diagnosis/Problem Admission Diagnosis/Problem Acute respiratory failure with hypoxemia due to COVID19 Subjective Update: Breathlessness with activity is improving but unable to tolerate room air. Functional Status: Reports: Pain Controlled, Tolerating Diet, Ambulating, Urinating, Incentive Spirometry. Denies: New Symptoms Pain Score: 0 - Review of Systems General: Reports: No Symptoms HEENT: Reports: No Symptoms Pulmonary: Reports: Shortness of Breath, Cough. Denies: Pleuritic Chest Pain, Sputum, Hemoptysis, Wheezing Cardiovascular: Reports: Dyspnea on Exertion. Denies: Chest Pain, Palpitations, Orthopnea, Edema, Lightheadedness Gastrointestinal: Reports: No Symptoms Genitourinary: Reports: No Symptoms Musculoskeletal: Reports: No Symptoms Skin: Reports: No Symptoms Neurological: Reports: No Symptoms Psychiatric: Reports: No Symptoms - Patient Data Vitals - Most Recent: Last Vital Signs Temp 36.2 C 04/16/21 07:45 Pulse 75 04/16/21 10:11 Resp 16 04/16/21 07:45 BP 90/55 L 04/16/21 10:11 Pulse Ox 98 04/16/21 10:38 Weight - Most Recent: 111.266 kg I&O - Last 24 Hours: Intake & Output 04/15/21 04/16/21 04/16/21 22:59 06:59 14:59 Intake Total 1480 Output Total 825 Balance 1480 -825 Lab Results Last 24 Hours: Laboratory Results - last 24 hr 04/16/21 04/16/21 04/16/21 Range/Units 08:15 08:15 08:15 WBC 16.4 H (4.0-10.2) K/uL RBC 5.24 (4.33-5.41) M/uL Hgb 15.9 (13.1-16.8) g/dL Hct 47.1 (39.0-49.0) % MCV 89.9 (84.0-98.0) fL MCH 30.3 (28.2-33.3) pg MCHC 33.8 (31.7-36.0) g/dL RDW 12.9 (11.2-14.1) % Plt Count 397 H D (150-350) K/uL Neut % (Auto) 86.7 H (45.0-80.0) % Lymph % (Auto) 8.8 L (10.0-50.0) % [place] % (Auto) 4.0 (2.0-14.0) % Eos % (Auto) 0.4 (0.0-5.0) % Baso % (Auto) 0.1 (0.0-2.0) % Neut # (Auto) 14.22 H (1.40-7.00) K/uL Lymph # (Auto) 1.44 (0.50-3.50) K/uL [place] # (Auto) 0.65 (0.00-1.00) K/uL Eos # (Auto) 0.06 (0.00-0.50) K/uL Baso # (Auto) 0.01 (0.00-0.20) K/uL Sodium 135 L (136-145) mmol/L Potassium 4.5 (3.5-5.1) mmol/L Chloride 99 (98-107) mmol/L Carbon Dioxide 26.3 (21.0-32.0) mmol/L Anion Gap 14.2 (7-15) meq/L BUN 23 H (7-18) mg/dL Creatinine 1.13 (0.51-1.17) mg/dL Est Cr Clr Drug Dosing 76.27 mL/min Estimated GFR (MDRD) > 60 mL/min Glucose 135 H (70-99) mg/dL Lactic Acid 1.9 (0.4-2.0) mmol/L Calcium 8.8 (8.5-10.1) mg/dL Magnesium 2.3 (1.8-2.4) mg/dL Total Bilirubin 0.8 (0.2-1.0) mg/dL AST 45 H (15-37) U/L ALT 59 (12-78) U/L Alkaline Phosphatase 71 (46-116) IU/L Total Protein 7.5 (6.4-8.2) g/dL Albumin 3.2 L (3.4-5.0) g/dL Med Orders - Current: Current Medications Acetaminophen (Acetaminophen 325 Mg Tab) 650 mg PO Q4H PRN PRN Reason: Fever Greater Than 101/Pain Last Admin: 04/16/21 10:10 Dose: 650 mg Documented by: Albuterol (Albuterol 6.7 Gm Inhaler) 0 gm INH Q2H PRN PRN Reason: Shortness of Breath Albuterol/Ipratropium (Albuterol/Ipratropium 4 Gm Inhalation Roe) 0 gm INH QIDRT [facility] Last Admin: 04/16/21 08:03 Dose: 1 puff Documented by: Atorvastatin Calcium (Atorvastatin 10 Mg Tab) 10 mg PO BEDTIME [facility] Last Admin: 04/15/21 19:14 Dose: 10 mg Documented by: Azithromycin (Azithromycin 250 Mg Tab) 250 mg PO DAILY [facility] Last Admin: 04/16/21 07:52 Dose: 250 mg Documented by: Benzonatate (Benzonatate 100 Mg Cap) 200 mg PO TID [facility] Last Admin: 04/16/21 07:52 Dose: 200 mg Documented by: Bisacodyl (Bisacodyl 5 Mg Tab) 5 mg PO DAILY PRN PRN Reason: Constipation Calcium Carbonate/Glycine (Calcium Carbonate 500 Mg Tab.Chew) 1,000 mg PO Q2HR PRN PRN Reason: Indigestion Last Admin: 04/14/21 20:29 Dose: 1,000 mg Documented by: Cholecalciferol (Cholecalciferol (Vitamin D3) 5,000 Unit Tab) 5,000 unit PO DAILY [facility] Last Admin: 04/16/21 07:52 Dose: 5,000 unit Documented by: Dexamethasone (Dexamethasone 2 Mg Tab) 6 mg PO DAILY [facility] Stop: 04/19/21 08:01 Last Admin: 04/16/21 07:52 Dose: 6 mg Documented by: Enoxaparin Sodium (Enoxaparin 40 Mg/0.4 Ml Syringe) 40 mg SUBCUT DAILY [facility] Last Admin: 04/16/21 07:51 Dose: 40 mg Documented by: Sodium Chloride (Normal Saline) 1,000 mls @ 250 mls/hr IV .BOLUS ONE Stop: 04/16/21 15:31 Lisinopril (Lisinopril 20 Mg Tab) 20 mg PO DAILY [facility] Last Admin: 04/16/21 07:59 Dose: 20 mg Documented by: Melatonin (Melatonin 3 Mg Tab) 6 mg PO BEDTIME PRN PRN Reason: Insomnia Metoprolol Succinate (Metoprolol Succinate 50 Mg Tab.Er) 100 mg PO DAILY [facility] Last Admin: 04/16/21 07:59 Dose: Not Given Documented by: Ondansetron HCl (Ondansetron 4 Mg Tab.Dis) 4 mg PO Q4H PRN PRN Reason: Nausea/Vomiting Ondansetron HCl (Ondansetron 4 Mg/2 Ml Sdv) 4 mg IVPUSH Q4H PRN PRN Reason: Nausea/Vomiting Sodium Chloride (Sodium Chloride 0.9% 10 Ml Syringe) 10 ml FLUSH ASDIRECTED PRN PRN Reason: Keep Vein Open Last Admin: 04/14/21 07:58 Dose: 10 ml Documented by: Sodium Chloride (Sodium Chloride 0.65% Nasal Roe 45 Ml Bottle) 0 ml KAMRAN Q2H PRN PRN Reason: Nasal Dryness Last Admin: 04/12/21 11:31 Dose: 2 spray Documented by: Discontinued Medications Hydrocodone Bitart/Acetaminophen (Acetaminophen/Hydrocodone 325-5 Mg Tab) 1 tab PO Q4H PRN PRN Reason: Pain (moderate 4-6) Albuterol (Albuterol 0.083% 2.5 Mg/3 Ml Neb Soln) 2.5 mg NEB Q2H PRN PRN Reason: Shortness Of Breath/wheezing Last Admin: 04/12/21 21:41 Dose: 2.5 mg Documented by: Albuterol/Ipratropium (Albuterol/Ipratropium 3.0-0.5 Mg/3 Ml Neb Soln) 3 ml NEB BID [facility] Last Admin: 04/12/21 08:08 Dose: 3 ml Documented by: Albuterol/Ipratropium (Albuterol/Ipratropium 3.0-0.5 Mg/3 Ml Neb Soln) 3 ml NEB TID [facility] Last Admin: 04/13/21 17:28 Dose: 3 ml Documented by: Ascorbic Acid (Ascorbic Acid 500 Mg Tab) 500 mg PO BID [facility] Last Admin: 04/13/21 17:28 Dose: 500 mg Documented by: Azithromycin (Azithromycin 250 Mg Tab) 500 mg PO ONETIME ONE Stop: 04/11/21 08:57 Last Admin: 04/11/21 09:57 Dose: 500 mg Documented by: Dexamethasone (Dexamethasone 2 Mg Tab) 6 mg PO ONETIME ONE Stop: 04/09/21 21:49 Last Admin: 04/09/21 21:57 Dose: 6 mg Documented by: Sodium Chloride (Normal Saline) 1,000 mls @ 999 mls/hr IV ASDIRECTED [facility] Last Admin: 04/09/21 20:50 Dose: 999 mls/hr Documented by: Sodium Chloride (Normal Saline) 1,000 mls @ 999 mls/hr IV ASDIRECTED [facility] Last Admin: 04/09/21 21:50 Dose: 999 mls/hr Documented by: Remdesivir 200 mg/ Sodium (Chloride) 250 mls @ 250 mls/hr IV ONETIME ONE Stop: 04/09/21 22:48 Last Admin: 04/09/21 23:14 Dose: 250 mls/hr Documented by: Remdesivir 100 mg/ Sodium (Chloride) 100 mls @ 100 mls/hr IV Q24H [facility] Stop: 04/13/21 09:59 Remdesivir 100 mg/ Sodium (Chloride) 100 mls @ 100 mls/hr IV Q24H [facility] Stop: 04/13/21 21:59 Last Admin: 04/13/21 21:17 Dose: 100 mls/hr Documented by: Ibuprofen (Ibuprofen 600 Mg Tab) 600 mg PO Q6H PRN PRN Reason: Pain (mild 1-3) Iopamidol (Iopamidol 755 Mg/Ml 100 Ml Bottle) 100 ml IVPUSH ONETIME ONE Stop: 04/09/21 21:53 Last Admin: 04/09/21 22:42 Dose: 100 ml Documented by: Metoprolol Succinate (Metoprolol Succinate 50 Mg Tab.Er) 200 mg PO DAILY [facility] Last Admin: 04/13/21 07:56 Dose: 200 mg Documented by: Non-Formulary Medication (Metoprolol Succinate [Toprol Xl]) 200 mg PO DAILY [facility] Sodium Chloride (Sodium Chloride 0.9% 10 Ml Syringe) 30 ml FLUSH DAILY@2200 [facility] Stop: 04/13/21 22:01 Last Admin: 04/13/21 21:17 Dose: 30 ml Documented by: Zinc Gluconate (Zinc (Zinc Gluconate) 50 Mg Tab) 50 mg PO DAILY [facility] Last Admin: 04/13/21 07:56 Dose: 50 mg Documented by: - Exam Quality Assessment: Supplemental Oxygen, DVT Prophylaxis General: Alert, Oriented, Cooperative, No Acute Distress HEENT: Pupils Equal, Pupils Reactive, EOMI, Mucous Membr. Moist/[place] Neck: Supple Lungs: Clear to Auscultation, Normal Respiratory Effort, Decreased Breath Sounds (throughout) Cardiovascular: Regular Rate, Regular Rhythm GI/Abdominal Exam: Normal Bowel Sounds, Soft, Non-Tender, No Distention (Male) Exam: Deferred Back Exam: No: CVA Tenderness (L), CVA Tenderness (R) Extremities: Normal Inspection, Non-Tender, Normal Capillary Refill Skin: Warm, Dry Neurological: No New Focal Deficit Psy/Mental Status: Alert, Normal Affect, Normal Mood - Patient Data Lab Results Last 24 hrs: Laboratory Results - last 24 hr 04/16/21 04/16/21 04/16/21 Range/Units 08:15 08:15 08:15 WBC 16.4 H (4.0-10.2) K/uL RBC 5.24 (4.33-5.41) M/uL Hgb 15.9 (13.1-16.8) g/dL Hct 47.1 (39.0-49.0) % MCV 89.9 (84.0-98.0) fL MCH 30.3 (28.2-33.3) pg MCHC 33.8 (31.7-36.0) g/dL RDW 12.9 (11.2-14.1) % Plt Count 397 H D (150-350) K/uL Neut % (Auto) 86.7 H (45.0-80.0) % Lymph % (Auto) 8.8 L (10.0-50.0) % [place] % (Auto) 4.0 (2.0-14.0) % Eos % (Auto) 0.4 (0.0-5.0) % Baso % (Auto) 0.1 (0.0-2.0) % Neut # (Auto) 14.22 H (1.40-7.00) K/uL Lymph # (Auto) 1.44 (0.50-3.50) K/uL [place] # (Auto) 0.65 (0.00-1.00) K/uL Eos # (Auto) 0.06 (0.00-0.50) K/uL Baso # (Auto) 0.01 (0.00-0.20) K/uL Sodium 135 L (136-145) mmol/L Potassium 4.5 (3.5-5.1) mmol/L Chloride 99 (98-107) mmol/L Carbon Dioxide 26.3 (21.0-32.0) mmol/L Anion Gap 14.2 (7-15) meq/L BUN 23 H (7-18) mg/dL Creatinine 1.13 (0.51-1.17) mg/dL Est Cr Clr Drug Dosing 76.27 mL/min Estimated GFR (MDRD) > 60 mL/min Glucose 135 H (70-99) mg/dL Lactic Acid 1.9 (0.4-2.0) mmol/L Calcium 8.8 (8.5-10.1) mg/dL Magnesium 2.3 (1.8-2.4) mg/dL Total Bilirubin 0.8 (0.2-1.0) mg/dL AST 45 H (15-37) U/L ALT 59 (12-78) U/L Alkaline Phosphatase 71 (46-116) IU/L Total Protein 7.5 (6.4-8.2) g/dL Albumin 3.2 L (3.4-5.0) g/dL Result Diagrams: 04/16/21 08:15 04/16/21 08:15 Sepsis Event Note - Evaluation Sepsis Screening Result: No Definite Risk - Focused Exam Vital Signs: Vital Signs Temp Pulse Pulse Resp BP BP Pulse Ox 04/16/21 10:38 98 04/16/21 10:11 75 90/55 L 90 L 04/16/21 10:00 95 04/16/21 07:59 74 96/60 04/16/21 07:50 90 L 04/16/21 07:45 36.2 C 74 16 96/60 90 L - Problem List & Annotations (1) Acute respiratory disease due to COVID-19 virus SNOMED Code(s): 558829703, 660810694 Code(s): U07.1 - COVID-19; J06.9 - ACUTE UPPER RESPIRATORY INFECTION, UNSPECIFIED Status: Acute Priority: High Current Visit: Yes Annotation/Comment:: Continues to need supplemental oxygen. Trial on 4L today. Dexamethasone/Combivent and PRN Albuterol MDI (2) Hypoxia SNOMED Code(s): 713569642 Code(s): R09.02 - HYPOXEMIA Status: Acute Priority: High Current Visit: Yes Annotation/Comment:: Incentive spirometry. Combivent/dexamethasone. Patient proning. Stable on 4L [place] O2 (3) Thrombocytopenia associated with COVID-19 SNOMED Code(s): 946832653 Code(s): U07.1 - COVID-19; D69.59 - OTHER SECONDARY THROMBOCYTOPENIA Status: Resolved Priority: Medium Current Visit: Yes Annotation/Comment:: 04/11/2021 improved, above 150 now, continue to monitor. (4) Hyperlipidemia SNOMED Code(s): 17367792 Code(s): E78.5 - HYPERLIPIDEMIA, UNSPECIFIED Status: Chronic Priority: Low Current Visit: No Qualifiers: Hyperlipidemia type: unspecified Qualified Code(s): E78.5 - Hyperlipidemia, unspecified Annotation/Comment:: Continue home medication (5) HTN (hypertension) SNOMED Code(s): 84742760 Code(s): I10 - ESSENTIAL (PRIMARY) HYPERTENSION Status: Chronic Priority: Low Current Visit: No Qualifiers: Hypertension type: primary hypertension Qualified Code(s): I10 - Essential (primary) hypertension Annotation/Comment:: Lisinopril initiated due to elevated readings and bradycardia (patient on high dose beta anibal). Metoprolol dose being reduced. Metoprolol held this morning due to hypotension. Will give dose later today if BP rebounds. (6) Obesity SNOMED Code(s): 718978315, 730836919 Code(s): E66.9 - OBESITY, UNSPECIFIED Status: Acute Priority: Low Current Visit: Yes Qualifiers: Obesity type: unspecified obesity type Obesity classification: unspecified obesity classification Serious obesity comorbidity presence: without serious comorbidity Qualified Code(s): E66.9 - Obesity, unspecified Annotation/Comment:: Diet/excercise recommendations reviewed with patient. - Problem List Review Problem List Initiated/Reviewed/Updated: Yes - My Orders Last 24 Hours: My Active Orders 04/15/21 21:19 RT Post Treatment Assessment [RC] Click to Edit RT Pre-Treatment Assessment [RC] Click to Edit Albuterol [Proventil HFA] See Dose Instructions INH Q2H PRN 04/16/21 08:00 Albuterol/Ipratropium [Combivent Respimat] 0 gm INH QIDRT 04/16/21 11:32 Sodium Chloride 0.9% [Normal Saline] 1,000 ml IV .BOLUS 04/17/21 05:11 Chest 2V [CR] AM 04/17/21 05:15 BASIC METABOLIC PANEL,BMP [CHEM] AM CBC WITH AUTO DIFF [HEME] AM - Assessment Assessment:: Covid 19 viral pneumonia acute respiratory failure with hypoxia 2/2 above: - currently requiring 5L supplemental oxygen to maintain saturations >90% Plan: - Remdesivir finished and continue decadron for 10 days total - wean oxygen as tolerated - DC vitamin C and zinc - convert nebulizers to MDIs per COVID 19 recommendations. Essential HTN: - plan to wean off of toprol XL by decreasing to 100mg once daily for one week then 50 mg once daily (04/20/21) for one week then stop - start lisinopril 20mg once daily. - consider adding HCTZ if blood pressure is not well controlled at the end of toprol XL taper Chronic conditions: - mixed HLD: continue statin - severe obesity with BMI 35-39 on admit VTE: Lovenox 40mg subcut qd Sepsis: No signs of sepsis at this time. Continue to monitor. Code Status: Full Code. 04/16 Elevated white count suspected to be secondary to steroids. Patient afebrile. Covered with Zithromax. Mild elevation BUN/Cr. Single liter NS ordered. Recheck labs and chest xray in AM. - Plan Plan:: 04/12/2021 As above. Increase oxygen or switch to high flow if indicated Continue Combivent, Albuterol, decadron with supplemental oxygen. Continue current medications for chronic hypertension and hyperlipidemia as they are stable. Continue prone position, continue Lovenox prophylaxis for dvt Discharge home on home O2 once oxygenation levels stabilize. Supplemental O2 at discharge is 3L [place].
[2021-04-16] MEDS: Sodium Chloride 0.9% 10 ML Syringe FLUSH PRN (11:57)
[2021-04-16] MEDS: atorvaSTATin 10 MG Tab PO SCH (19:13)
[2021-04-17] MEDS: Lisinopril 20 MG Tab PO SCH (07:40)
[2021-04-17] MEDS: Dexamethasone 2 MG Tab PO SCH (07:40)
[2021-04-17] MEDS: Cholecalciferol (Vitamin D3) 5,000 UNIT Tab PO SCH (07:41)
[2021-04-17] MEDS: Azithromycin 250 MG Tab PO SCH (07:41)
[2021-04-17] MEDS: Benzonatate 100 MG Cap PO SCH ×3 (07:41→17:10)
[2021-04-17] MEDS: Acetaminophen 325 MG Tab PO PRN ×2 (07:42→20:25)
[2021-04-17] MEDS: Enoxaparin 40 MG/0.4 ML Syringe SUBCUT SCH (07:43)
[2021-04-17] MEDS: Albuterol/Ipratropium 4 GM Inhalation Spray INH SCH ×4 (07:46→20:26)
[2021-04-17] MEDS: Metoprolol Succinate 50 MG Tab.ER PO SCH ×2 (08:00→09:39)
[2021-04-17 08:28] LABS: CHLORIDE,CL 102 mmol/L (98-107); SODIUM,NA 135 mmol/L (136-145)
[2021-04-17 08:44] LABS: ANION GAP 12.1 meq/L (7-15)
--- NOTE | 2021-04-17 12:41 | PCM.PN ---
- General Info Date of Service: 04/17/21 Admission Dx/Problem (Free Text): Admission Diagnosis/Problem Admission Diagnosis/Problem Acute respiratory failure with hypoxemia due to COVID19 Subjective Update: Breathlessness with activity is improving but unable to tolerate room air. Functional Status: Reports: Pain Controlled, Tolerating Diet, Ambulating, Urinating, Incentive Spirometry. Denies: New Symptoms - Review of Systems General: Reports: No Symptoms HEENT: Reports: No Symptoms Pulmonary: Reports: Shortness of Breath (improving), Cough (improving). Denies: Pleuritic Chest Pain, Sputum, Hemoptysis, Wheezing Cardiovascular: Reports: Dyspnea on Exertion (improving). Denies: Chest Pain, Palpitations, Orthopnea, Lightheadedness Gastrointestinal: Reports: No Symptoms Genitourinary: Reports: No Symptoms Musculoskeletal: Reports: No Symptoms Skin: Reports: No Symptoms Neurological: Reports: No Symptoms Psychiatric: Reports: No Symptoms - Patient Data Vitals - Most Recent: Last Vital Signs Temp 36.4 C 04/17/21 07:38 Pulse 75 04/17/21 09:39 Resp 18 04/17/21 07:38 BP 112/64 04/17/21 09:39 Pulse Ox 89 L 04/17/21 07:48 Weight - Most Recent: 109.497 kg I&O - Last 24 Hours: Intake & Output 04/16/21 04/17/21 04/17/21 22:59 06:59 14:59 Intake Total 1979 350 Output Total 700 Balance 1979 - Lab Results Last 24 Hours: Laboratory Results - last 24 hr 04/17/21 04/17/21 Range/Units 07:35 07:35 WBC 17.2 H (4.0-10.2) K/uL RBC 5.03 (4.33-5.41) M/uL Hgb 15.2 (13.1-16.8) g/dL Hct 44.5 (39.0-49.0) % MCV 88.5 (84.0-98.0) fL MCH 30.2 (28.2-33.3) pg MCHC 34.2 (31.7-36.0) g/dL RDW 12.8 (11.2-14.1) % Plt Count 327 (150-350) K/uL Neut % (Auto) 89.4 H (45.0-80.0) % Lymph % (Auto) 5.2 L (10.0-50.0) % [place] % (Auto) 4.8 (2.0-14.0) % Eos % (Auto) 0.5 (0.0-5.0) % Baso % (Auto) 0.1 (0.0-2.0) % Neut # (Auto) 15.36 H (1.40-7.00) K/uL Lymph # (Auto) 0.90 (0.50-3.50) K/uL [place] # (Auto) 0.82 (0.00-1.00) K/uL Eos # (Auto) 0.08 (0.00-0.50) K/uL Baso # (Auto) 0.01 (0.00-0.20) K/uL Sodium 135 L (136-145) mmol/L Potassium 4.8 (3.5-5.1) mmol/L Chloride 102 (98-107) mmol/L Carbon Dioxide 25.7 (21.0-32.0) mmol/L Anion Gap 12.1 (7-15) meq/L BUN 19 H (7-18) mg/dL Creatinine 0.93 (0.51-1.17) mg/dL Est Cr Clr Drug Dosing 92.67 mL/min Estimated GFR (MDRD) > 60 mL/min Glucose 102 H (70-99) mg/dL Calcium 8.7 (8.5-10.1) mg/dL Med Orders - Current: Current Medications Acetaminophen (Acetaminophen 325 Mg Tab) 650 mg PO Q4H PRN PRN Reason: Fever Greater Than 101/Pain Last Admin: 04/17/21 07:42 Dose: 650 mg Documented by: Albuterol (Albuterol 6.7 Gm Inhaler) 0 gm INH Q2H PRN PRN Reason: Shortness of Breath Albuterol/Ipratropium (Albuterol/Ipratropium 4 Gm Inhalation Berino) 0 gm INH QIDRT [facility] Last Admin: 04/17/21 11:45 Dose: 1 puff Documented by: Atorvastatin Calcium (Atorvastatin 10 Mg Tab) 10 mg PO BEDTIME [facility] Last Admin: 04/16/21 19:13 Dose: 10 mg Documented by: Azithromycin (Azithromycin 250 Mg Tab) 250 mg PO DAILY [facility] Last Admin: 04/17/21 07:41 Dose: 250 mg Documented by: Benzonatate (Benzonatate 100 Mg Cap) 200 mg PO TID [facility] Last Admin: 04/17/21 11:45 Dose: 200 mg Documented by: Bisacodyl (Bisacodyl 5 Mg Tab) 5 mg PO DAILY PRN PRN Reason: Constipation Calcium Carbonate/Glycine (Calcium Carbonate 500 Mg Tab.Chew) 1,000 mg PO Q2HR PRN PRN Reason: Indigestion Last Admin: 04/14/21 20:29 Dose: 1,000 mg Documented by: Cholecalciferol (Cholecalciferol (Vitamin D3) 5,000 Unit Tab) 5,000 unit PO DAILY [facility] Last Admin: 04/17/21 07:41 Dose: 5,000 unit Documented by: Dexamethasone (Dexamethasone 2 Mg Tab) 6 mg PO DAILY [facility] Stop: 04/19/21 08:01 Last Admin: 04/17/21 07:40 Dose: 6 mg Documented by: Enoxaparin Sodium (Enoxaparin 40 Mg/0.4 Ml Syringe) 40 mg SUBCUT DAILY [facility] Last Admin: 04/17/21 07:43 Dose: 40 mg Documented by: Lisinopril (Lisinopril 20 Mg Tab) 20 mg PO DAILY [facility] Last Admin: 04/17/21 07:40 Dose: 20 mg Documented by: Melatonin (Melatonin 3 Mg Tab) 6 mg PO BEDTIME PRN PRN Reason: Insomnia Metoprolol Succinate (Metoprolol Succinate 50 Mg Tab.Er) 50 mg PO DAILY [facility] Last Admin: 04/17/21 09:39 Dose: 50 mg Documented by: Ondansetron HCl (Ondansetron 4 Mg Tab.Dis) 4 mg PO Q4H PRN PRN Reason: Nausea/Vomiting Ondansetron HCl (Ondansetron 4 Mg/2 Ml Sdv) 4 mg IVPUSH Q4H PRN PRN Reason: Nausea/Vomiting Sodium Chloride (Sodium Chloride 0.9% 10 Ml Syringe) 10 ml FLUSH ASDIRECTED PRN PRN Reason: Keep Vein Open Last Admin: 04/16/21 11:57 Dose: 10 ml Documented by: Sodium Chloride (Sodium Chloride 0.65% Nasal Berino 45 Ml Bottle) 0 ml KAMRAN Q2H PRN PRN Reason: Nasal Dryness Last Admin: 04/12/21 11:31 Dose: 2 spray Documented by: Discontinued Medications Hydrocodone Bitart/Acetaminophen (Acetaminophen/Hydrocodone 325-5 Mg Tab) 1 tab PO Q4H PRN PRN Reason: Pain (moderate 4-6) Albuterol (Albuterol 0.083% 2.5 Mg/3 Ml Neb Soln) 2.5 mg NEB Q2H PRN PRN Reason: Shortness Of Breath/wheezing Last Admin: 04/12/21 21:41 Dose: 2.5 mg Documented by: Albuterol/Ipratropium (Albuterol/Ipratropium 3.0-0.5 Mg/3 Ml Neb Soln) 3 ml NEB BID [facility] Last Admin: 04/12/21 08:08 Dose: 3 ml Documented by: Albuterol/Ipratropium (Albuterol/Ipratropium 3.0-0.5 Mg/3 Ml Neb Soln) 3 ml NEB TID [facility] Last Admin: 04/13/21 17:28 Dose: 3 ml Documented by: Ascorbic Acid (Ascorbic Acid 500 Mg Tab) 500 mg PO BID [facility] Last Admin: 04/13/21 17:28 Dose: 500 mg Documented by: Azithromycin (Azithromycin 250 Mg Tab) 500 mg PO ONETIME ONE Stop: 04/11/21 08:57 Last Admin: 04/11/21 09:57 Dose: 500 mg Documented by: Dexamethasone (Dexamethasone 2 Mg Tab) 6 mg PO ONETIME ONE Stop: 04/09/21 21:49 Last Admin: 04/09/21 21:57 Dose: 6 mg Documented by: Sodium Chloride (Normal Saline) 1,000 mls @ 999 mls/hr IV ASDIRECTED [facility] Last Admin: 04/09/21 20:50 Dose: 999 mls/hr Documented by: Sodium Chloride (Normal Saline) 1,000 mls @ 999 mls/hr IV ASDIRECTED [facility] Last Admin: 04/09/21 21:50 Dose: 999 mls/hr Documented by: Remdesivir 200 mg/ Sodium (Chloride) 250 mls @ 250 mls/hr IV ONETIME ONE Stop: 04/09/21 22:48 Last Admin: 04/09/21 23:14 Dose: 250 mls/hr Documented by: Remdesivir 100 mg/ Sodium (Chloride) 100 mls @ 100 mls/hr IV Q24H [facility] Stop: 04/13/21 09:59 Remdesivir 100 mg/ Sodium (Chloride) 100 mls @ 100 mls/hr IV Q24H [facility] Stop: 04/13/21 21:59 Last Admin: 04/13/21 21:17 Dose: 100 mls/hr Documented by: Sodium Chloride (Normal Saline) 1,000 mls @ 250 mls/hr IV .BOLUS ONE Stop: 04/16/21 15:31 Last Admin: 04/16/21 11:52 Dose: 250 mls/hr Documented by: Ibuprofen (Ibuprofen 600 Mg Tab) 600 mg PO Q6H PRN PRN Reason: Pain (mild 1-3) Iopamidol (Iopamidol 755 Mg/Ml 100 Ml Bottle) 100 ml IVPUSH ONETIME ONE Stop: 04/09/21 21:53 Last Admin: 04/09/21 22:42 Dose: 100 ml Documented by: Metoprolol Succinate (Metoprolol Succinate 50 Mg Tab.Er) 200 mg PO DAILY [facility] Last Admin: 04/13/21 07:56 Dose: 200 mg Documented by: Metoprolol Succinate (Metoprolol Succinate 50 Mg Tab.Er) 100 mg PO DAILY [facility] Last Admin: 04/17/21 08:00 Dose: Not Given Documented by: Non-Formulary Medication (Metoprolol Succinate [Toprol Xl]) 200 mg PO DAILY [facility] Sodium Chloride (Sodium Chloride 0.9% 10 Ml Syringe) 30 ml FLUSH DAILY@2200 [facility] Stop: 04/13/21 22:01 Last Admin: 04/13/21 21:17 Dose: 30 ml Documented by: Zinc Gluconate (Zinc (Zinc Gluconate) 50 Mg Tab) 50 mg PO DAILY [facility] Last Admin: 04/13/21 07:56 Dose: 50 mg Documented by: - Exam Quality Assessment: Supplemental Oxygen, DVT Prophylaxis General: Alert, Oriented, Cooperative, No Acute Distress HEENT: Pupils Equal, Pupils Reactive, EOMI, Mucous Membr. Moist/[place] Neck: Supple Lungs: Clear to Auscultation, Normal Respiratory Effort Cardiovascular: Regular Rate, Regular Rhythm GI/Abdominal Exam: Normal Bowel Sounds, Non-Tender, No Organomegaly, No Distention (Male) Exam: Deferred Back Exam: No: Muscle Spasm Extremities: Normal Inspection, Normal Range of Motion, Normal Capillary Refill Skin: Warm, Dry Neurological: No New Focal Deficit Psy/Mental Status: Alert, Normal Affect, Normal Mood - Patient Data Lab Results Last 24 hrs: Laboratory Results - last 24 hr 04/17/21 04/17/21 Range/Units 07:35 07:35 WBC 17.2 H (4.0-10.2) K/uL RBC 5.03 (4.33-5.41) M/uL Hgb 15.2 (13.1-16.8) g/dL Hct 44.5 (39.0-49.0) % MCV 88.5 (84.0-98.0) fL MCH 30.2 (28.2-33.3) pg MCHC 34.2 (31.7-36.0) g/dL RDW 12.8 (11.2-14.1) % Plt Count 327 (150-350) K/uL Neut % (Auto) 89.4 H (45.0-80.0) % Lymph % (Auto) 5.2 L (10.0-50.0) % [place] % (Auto) 4.8 (2.0-14.0) % Eos % (Auto) 0.5 (0.0-5.0) % Baso % (Auto) 0.1 (0.0-2.0) % Neut # (Auto) 15.36 H (1.40-7.00) K/uL Lymph # (Auto) 0.90 (0.50-3.50) K/uL [place] # (Auto) 0.82 (0.00-1.00) K/uL Eos # (Auto) 0.08 (0.00-0.50) K/uL Baso # (Auto) 0.01 (0.00-0.20) K/uL Sodium 135 L (136-145) mmol/L Potassium 4.8 (3.5-5.1) mmol/L Chloride 102 (98-107) mmol/L Carbon Dioxide 25.7 (21.0-32.0) mmol/L Anion Gap 12.1 (7-15) meq/L BUN 19 H (7-18) mg/dL Creatinine 0.93 (0.51-1.17) mg/dL Est Cr Clr Drug Dosing 92.67 mL/min Estimated GFR (MDRD) > 60 mL/min Glucose 102 H (70-99) mg/dL Calcium 8.7 (8.5-10.1) mg/dL Result Diagrams: 04/17/21 07:35 04/17/21 07:35 Sepsis Event Note - Evaluation Sepsis Screening Result: No Definite Risk - Focused Exam Vital Signs: Vital Signs Temp Pulse Pulse Resp BP BP Pulse Ox 04/17/21 09:39 75 112/64 04/17/21 07:48 89 L 04/17/21 07:40 112/64 04/17/21 07:38 36.4 C 75 18 112/64 89 L - Problem List & Annotations (1) Acute respiratory disease due to COVID-19 virus SNOMED Code(s): 601401017, 830520338 Code(s): U07.1 - COVID-19; J06.9 - ACUTE UPPER RESPIRATORY INFECTION, UNSPECIFIED Status: Acute Priority: High Current Visit: Yes Annotation/Comment:: Continues to need supplemental oxygen. Trial on 3.5L today. Dexamethasone/Combivent and PRN Albuterol MDI (2) Hypoxia SNOMED Code(s): 049108793 Code(s): R09.02 - HYPOXEMIA Status: Acute Priority: High Current Visit: Yes Annotation/Comment:: Incentive spirometry. Combivent/dexamethasone. Patient proning. Stable on 3.5 NC O2 O2 sats vary from mid 80s with activity to 90-93% when resting (3) Thrombocytopenia associated with COVID-19 SNOMED Code(s): 987126541 Code(s): U07.1 - COVID-19; D69.59 - OTHER SECONDARY THROMBOCYTOPENIA Status: Resolved Priority: Medium Current Visit: Yes Annotation/Comment:: 04/11/2021 improved, above 150 now, continue to monitor. (4) Hyperlipidemia SNOMED Code(s): 35813155 Code(s): E78.5 - HYPERLIPIDEMIA, UNSPECIFIED Status: Chronic Priority: Low Current Visit: No Qualifiers: Hyperlipidemia type: unspecified Qualified Code(s): E78.5 - Hyperlipidemia, unspecified Annotation/Comment:: Continue home medication (5) HTN (hypertension) SNOMED Code(s): 41245079 Code(s): I10 - ESSENTIAL (PRIMARY) HYPERTENSION Status: Chronic Priority: Low Current Visit: No Qualifiers: Hypertension type: primary hypertension Qualified Code(s): I10 - Essential (primary) hypertension Annotation/Comment:: Lisinopril initiated due to elevated readings and bradycardia (patient on high dose beta anibal). Metoprolol dose being reduced. Metoprolol held this morning due to hypotension. Will give dose later today if BP rebounds. (6) Obesity SNOMED Code(s): 531250164, 089086678 Code(s): E66.9 - OBESITY, UNSPECIFIED Status: Acute Priority: Low Current Visit: Yes Qualifiers: Obesity type: unspecified obesity type Obesity classification: unspecified obesity classification Serious obesity comorbidity presence: without serious comorbidity Qualified Code(s): E66.9 - Obesity, unspecified Annotation/Comment:: Diet/excercise recommendations reviewed with patient. - Problem List Review Problem List Initiated/Reviewed/Updated: Yes - My Orders Last 24 Hours: My Active Orders 04/17/21 05:11 Chest 2V [CR] AM 04/17/21 09:30 Metoprolol Succinate [Toprol XL] 50 mg PO DAILY - Assessment Assessment:: Covid 19 viral pneumonia acute respiratory failure with hypoxia 2/2 above: - currently requiring 5L supplemental oxygen to maintain saturations >90% Plan: - Remdesivir finished and continue decadron for 10 days total - wean oxygen as tolerated - DC vitamin C and zinc - convert nebulizers to MDIs per COVID 19 recommendations. Essential HTN: - plan to wean off of toprol XL by decreasing to 100mg once daily for one week then 50 mg once daily (04/20/21) for one week then stop - start lisinopril 20mg once daily. - consider adding HCTZ if blood pressure is not well controlled at the end of toprol XL taper Chronic conditions: - mixed HLD: continue statin - severe obesity with BMI 35-39 on admit VTE: Lovenox 40mg subcut qd Sepsis: No signs of sepsis at this time. Continue to monitor. Code Status: Full Code. 04/17 Elevated white count suspected to be secondary to steroids. Patient afebrile. Covered with Zithromax. Mild elevation BUN/Cr improved with small fluid bolus. Repeat chest xray shows improvement of Covid pneumonia. - Plan Plan:: 04/12/2021 As above. Continue Combivent, Albuterol, decadron with supplemental oxygen. Continue current medications for chronic hypertension and hyperlipidemia as they are stable. Continue prone position, continue Lovenox prophylaxis for dvt Goal for discharge has been supplemental O2 at 3L NC. Patient is not quite there yet, currently on 3.5. Continues to desat into mid 80s with activity. However overall he is trending in positive direction. Chest xray also showing improvement. Will aim for discharge tomorrow with patient continuing on home oxygen with close follow up by PCP. Patient very agreeable with this and would like to be able to go home.
[2021-04-17] MEDS: atorvaSTATin 10 MG Tab PO SCH (20:25)
[2021-04-18 08:12] LABS: ANION GAP 10.1 meq/L (7-15); CHLORIDE,CL 101 mmol/L (98-107); SODIUM,NA 137 mmol/L (136-145)
[2021-04-18 08:30] VITALS: BP 94/63; PULSE 87
[2021-04-18] MEDS: Enoxaparin 40 MG/0.4 ML Syringe SUBCUT SCH (08:30)
[2021-04-18] MEDS: Albuterol/Ipratropium 4 GM Inhalation Spray INH SCH (08:30)
[2021-04-18] MEDS: Benzonatate 100 MG Cap PO SCH (08:30)
[2021-04-18] MEDS: Dexamethasone 2 MG Tab PO SCH (08:31)
[2021-04-18] MEDS: Metoprolol Succinate 50 MG Tab.ER PO SCH (08:31)
[2021-04-18] MEDS: Lisinopril 20 MG Tab PO SCH (08:31)
[2021-04-18] MEDS: Cholecalciferol (Vitamin D3) 5,000 UNIT Tab PO SCH (08:32)
[2021-04-18] MEDS: Azithromycin 250 MG Tab PO SCH (08:32)
--- NOTE | 2021-04-18 10:15 | PCM.PN ---
- General Info Date of Service: 04/18/21 Admission Dx/Problem (Free Text): Admission Diagnosis/Problem Admission Diagnosis/Problem Acute respiratory failure with hypoxemia due to COVID19 Subjective Update: Doing better and has weaned oxygen to 3 liters. Feeling better from the Combivent inhaler. Ready to go home. Working on incentive spirometry and other exercises then resting in prone position. - Review of Systems General: Reports: No Symptoms HEENT: Reports: No Symptoms Pulmonary: Reports: Shortness of Breath (impoving), Cough Cardiovascular: Reports: No Symptoms Gastrointestinal: Reports: No Symptoms Genitourinary: Reports: No Symptoms Musculoskeletal: Reports: No Symptoms Skin: Reports: No Symptoms Neurological: Reports: No Symptoms Psychiatric: Reports: No Symptoms - Patient Data Vitals - Most Recent: Last Vital Signs Temp 36.6 C 04/18/21 08:00 Pulse 87 04/18/21 08:31 Resp 16 04/18/21 08:00 BP 94/63 04/18/21 08:31 Pulse Ox 93 L 04/18/21 08:00 Weight - Most Recent: 109.497 kg I&O - Last 24 Hours: Intake & Output 04/17/21 04/18/21 04/18/21 22:59 06:59 14:59 Intake Total 2110 716 Balance 2110 716 Lab Results Last 24 Hours: Laboratory Results - last 24 hr 04/18/21 04/18/21 04/18/21 Range/Units 07:30 07:35 07:35 WBC 18.0 H (4.0-10.2) K/uL RBC 5.09 (4.33-5.41) M/uL Hgb 15.4 (13.1-16.8) g/dL Hct 45.7 (39.0-49.0) % MCV 89.8 (84.0-98.0) fL MCH 30.3 (28.2-33.3) pg MCHC 33.7 (31.7-36.0) g/dL RDW 13.0 (11.2-14.1) % Plt Count 330 (150-350) K/uL Neut % (Auto) 88.3 H (45.0-80.0) % Lymph % (Auto) 6.9 L (10.0-50.0) % Trigg % (Auto) 4.0 (2.0-14.0) % Eos % (Auto) 0.6 (0.0-5.0) % Baso % (Auto) 0.2 (0.0-2.0) % Neut # (Auto) 15.88 H (1.40-7.00) K/uL Lymph # (Auto) 1.25 (0.50-3.50) K/uL Trigg # (Auto) 0.72 (0.00-1.00) K/uL Eos # (Auto) 0.11 (0.00-0.50) K/uL Baso # (Auto) 0.03 (0.00-0.20) K/uL Sodium 137 (136-145) mmol/L Potassium 4.4 (3.5-5.1) mmol/L Chloride 101 (98-107) mmol/L Carbon Dioxide 25.9 (21.0-32.0) mmol/L Anion Gap 10.1 (7-15) meq/L BUN 16 (7-18) mg/dL Creatinine 1.02 (0.51-1.17) mg/dL Est Cr Clr Drug Dosing 84.49 mL/min Estimated GFR (MDRD) > 60 mL/min Glucose 94 (70-99) mg/dL Lactic Acid 1.9 (0.4-2.0) mmol/L Calcium 8.9 (8.5-10.1) mg/dL C-Reactive Protein 4.7 H (<=0.9) mg/dL Med Orders - Current: Current Medications Acetaminophen (Acetaminophen 325 Mg Tab) 650 mg PO Q4H PRN PRN Reason: Fever Greater Than 101/Pain Last Admin: 04/17/21 20:25 Dose: 650 mg Documented by: Albuterol (Albuterol 6.7 Gm Inhaler) 0 gm INH Q2H PRN PRN Reason: Shortness of Breath Albuterol/Ipratropium (Albuterol/Ipratropium 4 Gm Inhalation Gillespie) 0 gm INH QIDRT [facility] Last Admin: 04/18/21 08:30 Dose: 1 puff Documented by: Atorvastatin Calcium (Atorvastatin 10 Mg Tab) 10 mg PO BEDTIME [facility] Last Admin: 04/17/21 20:25 Dose: 10 mg Documented by: Azithromycin (Azithromycin 250 Mg Tab) 250 mg PO DAILY [facility] Last Admin: 04/18/21 08:32 Dose: 250 mg Documented by: Benzonatate (Benzonatate 100 Mg Cap) 200 mg PO TID [facility] Last Admin: 04/18/21 08:30 Dose: 200 mg Documented by: Bisacodyl (Bisacodyl 5 Mg Tab) 5 mg PO DAILY PRN PRN Reason: Constipation Calcium Carbonate/Glycine (Calcium Carbonate 500 Mg Tab.Chew) 1,000 mg PO Q2HR PRN PRN Reason: Indigestion Last Admin: 04/14/21 20:29 Dose: 1,000 mg Documented by: Cholecalciferol (Cholecalciferol (Vitamin D3) 5,000 Unit Tab) 5,000 unit PO DAILY [facility] Last Admin: 04/18/21 08:32 Dose: 5,000 unit Documented by: Dexamethasone (Dexamethasone 2 Mg Tab) 6 mg PO DAILY [facility] Stop: 04/19/21 08:01 Last Admin: 04/18/21 08:31 Dose: 6 mg Documented by: Enoxaparin Sodium (Enoxaparin 40 Mg/0.4 Ml Syringe) 40 mg SUBCUT DAILY [facility] Last Admin: 04/18/21 08:30 Dose: 40 mg Documented by: Lisinopril (Lisinopril 20 Mg Tab) 20 mg PO DAILY [facility] Last Admin: 04/18/21 08:31 Dose: 20 mg Documented by: Melatonin (Melatonin 3 Mg Tab) 6 mg PO BEDTIME PRN PRN Reason: Insomnia Metoprolol Succinate (Metoprolol Succinate 50 Mg Tab.Er) 50 mg PO DAILY [facility] Last Admin: 04/18/21 08:31 Dose: 50 mg Documented by: Ondansetron HCl (Ondansetron 4 Mg Tab.Dis) 4 mg PO Q4H PRN PRN Reason: Nausea/Vomiting Ondansetron HCl (Ondansetron 4 Mg/2 Ml Sdv) 4 mg IVPUSH Q4H PRN PRN Reason: Nausea/Vomiting Sodium Chloride (Sodium Chloride 0.9% 10 Ml Syringe) 10 ml FLUSH ASDIRECTED PRN PRN Reason: Keep Vein Open Last Admin: 04/16/21 11:57 Dose: 10 ml Documented by: Sodium Chloride (Sodium Chloride 0.65% Nasal Gillespie 45 Ml Bottle) 0 ml KAMRAN Q2H PRN PRN Reason: Nasal Dryness Last Admin: 04/12/21 11:31 Dose: 2 spray Documented by: Discontinued Medications Hydrocodone Bitart/Acetaminophen (Acetaminophen/Hydrocodone 325-5 Mg Tab) 1 tab PO Q4H PRN PRN Reason: Pain (moderate 4-6) Albuterol (Albuterol 0.083% 2.5 Mg/3 Ml Neb Soln) 2.5 mg NEB Q2H PRN PRN Reason: Shortness Of Breath/wheezing Last Admin: 04/12/21 21:41 Dose: 2.5 mg Documented by: Albuterol/Ipratropium (Albuterol/Ipratropium 3.0-0.5 Mg/3 Ml Neb Soln) 3 ml NEB BID [facility] Last Admin: 04/12/21 08:08 Dose: 3 ml Documented by: Albuterol/Ipratropium (Albuterol/Ipratropium 3.0-0.5 Mg/3 Ml Neb Soln) 3 ml NEB TID [facility] Last Admin: 04/13/21 17:28 Dose: 3 ml Documented by: Ascorbic Acid (Ascorbic Acid 500 Mg Tab) 500 mg PO BID [facility] Last Admin: 04/13/21 17:28 Dose: 500 mg Documented by: Azithromycin (Azithromycin 250 Mg Tab) 500 mg PO ONETIME ONE Stop: 04/11/21 08:57 Last Admin: 04/11/21 09:57 Dose: 500 mg Documented by: Dexamethasone (Dexamethasone 2 Mg Tab) 6 mg PO ONETIME ONE Stop: 04/09/21 21:49 Last Admin: 04/09/21 21:57 Dose: 6 mg Documented by: Sodium Chloride (Normal Saline) 1,000 mls @ 999 mls/hr IV ASDIRECTED [facility] Last Admin: 04/09/21 20:50 Dose: 999 mls/hr Documented by: Sodium Chloride (Normal Saline) 1,000 mls @ 999 mls/hr IV ASDIRECTED [facility] Last Admin: 04/09/21 21:50 Dose: 999 mls/hr Documented by: Remdesivir 200 mg/ Sodium (Chloride) 250 mls @ 250 mls/hr IV ONETIME ONE Stop: 04/09/21 22:48 Last Admin: 04/09/21 23:14 Dose: 250 mls/hr Documented by: Remdesivir 100 mg/ Sodium (Chloride) 100 mls @ 100 mls/hr IV Q24H [facility] Stop: 04/13/21 09:59 Remdesivir 100 mg/ Sodium (Chloride) 100 mls @ 100 mls/hr IV Q24H [facility] Stop: 04/13/21 21:59 Last Admin: 04/13/21 21:17 Dose: 100 mls/hr Documented by: Sodium Chloride (Normal Saline) 1,000 mls @ 250 mls/hr IV .BOLUS ONE Stop: 04/16/21 15:31 Last Admin: 04/16/21 11:52 Dose: 250 mls/hr Documented by: Ibuprofen (Ibuprofen 600 Mg Tab) 600 mg PO Q6H PRN PRN Reason: Pain (mild 1-3) Iopamidol (Iopamidol 755 Mg/Ml 100 Ml Bottle) 100 ml IVPUSH ONETIME ONE Stop: 04/09/21 21:53 Last Admin: 04/09/21 22:42 Dose: 100 ml Documented by: Metoprolol Succinate (Metoprolol Succinate 50 Mg Tab.Er) 200 mg PO DAILY [facility] Last Admin: 04/13/21 07:56 Dose: 200 mg Documented by: Metoprolol Succinate (Metoprolol Succinate 50 Mg Tab.Er) 100 mg PO DAILY [facility] Last Admin: 04/17/21 08:00 Dose: Not Given Documented by: Non-Formulary Medication (Metoprolol Succinate [Toprol Xl]) 200 mg PO DAILY [facility] Sodium Chloride (Sodium Chloride 0.9% 10 Ml Syringe) 30 ml FLUSH DAILY@2200 [facility] Stop: 04/13/21 22:01 Last Admin: 04/13/21 21:17 Dose: 30 ml Documented by: Zinc Gluconate (Zinc (Zinc Gluconate) 50 Mg Tab) 50 mg PO DAILY [facility] Last Admin: 04/13/21 07:56 Dose: 50 mg Documented by: - Exam Quality Assessment: Supplemental Oxygen General: Alert HEENT: Mucous Membr. Moist/[place] Neck: Supple Lungs: Clear to Auscultation, Normal Respiratory Effort Cardiovascular: Regular Rate, Regular Rhythm GI/Abdominal Exam: Normal Bowel Sounds, Soft, Non-Tender (Male) Exam: Deferred Extremities: Normal Inspection, Normal Range of Motion, No Pedal Edema, Normal Capillary Refill Skin: Warm, Dry, Intact Neurological: No New Focal Deficit Psy/Mental Status: Alert, Normal Affect, Normal Mood - Patient Data Lab Results Last 24 hrs: Laboratory Results - last 24 hr 04/18/21 04/18/2121 Range/Units 07:30 07:35 07:35 WBC 18.0 H (4.0-10.2) K/uL RBC 5.09 (4.33-5.41) M/uL Hgb 15.4 (13.1-16.8) g/dL Hct 45.7 (39.0-49.0) % MCV 89.8 (84.0-98.0) fL MCH 30.3 (28.2-33.3) pg MCHC 33.7 (31.7-36.0) g/dL RDW 13.0 (11.2-14.1) % Plt Count 330 (150-350) K/uL Neut % (Auto) 88.3 H (45.0-80.0) % Lymph % (Auto) 6.9 L (10.0-50.0) % Trigg % (Auto) 4.0 (2.0-14.0) % Eos % (Auto) 0.6 (0.0-5.0) % Baso % (Auto) 0.2 (0.0-2.0) % Neut # (Auto) 15.88 H (1.40-7.00) K/uL Lymph # (Auto) 1.25 (0.50-3.50) K/uL Trigg # (Auto) 0.72 (0.00-1.00) K/uL Eos # (Auto) 0.11 (0.00-0.50) K/uL Baso # (Auto) 0.03 (0.00-0.20) K/uL Sodium 137 (136-145) mmol/L Potassium 4.4 (3.5-5.1) mmol/L Chloride 101 (98-107) mmol/L Carbon Dioxide 25.9 (21.0-32.0) mmol/L Anion Gap 10.1 (7-15) meq/L BUN 16 (7-18) mg/dL Creatinine 1.02 (0.51-1.17) mg/dL Est Cr Clr Drug Dosing 84.49 mL/min Estimated GFR (MDRD) > 60 mL/min Glucose 94 (70-99) mg/dL Lactic Acid 1.9 (0.4-2.0) mmol/L Calcium 8.9 (8.5-10.1) mg/dL C-Reactive Protein 4.7 H (<=0.9) mg/dL Result Diagrams: 04/18/21 07:30 04/18/21 07:35 Sepsis Event Note - Evaluation Sepsis Screening Result: No Definite Risk - Focused Exam Vital Signs: Vital Signs Temp Pulse Pulse Resp BP BP Pulse Ox 04/18/21 08:31 87 94/63 04/18/21 08:00 36.6 C 87 16 94/63 93 L - Problem List & Annotations (1) Acute respiratory disease due to COVID-19 virus SNOMED Code(s): 320422446, 479056916 Code(s): U07.1 - COVID-19; J06.9 - ACUTE UPPER RESPIRATORY INFECTION, UNSPECIFIED Status: Acute Priority: High Current Visit: Yes Annotation/Comment:: Continues to need supplemental oxygen. Has weaned down to 3 liters now and ready to go home. Dexamethasone x 2 more days. Also home with Combivent. (2) Hypoxia SNOMED Code(s): 335066082 Code(s): R09.02 - HYPOXEMIA Status: Acute Priority: High Current Visit: Yes Annotation/Comment:: Incentive spirometry. Combivent/dexamethasone. Patient proning. Stable ob 3 liters of oxygen/NC. O2 sats vary from mid 80s with activity to 90-93% when resting. (3) Obesity SNOMED Code(s): 495731182, 831197519 Code(s): E66.9 - OBESITY, UNSPECIFIED Status: Acute Priority: Low Current Visit: Yes Qualifiers: Obesity type: unspecified obesity type Obesity classification: unspecified obesity classification Serious obesity comorbidity presence: without serious comorbidity Qualified Code(s): E66.9 - Obesity, unspecified Annotation/Comment:: Diet/excercise recommendations reviewed with patient. (4) Thrombocytopenia associated with COVID-19 SNOMED Code(s): 482863341 Code(s): U07.1 - COVID-19; D69.59 - OTHER SECONDARY THROMBOCYTOPENIA Status: Resolved Priority: Medium Current Visit: Yes Annotation/Comment:: 04/18/21 330, resolved (5) HTN (hypertension) SNOMED Code(s): 89295450 Code(s): I10 - ESSENTIAL (PRIMARY) HYPERTENSION Status: Chronic Priority: Low Current Visit: No Qualifiers: Hypertension type: primary hypertension Qualified Code(s): I10 - Essential (primary) hypertension Annotation/Comment:: Lisinopril initiated due to elevated readings and bradycardia (patient on high dose beta anibal). Metoprolol dose being reduced. Currently on Metroprolol XL 50mg qd until 04/20/2021, then stop. Will send home on current dose of Lisinopril 20mg po qd and then have PCP monitor BP and manage. Will have PCP consider adding HCTZ if blood pressure is not well controlled at the end of Toprol XL taper. (6) Hyperlipidemia SNOMED Code(s): 49096824 Code(s): E78.5 - HYPERLIPIDEMIA, UNSPECIFIED Status: Chronic Priority: Low Current Visit: No Qualifiers: Hyperlipidemia type: unspecified Qualified Code(s): E78.5 - Hyperlipidemia, unspecified Annotation/Comment:: Continue home medication - Problem List Review Problem List Initiated/Reviewed/Updated: Yes - Plan Plan:: - Continue Dexamethasone for 2 more days to total 10 days. - Wean oxygen as tolerated at home - Patient to take Aspirin daily for next 4-6 weeks - Take Metoprolol XL 50mg po qd until 04/20/2021 Code Status: Full Code.
== END 2021-04-18 12:15 | disposition home or self-care (01) | DRG 177 ==
LOC: LL.ED 20:13 → LL.MS 22:00
PROVIDERS: ADMIT Physician Assistant; ATTEND Physician Assistant
PROC: 3E0DX3Z Introduction of Anti-inflammatory into Mouth and Pharynx, External Approach (ICD-10-PCS; principal; 2021-04-09)
PROC: 8E0ZXY6 Isolation (ICD-10-PCS; principal; 2021-04-09)
PROC: XW033E5 Introduction of Remdesivir Anti-infective into Peripheral Vein, Percutaneous Approach, New Technology Group 5 (ICD-10-PCS; principal; 2021-04-09)
DX: U07.1 COVID-19 (principal); J12.82 Pneumonia due to coronavirus disease 2019; J96.01 Acute respiratory failure with hypoxia; D69.59 Other secondary thrombocytopenia; E66.9 Obesity, unspecified; E78.5 Hyperlipidemia, unspecified; J06.9 Acute upper respiratory infection, unspecified; I10 Essential (primary) hypertension; E78.2 Mixed hyperlipidemia; D72.829 Elevated white blood cell count, unspecified; T38.0X5A Adverse effect of glucocorticoids and synthetic analogues, initial encounter
CPT/HCPCS: 36415; 71045; 71046; 71275; 80048; 80053; 81003; 82248; 83605; 83735; 84484; 85025; 85379; 86140; 87426; 93005; 94640; 94761; 99285-25; A9270-GY; J1650; J7030; J7050; J7613-GY; J7620-GY; J8540; Q9967

== ENCOUNTER 2021-04-26 14:50 | Emergency (ER) | payer OTHER ==
[2021-04-26] MEDS ORDERED: Sodium Chloride 0.9% 10 ML Syringe FLUSH PRN (15:17)
[2021-04-26] MEDS ORDERED: Albuterol 0.083% 2.5 MG/3 ML Neb Soln NEB ONE (15:55)
[2021-04-26 15:57] LABS: O2 DELIVERY DEVICE NASAL CANNULA
[2021-04-26 15:58] LABS: PCO2 ARTERIAL 30 mmHG (35-45)
[2021-04-26 15:59] LABS: BASE EXCESS ARTERIAL -1 mmol/L (-2-3); BICARBONATE,ARTERIAL 21.6 mmol/L (22-26); O2 SATURATION ARTERIAL 89 % (95-98); PO2 ARTERIAL 51 mmHG (80-105)
[2021-04-26 16:12] LABS: ANION GAP 12.4 meq/L (7-15); CHLORIDE,CL 98 mmol/L (98-107); SODIUM,NA 136 mmol/L (136-145)
--- NOTE | 2021-04-26 16:19 | EDM.PDOC ---
ED HPI GENERAL MEDICAL PROBLEM - General Chief Complaint: Respiratory Problem Stated Complaint: hyoxia, SOB, long COVID Time Seen by Provider: 04/26/21 15:50 Source of Information: Reports: Patient, Family, Old Records History Limitations: Reports: No Limitations - History of Present Illness INITIAL COMMENTS - FREE TEXT/NARRATIVE: Patient returns to the ED following discharge on 04/18 for increased shortness of breath. He is an unvaccinated male that was exposed to COVID 19 on and became positive, arrived at ED with hypoxia and was admitted for IV remdesivir and decadron. He was sent home on 04/18 on 3 lmp nasal cannula of oxygen. He has been struggling with sats in the mid 80s with any exertion at home since discharge. over the last 3 days he has significantly declined. He has been using his combivent and albuterol inhalers ( did not get a nebulizer) and sleep prone. States he feels like he is " losing ground" after he tries to lay prone feeling more short of breath, slight confusion, minimal appetite adn continued cough. They tried to get into the clinic yesterday and today but was finally given instruction for an outpatient x-ray here. He was taken to x-ray in a wheelchair and had oxygen on. Sats were 88% on his 3 lpm and chest x-ray was significantly worse so became an ER patient. Onset Date: 04/09/21 Duration: Getting Worse Location: Reports: Chest Associated Symptoms: Reports: Cough - Related Data Allergies Allergy/AdvReac Type Severity Reaction Status Date / Time No Known Allergies Allergy Verified 04/26/21 15:22 Home Meds: Home Meds atorvaSTATin [Lipitor] 10 mg PO BEDTIME 04/09/21 [History] Albuterol/Ipratropium [Combivent Respimat] 2 inh INH QIDRT #1 inhaler 04/18/21 [Rx] Aspirin 81 mg PO DAILY #30 tab.chew 04/18/21 [Rx] Benzonatate [Tessalon Perles] 200 mg PO TID #60 cap 04/18/21 [Rx] Cholecalciferol (Vitamin D3) [Vitamin D3] 5,000 unit PO DAILY tablet 04/18/21 [Rx] Metoprolol Succinate [Toprol XL 50mg] 50 mg PO DAILY #14 tab.er 04/18/21 [Rx] Ondansetron [Zofran ODT] 4 mg PO Q4H PRN #15 tab.dis 04/18/21 [Rx] lisinopriL [Prinivil] 20 mg PO DAILY #30 tablet 04/18/21 [Rx] Past Medical History HEENT History: Reports: Impaired Vision Cardiovascular History: Reports: High Cholesterol, Hypertension Respiratory History: Reports: None, Other (See Below) (covid 19 04/09/2021 with need for home O2 after remdesivir and decadron) Gastrointestinal History: Reports: None Genitourinary History: Reports: None Musculoskeletal History: Reports: Fracture Neurological History: Reports: None Psychiatric History: Reports: None Endocrine/Metabolic History: Reports: Obesity/BMI 30+ Other Endocrine/Metabolic History: Hx mildly elevated glucose levels with normal A1c Hematologic History: Reports: None Immunologic History: Reports: None Oncologic (Cancer) History: Reports: None Dermatologic History: Reports: None - Past Surgical History HEENT Surgical History: Reports: Other (See Below) Other HEENT Surgeries/Procedures: Cyst removal on neck Social & Family History - Caffeine Use Caffeine Use: Reports: Coffee - Alcohol Use Alcohol Use History: Yes - Recreational Drug Use Recreational Drug Use: No Drug Use in Last 12 Months: No ED ROS GENERAL - Review of Systems Review Of Systems: See Below Constitutional: Reports: Fever, Chills, Malaise, Weakness, Fatigue, Decreased Appetite, Weight Loss HEENT: Reports: No Symptoms. Denies: Rhinitis, Sinus Problem, Throat Pain, Throat Swelling Respiratory: Reports: Shortness of Breath, Wheezing, Pleuritic Chest Pain, Cough. Denies: Hemoptysis Cardiovascular: Reports: Dyspnea on Exertion, Lightheadedness, Orthopnea Endocrine: Reports: Fatigue GI/Abdominal: Reports: No Symptoms. Denies: Abdominal Pain, Diarrhea, Nausea, Vomiting Musculoskeletal: Reports: No Symptoms Skin: Reports: No Symptoms Neurological: Reports: Confusion, Difficulty Walking (due to extreme fatigue) Psychiatric: Reports: Confusion ED EXAM, GENERAL - Physical Exam Exam: See Below Exam Limited By: No Limitations General Appearance: Alert, Moderate Distress Eye Exam: Bilateral Eye: EOMI, Normal Inspection, PERRL Ears: Normal External Exam, Hearing Grossly Normal Nose: Normal Inspection Throat/Mouth: Normal Inspection, Normal Lips, Normal Voice, No Airway Compromise Head: Atraumatic Neck: Normal Inspection, Non-Tender, Full Range of Motion Respiratory/Chest: Respiratory Distress, Decreased Breath Sounds, Wheezing, Accessory Muscle Use, Splinting, Prolonged Expiration Cardiovascular: Regular Rate, Rhythm, No Murmur GI/Abdominal: Normal Bowel Sounds, Soft, Non-Tender. No: Rigid, Rebound, Tender Rectal (Males) Exam: Normal Exam Extremities: Normal Inspection, Normal Range of Motion, Non-Tender, No Pedal [place] Neurological: Alert, Oriented, CN II-XII Intact, No Motor/Sensory Deficits #1 Interpretation EKG Date: 04/26/21 Time: 16:08 Rhythm: NSR Rate (Beats/Min): 110 [place]: Normal P-Wave: Present QRS: Normal ST-T: Normal QT: Normal Course - Vital Signs Last Recorded V/S: Last Vital Signs Temp 36.4 C 04/26/21 14:55 Pulse 109 H 04/26/21 19:15 Resp 28 H 04/26/21 19:59 BP 135/92 H 04/26/21 19:59 Pulse Ox 94 L 04/26/21 19:59 - Orders/Labs/Meds Orders: Active Orders 24 hr Category Date Time Status Cardiac Monitoring [RC] . DIRECTED Care 04/26/21 15:17 Active Oxygen Therapy [RC] ASDIRECTED Care 04/26/21 15:23 Active Peripheral IV Care [RC] . DIRECTED Care 04/26/21 15:19 Active RT Aerosol Therapy [RC] ASDIRECTED Care 04/26/21 15:55 Active PE Chest [Ang Chest] [CT] Stat Exams 04/26/21 16:27 Taken CULTURE BLOOD [BC] Stat Lab 04/26/21 15:30 Received CULTURE BLOOD [BC] Stat Lab 04/26/21 15:35 Received Heparin Sodium/0.45% NaCl [Heparin 25,000 Units in 1/2 Med 04/26/21 19:00 Active NS 500 ML] 500 ml IV TITRATE Sodium Chloride 0.9% [Saline Flush] Med 04/26/21 15:17 Active 10 ml FLUSH ASDIRECTED PRN VANCOmycin 2 GM/400 ML 2 gm Med 04/26/21 21:04 Ordered Premix Bag 1 bag IV STAT Blood Culture x2 Reflex Set [OM.PC] Stat Oth 04/26/21 15:17 Ordered Peripheral IV Insertion Adult [OM.PC] Routine Oth 04/26/21 15:17 Ordered RT Oxygen High Humidity High Flow [RESPCARE] Stat Oth 04/26/21 15:55 Ordered Medication Orders Heparin Sodium/Sodium Chloride (Heparin 25,000 Units In 1/2 Ns 500 Ml) 500 mls @ 25.909 mls/hr IV TITRATE MAXINE; Protocol Last Admin: 04/26/21 19:35 Dose: 12 units/kg/hr, 25.909 mls/hr Documented by: AZRA Cosigned by: TAVIA Vancomycin HCl 2 gm/ Premix 400 mls @ 200 mls/hr IV STAT ONE Stop: 04/26/21 23:03 Sodium Chloride (Sodium Chloride 0.9% 10 Ml Syringe) 10 ml FLUSH ASDIRECTED PRN PRN Reason: Keep Vein Open Labs: Laboratory Tests 04/26/21 04/26/21 04/26/21 Range/Units 15:30 15:30 15:30 WBC 14.0 H (4.0-10.2) K/uL RBC 4.82 (4.33-5.41) M/uL Hgb 14.9 (13.1-16.8) g/dL Hct 43.8 (39.0-49.0) % MCV 90.9 (84.0-98.0) fL MCH 30.9 (28.2-33.3) pg MCHC 34.0 (31.7-36.0) g/dL RDW 13.3 (11.2-14.1) % Plt Count 266 (150-350) K/uL Neut % (Auto) 79.5 (45.0-80.0) % Lymph % (Auto) 7.5 L (10.0-50.0) % [place] % (Auto) 12.3 (2.0-14.0) % Eos % (Auto) 0.5 (0.0-5.0) % Baso % (Auto) 0.2 (0.0-2.0) % Neut # (Auto) 11.13 H (1.40-7.00) K/uL Lymph # (Auto) 1.05 (0.50-3.50) K/uL [place] # (Auto) 1.73 H (0.00-1.00) K/uL Eos # (Auto) 0.07 (0.00-0.50) K/uL Baso # (Auto) 0.03 (0.00-0.20) K/uL D-Dimer, Quantitative > 5000 H (0-400) ng/mL ABG pH (7.35-7.45) ABG pCO2 (35-45) mmHG ABG pO2 (80-105) mmHG ABG HCO3 (22-26) mmol/L ABG Total CO2 (23-27) mmol/L ABG O2 Saturation (95-98) % ABG Base Excess (-2-3) mmol/L O2 Delivery Device Blood Gas Comments Sodium 136 (136-145) mmol/L Potassium 4.7 (3.5-5.1) mmol/L Chloride 98 (98-107) mmol/L Carbon Dioxide 25.6 (21.0-32.0) mmol/L Anion Gap 12.4 (7-15) meq/L BUN 16 (7-18) mg/dL Creatinine 0.82 (0.51-1.17) mg/dL Est Cr Clr Drug Dosing TNP Estimated GFR (MDRD) > 60 mL/min Glucose 132 H (70-99) mg/dL Lactic Acid (0.4-2.0) mmol/L Calcium 9.4 (8.5-10.1) mg/dL Total Bilirubin 0.6 (0.2-1.0) mg/dL AST 22 (15-37) U/L ALT 54 (12-78) U/L Alkaline Phosphatase 81 (46-116) IU/L Troponin I High Sens 28 (<=76) ng/L C-Reactive Protein 68.4 H (<=0.9) mg/dL Total Protein 7.9 (6.4-8.2) g/dL Albumin 2.8 L (3.4-5.0) g/dL Influenza Type A RNA (NEGATIVE) RSV RNA (INAAT) (NEGATIVE) Influenza Type B RNA (NEGATIVE) SARS-CoV-2 RNA (TON) (NEGATIVE) 04/26/21 04/26/21 04/26/21 Range/Units 15:30 15:50 16:08 WBC (4.0-10.2) K/uL RBC (4.33-5.41) M/uL Hgb (13.1-16.8) g/dL Hct (39.0-49.0) % MCV (84.0-98.0) fL MCH (28.2-33.3) pg MCHC (31.7-36.0) g/dL RDW (11.2-14.1) % Plt Count (150-350) K/uL Neut % (Auto) (45.0-80.0) % Lymph % (Auto) (10.0-50.0) % [place] % (Auto) (2.0-14.0) % Eos % (Auto) (0.0-5.0) % Baso % (Auto) (0.0-2.0) % Neut # (Auto) (1.40-7.00) K/uL Lymph # (Auto) (0.50-3.50) K/uL [place] # (Auto) (0.00-1.00) K/uL Eos # (Auto) (0.00-0.50) K/uL Baso # (Auto) (0.00-0.20) K/uL D-Dimer, Quantitative (0-400) ng/mL ABG pH 7.47 H (7.35-7.45) ABG pCO2 30 L (35-45) mmHG ABG pO2 51 L* (80-105) mmHG ABG HCO3 21.6 L (22-26) mmol/L ABG Total CO2 22 L (23-27) mmol/L ABG O2 Saturation 89 L (95-98) % ABG Base Excess -1 (-2-3) mmol/L O2 Delivery Device Nasal cannula Blood Gas Comments 5 min per liter Sodium (136-145) mmol/L Potassium (3.5-5.1) mmol/L Chloride (98-107) mmol/L Carbon Dioxide (21.0-32.0) mmol/L Anion Gap (7-15) meq/L BUN (7-18) mg/dL Creatinine (0.51-1.17) mg/dL Est Cr Clr Drug Dosing Estimated GFR (MDRD) mL/min Glucose (70-99) mg/dL Lactic Acid 1.4 (0.4-2.0) mmol/L Calcium (8.5-10.1) mg/dL Total Bilirubin (0.2-1.0) mg/dL AST (15-37) U/L ALT (12-78) U/L Alkaline Phosphatase (46-116) IU/L Troponin I High Sens (<=76) ng/L C-Reactive Protein (<=0.9) mg/dL Total Protein (6.4-8.2) g/dL Albumin (3.4-5.0) g/dL Influenza Type A RNA Negative (NEGATIVE) RSV RNA (INAAT) Negative (NEGATIVE) Influenza Type B RNA Negative (NEGATIVE) SARS-CoV-2 RNA (TON) Positive H (NEGATIVE) Meds: Medications Generic Name Dose Route Start Last Admin Trade Name Fredony PRN Reason Stop Dose Admin Heparin Sodium/Sodium Chloride 500 mls @ 25.909 mls/hr 04/26/21 19:00 04/26/21 19:35 Heparin 25,000 Units In 1/2 Ns 500 Ml IV 12 units/kg/hr TITRATE MAXINE 25.909 mls/hr Administration Protocol 12 UNITS/KG/HR Vancomycin HCl 2 gm/ Premix 400 mls @ 200 mls/hr 04/26/21 21:04 IV 04/26/21 23:03 STAT ONE Sodium Chloride 10 ml 04/26/21 15:17 Sodium Chloride 0.9% 10 Ml Syringe FLUSH ASDIRECTED PRN Keep Vein Open Discontinued Medications Generic Name Dose Route Start Last Admin Trade Name Dino PRN Reason Stop Dose Admin Albuterol 5 mg 04/26/21 15:55 04/26/21 16:40 Albuterol 0.083% 2.5 Mg/3 Ml Neb Soln NEB 04/26/21 15:56 5 mg ONETIME ONE Administration Heparin Sodium (Porcine) 5,000 units 04/26/21 18:46 04/26/21 19:05 Heparin Sodium 5,000 Units/Ml Vial IVPUSH 04/26/21 18:47 5,000 units ONETIME ONE Administration Heparin Sodium/Sodium Chloride Confirm 04/26/21 18:53 04/26/21 19:33 Heparin 25,000 Units In 1/2 Ns 500 Ml Administered 04/26/21 18:54 Not Given Dose 500 mls @ as directed .ROUTE .STK-MED ONE Cefepime HCl 2 gm/ Sodium 100 mls @ 200 mls/hr 04/26/21 21:04 Chloride IV 04/26/21 21:05 ONETIME ONE Iopamidol 100 ml 04/26/21 16:31 04/26/21 17:59 Iopamidol 755 Mg/Ml 100 Ml Bottle IVPUSH 04/26/21 16:32 100 ml ONETIME STA Administration Methylprednisolone Sodium Succinate 125 mg 04/26/21 21:04 Methylprednisolone Sodium Succinate 125 Mg/2 Ml Sdv IVPUSH 04/26/21 21:05 ONETIME ONE - Radiology Interpretation Free Text/Narrative:: chest x-ray with increasing pulmonary infiltrates compared to previous film on 04/18. interpreted by radiologist ct angio chest with multiple right sided segmental pulmonary embol in right lower lobe and middle lobe, severe covid pneumonia , trace bilateral pleural effusionsdiscussed with radiologist. - Re-Assessments/Exams Free Text/Narrative Re-Assessment/Exam: Patient is 17 days post covid positive diagnosis and post hospitalization with supplemental oxygen, worsening chest x-ray and increasing oxygen need. He was diashcarge home on 04/18 with a white count of 16,000, on combivent and albuterol. Increased work of breathing, respirations at 40 a minute. AT 5 lpm he is 89% and blood gas is Po2 of 50. Needs sepsis work up, high flow oxygen, albuterol neb. We currently do not have bipap or a ventilator here. Will need eventual transfer to [facility]. Will call when results are in. he is a full code, will retest for covid rsv/influenza. 04/26/21 16:45 Ct Pe protocol ordered. normal trop, ddimer >5000. 04/26/21 19:31 multiple PE, no right heart strain, severe covid pneumonia. Will give 5000 units bolus, then heparin drip 12 units/kg/hr. will need to discuss with [place] about possible transfer. concern for worsening disease, need for bipap, intubation. Maintaining 93% on 15 lpm 04/26/21 20:54 call to [facility] one call.will check with leadership about transfer. Concern for deterioration 04/26/21 20:59 [facility] will accept. 04/26/21 21:07 Dr. Sanchez will accept for care to the covid intermediate unit, dicsussed case with Dr. Underwood customer service coordinator also. would like solu medrol 125 mg IVP, cefepime and vancomycin. second started. Patient understands risks and possible complications of deterioration, bipap and intubation with concern for poor outcome. continues to choose code level 1. EMS transport 04/26/21 21:24 Departure - Departure Time of Disposition: 21:08 Disposition: DC/Tfer to [facility] 02 Clinical Impression: Pulmonary emboli, Pneumonia due to COVID-19 virus, Acute respiratory failure due to COVID-19 - Discharge Information Referrals: Val Liao PA-C [Primary Care Provider] - Forms: ED Department Discharge, Interfacility Transfer [facility] Sepsis Event Note (ED) - Evaluation Sepsis Screening Result: No Definite Risk - Focused Exam Vital Signs: Vital Signs Temp Pulse Resp BP Pulse Ox Pulse Ox Pulse Ox 04/26/21 19:59 28 H 135/92 H 94 L 04/26/21 19:15 109 H 28 H 151/76 H 92 L 04/26/21 19:00 109 H 24 H 139/83 95 04/26/21 18:30 109 H 27 H 135/83 96 04/26/21 18:15 112 H 24 H 132/71 96 04/26/21 18:14 96 04/26/21 18:00 113 H 26 H 146/73 H 97 04/26/21 17:30 112 H 26 H 133/72 92 L 04/26/21 17:15 114 H 30 H 121/75 88 L 04/26/21 17:10 88 L 04/26/21 17:00 115 H 24 H 122/72 90 L 88 L 04/26/21 16:42 116 H 26 H 140/83 85 L 04/26/21 16:40 86 L 04/26/21 16:25 112 H 31 H 158/100 H 88 L 04/26/21 15:55 107 H 33 H 178/91 H 91 L 04/26/21 15:25 105 H 36 H 163/87 H 92 L 04/26/21 15:23 102 H 22 H 153/93 H 92 L 90 L 04/26/21 14:55 36.4 C 104 H 30 H 174/88 H 89 L 04/26/21 14:50 37.1 C 91 21 H 153/93 H 87 L - My Orders Last 24 Hours: My Active Orders 04/26/21 15:17 Cardiac Monitoring [RC] . DIRECTED Sodium Chloride 0.9% [Saline Flush] 10 ml FLUSH ASDIRECTED PRN Blood Culture x2 Reflex Set [OM.PC] Stat Peripheral IV Insertion Adult [OM.PC] Routine 04/26/21 15:19 Peripheral IV Care [RC] . DIRECTED 04/26/21 15:23 Oxygen Therapy [RC] ASDIRECTED 04/26/21 15:30 CULTURE BLOOD [BC] Stat 04/26/21 15:35 CULTURE BLOOD [BC] Stat 04/26/21 15:55 RT Aerosol Therapy [RC] ASDIRECTED RT Oxygen High Humidity High Flow [RESPCARE] Stat 04/26/21 16:27 PE Chest [Ang Chest] [CT] Stat 04/26/21 19:00 Heparin Sodium/0.45% NaCl [Heparin 25,000 Units in 1/2 NS 500 ML] 500 ml IV TITRATE 04/26/21 21:04 VANCOmycin 2 GM/400 ML 2 gm Premix Bag 1 bag IV STAT - Assessment/Plan Last 24 Hours: My Active Orders 04/26/21 15:17 Cardiac Monitoring [RC] . DIRECTED Sodium Chloride 0.9% [Saline Flush] 10 ml FLUSH ASDIRECTED PRN Blood Culture x2 Reflex Set [OM.PC] Stat Peripheral IV Insertion Adult [OM.PC] Routine 04/26/21 15:19 Peripheral IV Care [RC] . DIRECTED 04/26/21 15:23 Oxygen Therapy [RC] ASDIRECTED 04/26/21 15:30 CULTURE BLOOD [BC] Stat 04/26/21 15:35 CULTURE BLOOD [BC] Stat 04/26/21 15:55 RT Aerosol Therapy [RC] ASDIRECTED RT Oxygen High Humidity High Flow [RESPCARE] Stat 04/26/21 16:27 PE Chest [Ang Chest] [CT] Stat 04/26/21 19:00 Heparin Sodium/0.45% NaCl [Heparin 25,000 Units in 1/2 NS 500 ML] 500 ml IV TITRATE 04/26/21 21:04 VANCOmycin 2 GM/400 ML 2 gm Premix Bag 1 bag IV STAT
[2021-04-26] MEDS ORDERED: Iopamidol 755 Mg/ML 100 ML Bottle IVPUSH STA (16:31)
[2021-04-26 16:53] LABS: RESPIRATORY SYNCYTIAL VIR NAA NEGATIVE (NEGATIVE)
[2021-04-26 17:00] LABS: CORONAVIRUS COVID-19 NAA POSITIVE (NEGATIVE)
[2021-04-26] MEDS ORDERED: Heparin Sodium 5,000 Units/ML Vial IVPUSH ONE (18:46)
[2021-04-26] MEDS ORDERED: Heparin Sodium/0.45% NaCl 500 ML ONE (18:53)
[2021-04-26] MEDS ORDERED: Heparin Sodium/0.45% NaCl 500 ML IV SCH (19:00)
[2021-04-26] MEDS ORDERED: Cefepime 2 GM in Sodium Chloride 0.9% 100 ML IV ONE (21:04)
[2021-04-26] MEDS ORDERED: methylPREDNISolone Sodium Succinate 125 MG/2 ML SDV IVPUSH ONE (21:04)
[2021-04-26] MEDS ORDERED: VANCOmycin 2 GM/400 ML 2 GM in Premix Bag 1 BAG IV ONE (21:04)
[2021-04-26 23:14] VITALS: BP 176/93; PULSE 102
== END 2021-04-26 22:45 ==
LOC: LL.ED 14:50
DX: U07.1 COVID-19 (principal); J12.82 Pneumonia due to coronavirus disease 2019; J96.00 Acute respiratory failure, unspecified whether with hypoxia or hypercapnia; I26.99 Other pulmonary embolism without acute cor pulmonale; E78.00 Pure hypercholesterolemia, unspecified; I10 Essential (primary) hypertension; E66.9 Obesity, unspecified; Z68.35 Body mass index [BMI] 35.0-35.9, adult; Z79.82 Long term (current) use of aspirin; Z79.899 Other long term (current) drug therapy; Z20.822 Contact with and (suspected) exposure to COVID-19
CPT/HCPCS: 0241U; 36415; 36600; 71275; 80053; 82803; 83605; 84484; 85025; 85379; 86140; 87040; 93005; 93010; 94640; 96365; 96366; 96368; 96375; 99284; 99285-25; J0692; J1644; J2930; J3370; J7613-GY; Q9967